=== PATIENT | female | born 1935 | race Caucasian/White ===

== ENCOUNTER 2016-04-04 15:00 | Outpatient (RCR) ==
[2015-12-28 02:20] VITALS: BMI 21.6
--- NOTE | 2016-03-09 09:19 | RS.OPPTDN ---
Subjective Date of Note: 03/07/16 Visit #: 7 Date of Evaluation: 02/23/16 Payer Source: MEDICARE Treatment Diagnosis: Right reverse total shoulder replacement Current Subjective/complaints:: Patient says she has had some stiffness to the R shoulder, but feels her elbow is gaining extension and she is able to reach better. Reports the heat feels like it helps more than the cold. *Precautions: Please follow protocol in pt's chart. Pain Assessment - Pain Description Pain Location: Right upper trap and arm with activity. Right side of neck also painful at times. Current Pain Intensity: 0/10, but increases with exercise - Heat/Cryotherapy Treatment: Hot Pack (15 mins to the R shoulder in supine) Interventions - Exercise/Activities/Manual Therapy Exercises/Activities: 2 sets 10-12 reps of AAROM right shoulder flex, ext, abd/ add, IR/ER, also right elbow extension stretching. Distraction of glenohumeral joint and oscilation of the RUE decreased pain with ex. 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 Contract/Relax multiple reps for elbow flex/ext. 1# ball for fire sprinkler inspector and wrist ext/flexion and elbow sup/pron x 10. Sitting: shoulder shrugs/scap adduction. Ended with pulleys for flexion limited range and table slides. Total minutes of Exercise: 30 Manual Therapy: NA HOME EXERCISE PROGRAM: Patient to follow previous exerciss per MD protocol. She was instructed to allow her elbow to hang by her side and to use the RUE as she was able throughout the day. She verbalized understanding. - Charges Total Direct Minutes: 30 Total Treatment Time: 45 Procedures billed for this date of service:: hp, ex2 Assessment: Patient is gaining mobility slowly to the elbow and shoulder. Pain is not present except with PROM end ranges. She feels improvement with stiffness with heat. Patient Education: Education of diagnosis, Body/Joint mechanics, Home Exercise Program, Home Safety, Activity Modification, Education of Plan of Care Patient demonstrates compliance with HEP?: Yes Short Term Goals Goal #1: Right shoulder flex 100 degrees AAROM Goal to be met by: 03/11/16 Progress towards Goal:: Progressing Goal #2: Right shoulder strength 3+/5 in all planes. Goal to be met by: 03/11/16 Progress towards Goal:: Progressing Goal #3: Right elbow extension -5 degrees. Goal to be met by: 03/11/16 Progress towards Goal:: Progressing Goal #4: Patient independent in beginning HEP. Goal to be met by: 03/11/16 Progress towards Goal:: Progressing [facility] Goals Goal #1: Right shoulder AROM WFL in all planes. Goal to be met by: 04/01/16 Goal #2: Right elbow extension 0 degrees. Goal to be met by: 04/01/16 Goal #3: Right shoulder strength 4 - 4+/5. Goal to be met by: 04/01/16 Goal #4: Independent in advanced HEP. Goal to be met by: 04/01/16 Plan PLAN OF CARE EXPIRES ON:: 04/01/16 ORDER # VISITS AND/OR THROUGH DATE: 04/01/2016 PLAN: Progress Exercises
--- NOTE | 2016-03-09 10:10 | RS.OPPTDN ---
Subjective Date of Note: 03/09/16 Visit #: 8 Date of Evaluation: 02/23/16 Payer Source: MEDICARE Treatment Diagnosis: Right reverse total shoulder replacement Current Subjective/complaints:: Patient states she believes she is improving. Reports she is trying to keep her arm down while she walks so that it may extend better. She says she thinks her elbow swelling and extension is improving. *Precautions: Please follow protocol in pt's chart. Pain Assessment - Pain Description Pain Location: Right upper trap and arm with activity. Right side of neck also painful at times. Current Pain Intensity: 0/10, but increases with exercise - Heat/Cryotherapy Treatment: Hot Pack (20 mins to the R shoulder in sitting) Interventions - Exercise/Activities/Manual Therapy Exercises/Activities: 2 sets 10-12 reps of AAROM right shoulder flex, ext, abd/ add, IR/ER, also right elbow extension stretching. Distraction of glenohumeral joint and oscilation of the RUE decreased pain with ex. 3# and 5# digiflexor for director employee safety and health. Contract/Relax multiple reps for elbow flex/ext. 1# ball for director employee safety and health and wrist ext/flexion and elbow sup/pron x 10. 1# for static elbow extension stretch. MT of STM and DTM to the forearm, biceps to ease guarding to improve extension. Sitting: shoulder shrugs/scap adduction. Continued with further stretching for shoulder and elbow. Ended with pulleys for flexion limited range and table slides. Total minutes of Exercise: 35 Manual Therapy: NA HOME EXERCISE PROGRAM: Patient to follow previous exerciss per MD protocol. She was instructed to allow her elbow to hang by her side and to use the RUE as she was able throughout the day. She verbalized understanding. - Charges Total Direct Minutes: 35 Total Treatment Time: 55 Procedures billed for this date of service:: hp, ex2 Assessment: Patient progressing well with mobility and strength. She displayed full extension with stretching and MT today. Patient Education: Education of diagnosis, Body/Joint mechanics, Home Exercise Program, Home Safety, Activity Modification, Education of Plan of Care Patient demonstrates compliance with HEP?: Yes Short Term Goals Goal #1: Right shoulder flex 100 degrees AAROM Goal to be met by: 03/11/16 Progress towards Goal:: Progressing Goal #2: Right shoulder strength 3+/5 in all planes. Goal to be met by: 03/11/16 Progress towards Goal:: Progressing Goal #3: Right elbow extension -5 degrees. Goal to be met by: 03/11/16 Progress towards Goal:: Progressing Goal #4: Patient independent in beginning HEP. Goal to be met by: 03/11/16 Progress towards Goal:: Progressing [facility] Goals Goal #1: Right shoulder AROM WFL in all planes. Goal to be met by: 04/01/16 Goal #2: Right elbow extension 0 degrees. Goal to be met by: 04/01/16 Goal #3: Right shoulder strength 4 - 4+/5. Goal to be met by: 04/01/16 Goal #4: Independent in advanced HEP. Goal to be met by: 04/01/16 Plan PLAN OF CARE EXPIRES ON:: 04/01/16 ORDER # VISITS AND/OR THROUGH DATE: 04/01/2016 PLAN: Progress Exercises
--- NOTE | 2016-03-10 10:14 | RS.OPPTDN ---
Subjective Date of Note: 03/10/16 Visit #: 8 Date of Evaluation: 02/23/16 Payer Source: MEDICARE Treatment Diagnosis: Right reverse total shoulder replacement Current Subjective/complaints:: Patient says she is happy about her arm getting straighter, but would like to lift her shoulder higher. She says her arm does not really hurt until it is being moved by us (at end ranges or extending the elbow) or with Active flexion. *Precautions: Please follow protocol in pt's chart. Pain Assessment - Pain Description Pain Location: R shoulder with active motion or with end range PROM/stretch to elbow Current Pain Intensity: 0/10, but increases with exercise - Heat/Cryotherapy Treatment: Hot Pack (to the R shoulder and upper arm in sitting x 20) Interventions - Exercise/Activities/Manual Therapy Exercises/Activities: PROM/AAROM of the shoulder for flex/ext, abd/add, short range IR/ER. Also, stretching for the elbow to improve elbow extension. 3# and 5# digiflexor for varitypist. Contract/Relax multiple reps for elbow flex/ext. 1 # ball for varitypist and wrist ext/flexion and elbow sup/pron x 10. 1# for static elbow extension stretch. MT of STM and DTM to the forearm, biceps to ease guarding to improve extension. Sitting: shoulder shrugs/scap adduction. Continued with further stretching for shoulder and elbow. Ended with pulleys for flexion limited range and table slides. Total minutes of Exercise: 30 Manual Therapy: NA HOME EXERCISE PROGRAM: Patient to follow previous exerciss per MD protocol. She was instructed to allow her elbow to hang by her side and to use the RUE as she was able throughout the day. She verbalized understanding. - Charges Total Direct Minutes: 30 Total Treatment Time: 50 Procedures billed for this date of service:: hp, ex2 Assessment: Patient demonstrating improved passive shoulder flexion and elbow extension. Ext is WNL with MT and static stretching. She is able to actively elevate the shoulder 45 degrees in supine, but only about 30 degrees in sitting. AA flexion to 95 with less guarding in supine. Patient Education: Education of diagnosis, Body/Joint mechanics, Home Exercise Program, Home Safety, Activity Modification, Education of Plan of Care Patient demonstrates compliance with HEP?: Yes Short Term Goals Goal #1: Right shoulder flex 100 degrees AAROM Goal to be met by: 03/11/16 Progress towards Goal:: Progressing Goal #2: Right shoulder strength 3+/5 in all planes. Goal to be met by: 03/11/16 Progress towards Goal:: Progressing Goal #3: Right elbow extension -5 degrees. Goal to be met by: 03/11/16 Progress towards Goal:: Progressing Goal #4: Patient independent in beginning HEP. 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 Goal to be met by: 04/01/16 Progress towards goal: Progressing Goal #2: Right elbow extension 0 degrees. Goal to be met by: 04/01/16 Progress towards goal: Progressing Goal #3: Right shoulder strength 4 - 4+/5. Goal to be met by: 04/01/16 Goal #4: Independent in advanced HEP. Goal to be met by: 04/01/16 Plan PLAN OF CARE EXPIRES ON:: 04/01/16 ORDER # VISITS AND/OR THROUGH DATE: 04/01/2016 PLAN: Progress Exercises
--- NOTE | 2016-03-15 10:00 | RS.OPPTDN ---
Subjective Date of Note: 03/15/16 Visit #: 9 Date of Evaluation: 02/23/16 Payer Source: MEDICARE Treatment Diagnosis: Right reverse total shoulder replacement Current Subjective/complaints:: Patient c/o arm being sore all weekend. Describes it as dull ache. She says that she has been performing HEP and stretching her elbow often. She says she has been using heat a lot to decrease pain and improve mobility. *Precautions: Please follow protocol in pt's chart. Pain Assessment - Pain Description Pain Location: R shoulder with active motion or with end range PROM/stretch to elbow Current Pain Intensity: 0/10, but increases with exercise - Heat/Cryotherapy Treatment: Hot Pack (15 mins to the R shoulder (longways) along the biceps and volar surface of forearm) Interventions - Exercise/Activities/Manual Therapy Exercises/Activities: PROM/AAROM of the shoulder for flex/ext, abd/add, short range IR/ER. Also, stretching for the elbow to improve elbow extension. 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 Contract/Relax multiple reps for elbow flex/ext. Active shoulder flexion x 8 reps. 1# ball for offset proof press operator and wrist ext/flexion and elbow sup/pron x 10. 1# for static elbow extension stretch. Continued with MT of STM and DTM to the forearm, biceps to ease guarding to improve extension. Sitting: shoulder shrugs/scap adduction, active shoulder flexion. Continued with further stretching for shoulder and elbow. Ended with pulleys for flexion limited range x 3 mins. Total minutes of Exercise: 35 Manual Therapy: NA HOME EXERCISE PROGRAM: Patient to follow previous exerciss per MD protocol. She was instructed to allow her elbow to hang by her side and to use the RUE as she was able throughout the day. She verbalized understanding. - Charges Total Direct Minutes: 35 Total Treatment Time: 50 Procedures billed for this date of service:: hp, ex2 Assessment: Patient demos 95 degrees shoulder passive flexion, active to 45-50 degrees with beginning to flex the elbow to compensate. She is doing great with demonstrating less need for stretching to acquire full extension. She did have elevated pain over the weekend and self treated with heat and HEP, which did relieve it. She is not taking any pain meds currently. Improved range with pulleys as well. Patient Education: Education of diagnosis, Body/Joint mechanics, Home Exercise Program, Home Safety, Activity Modification, Education of Plan of Care Patient demonstrates compliance with HEP?: Yes Short Term Goals Goal #1: Right shoulder flex 100 degrees AAROM Goal to be met by: 03/11/16 Progress towards Goal:: Progressing Comments:: 90-95 on avg Goal #2: Right shoulder strength 3+/5 in all planes. Goal to be met by: 03/11/16 Progress towards Goal:: Met Goal #3: Right elbow extension -5 degrees. Goal to be met by: 03/11/16 Progress towards Goal:: Progressing Goal #4: Patient independent in beginning HEP. Goal to be met by: 03/11/16 Progress towards Goal:: Met [facility] Goals Goal #1: Right shoulder AROM WFL in all planes. Goal to be met by: 04/01/16 Progress towards goal: Progressing Goal #2: Right elbow extension 0 degrees. Goal to be met by: 04/01/16 Progress towards goal: Progressing Goal #3: Right shoulder strength 4 - 4+/5. Goal to be met by: 04/01/16 Goal #4: Independent in advanced HEP. Goal to be met by: 04/01/16 Plan PLAN OF CARE EXPIRES ON:: 04/01/16 ORDER # VISITS AND/OR THROUGH DATE: 04/01/2016 PLAN: Progress Exercises
--- NOTE | 2016-03-16 14:40 | RS.OPPTDN ---
Subjective Date of Note: 03/16/16 Visit #: 10 Date of Evaluation: 02/23/16 Payer Source: MEDICARE Treatment Diagnosis: Right reverse total shoulder replacement Current Subjective/complaints:: Patient says she has intermittent soreness, but knows she is improving. Reports that she is "working it" often. *Precautions: Please follow protocol in pt's chart. Pain Assessment - Pain Description Pain Location: R shoulder with active motion or with end range PROM/stretch to elbow Current Pain Intensity: 0/10, but increases with exercise - Heat/Cryotherapy Treatment: Hot Pack (20 mins over the volar surface of the R UE and shoulder ( lengthwise)) Interventions - Exercise/Activities/Manual Therapy Exercises/Activities: PROM/AAROM of the shoulder for flex/ext, abd/add, short range IR/ER. Also, stretching for the elbow to improve elbow extension. 3# and 5# digiflexor for sales expert. Contract/Relax multiple reps for elbow flex/ext. Active shoulder flexion x 8 reps. 1# ball for sales expert and wrist ext/flexion and elbow sup/pron x 10. 1# for static elbow extension stretch. Continued with MT of STM and DTM to the forearm, biceps to ease guarding to improve extension. Sitting: Passive flexion and knee/wrist extension, shoulder shrugs/scap adduction, active shoulder flexion. Wall slides with both hands limited range. Total minutes of Exercise: 35 Manual Therapy: NA HOME EXERCISE PROGRAM: Patient to follow previous exerciss per MD protocol. She was instructed to allow her elbow to hang by her side and to use the RUE as she was able throughout the day. She verbalized understanding. - Charges Total Direct Minutes: 35 Total Treatment Time: 55 Procedures billed for this date of service:: ex2, hp Assessment: Patient has progressed with mobility to the R elbow and shoulder well. She does have about 50% limitation in active functional elevation and rotation. She is demo less swelling to the upper arm and increased kayden to more aggressive activity. Patient Education: Education of diagnosis, Body/Joint mechanics, Home Exercise Program, Home Safety, Activity Modification, Education of Plan of Care Patient demonstrates compliance with HEP?: Yes Short Term Goals Goal #1: Right shoulder flex 100 degrees AAROM Goal to be met by: 03/11/16 Progress towards Goal:: Progressing Comments:: 95 degrees max on avg Goal #2: Right shoulder strength 3+/5 in all planes. Goal to be met by: 03/11/16 Progress towards Goal:: Met Goal #3: Right elbow extension -5 degrees. Goal to be met by: 03/11/16 Progress towards Goal:: Partially Met Comments:: 0 with stretching, avg -5-7 degrees Goal #4: Patient independent in beginning HEP. Goal to be met by: 03/11/16 Progress towards Goal:: Met [facility] Goals Goal #1: Right shoulder AROM WFL in all planes. Goal to be met by: 04/01/16 Progress towards goal: Progressing Goal #2: Right elbow extension 0 degrees. Goal to be met by: 04/01/16 Progress towards goal: Progressing Goal #3: Right shoulder strength 4 - 4+/5. Goal to be met by: 04/01/16 Goal #4: Independent in advanced HEP. Goal to be met by: 04/01/16 Plan PLAN OF CARE EXPIRES ON:: 04/01/16 ORDER # VISITS AND/OR THROUGH DATE: 04/01/2016 PLAN: Progress Exercises
--- NOTE | 2016-03-18 10:11 | RS.CXNS ---
Date of scheduled appointment: 03/18/16 Type: Cancel (weather)
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
--- NOTE | 2016-03-23 09:51 | RS.OPPTDN ---
Subjective Date of Note: 03/23/16 Visit #: 12 Date of Evaluation: 02/23/16 Payer Source: MEDICARE Treatment Diagnosis: Right reverse total shoulder replacement Current Subjective/complaints:: Patient says she is still trying to perform her HEP as often as she can. Says she uses heat a lot for pain. States she is able to see improvement with therapy and how much more her arm is able to move, but difficult for her to do on her own. *Precautions: Please follow protocol in pt's chart. Pain Assessment - Pain Description Pain Location: R shoulder and upper arm, under the arm and at the shoulderblade. Current Pain Intensity: increased stiffness and sore today - Heat/Cryotherapy Treatment: Hot Pack (15 mins to the R shoulder and forearm in a stretched position in sitting) Interventions - Exercise/Activities/Manual Therapy Exercises/Activities: PROM/AAROM of the shoulder for flex/ext, abd/add, short range IR/ER. Also, stretching for the elbow to improve elbow extension. 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 Manual isometrics for flex/ext, IR/ER 2x5. Contract/Relax multiple reps for elbow flex/ext. Active shoulder flexion x 8 reps. 1# ball for ore miner blasting and wrist ext/flexion and elbow sup/pron x 10. 1# for static elbow extension stretch over pillow. Continued with MT of STM and DTM to the forearm, biceps to ease guarding to improve extension. Sitting: shoulder shrugs/scap adduction, AA shoulder flexion and then active. Shoulder pulleys for 3mins. Total minutes of Exercise: 33 Manual Therapy: NA HOME EXERCISE PROGRAM: Patient to follow previous exerciss per MD protocol. She was instructed to allow her elbow to hang by her side and to use the RUE as she was able throughout the day. She verbalized understanding. - Charges Total Direct Minutes: 33 Total Treatment Time: 48 Procedures billed for this date of service:: hp, ex2 Assessment: Patient able to kayden increased passive and AA shoulder flexion in sitting. She appears to be consistent with HEP. Remains with elbow extension limitation actively, but passively able to achieve WNL. Patient Education: Education of diagnosis, Body/Joint mechanics, Home Exercise Program, Home Safety, Activity Modification, Education of Plan of Care Patient demonstrates compliance with HEP?: Yes Short Term Goals Goal #1: Right shoulder flex 100 degrees AAROM Goal to be met by: 03/11/16 Progress towards Goal:: Progressing Goal #2: Right shoulder strength 3+/5 in all planes. Goal to be met by: 03/11/16 Progress towards Goal:: Met Goal #3: Right elbow extension -5 degrees. Goal to be met by: 03/11/16 Progress towards Goal:: Partially Met Comments:: passively Goal #4: Patient independent in beginning HEP. Goal to be met by: 03/11/16 Progress towards Goal:: Met Clinical Trainer Goals Goal #1: Right shoulder AROM WFL in all planes. Goal to be met by: 04/01/16 Progress towards goal: Progressing Goal #2: Right elbow extension 0 degrees. Goal to be met by: 04/01/16 Progress towards goal: Progressing Goal #3: Right shoulder strength 4 - 4+/5. Goal to be met by: 04/01/16 Goal #4: Independent in advanced HEP. Goal to be met by: 04/01/16 Plan PLAN OF CARE EXPIRES ON:: 04/01/16 ORDER # VISITS AND/OR THROUGH DATE: 04/01/2016 PLAN: Progress Exercises
--- NOTE | 2016-03-23 13:54 | RS.PTSUM ---
Progress Note/Summary Date of Note: 03/23/16 Date of Evaluation: 02/23/16 Number of Visits: 10 Reporting Period for this Progress Note: 02/23/16 through 03/16/16 Current Complaints/Gains: Patient reports less pain with mobility. She denies pain unless at endrange with PROM. She is not taking pain medication. Reports she is performing HEP often and also reports she is sleeping well. Objective Measurements/Presentation: PROM shoulder flexion 90-95 degrees in supine and sitting. Active shoulder flexion is 25-30 before pain. 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 Demonstrates good demonstration of HEP. G Codes: Carry current CK. Carry goal CJ Source of G Code Score: UE functional scale 43/80=46% impairment (score at evaluation was 19/80=76% impairment) - Short Term Goals Goal #1: Right shoulder flex 100 degrees AAROM Goal to be met by: 04/06/16 Progress towards Goal:: Progressing Goal #2: Right shoulder strength 4/5 in all planes. Goal to be met by: 04/06/16 Goal #3: Right elbow extension -5 degrees. Goal to be met by: 04/06/16 Progress towards Goal:: Partially Met Goal #4: Patient independent in beginning HEP. Goal to be met by: 03/11/16 Progress towards Goal:: Met - Candle Maker Goals Goal #1: Right shoulder AROM WFL in all planes. Goal to be met by: 04/22/16 Progress towards goal: Progressing Goal #2: Right elbow extension 0 degrees. Goal to be met by: 04/22/16 Progress towards goal: Progressing Goal #3: Right shoulder strength 4 - 4+/5. Goal to be met by: 04/22/16 Goal #4: Independent in advanced HEP. Goal to be met by: 04/22/16 - Assessment Assessment of Improvement/Progress: Patient demonstrates progress with PROM and with subjective reports of less pain and improved sleep. She exhibits an improved functional score on the FOM from 76% to 46% impairment. She continues to demonstrate limited functional reaching due to limited AROM of the right shoulder. She is right hand dominant and requires further therapy to gain functional AROM to perform selfcare and ADL's. - Plan Plan: Continue Plan of Care Comments: We have requested an order to continue therapy 4 more weeks. PLAN OF CARE EXPIRES ON:: 04/22/16 ORDER # VISITS AND/OR THROUGH DATE: 04/22/16
--- NOTE | 2016-03-24 10:28 | RS.OPPTDN ---
Subjective Date of Note: 03/24/16 Visit #: 13 Date of Evaluation: 02/23/16 Payer Source: MEDICARE Treatment Diagnosis: Right reverse total shoulder replacement Current Subjective/complaints:: Patient says she notices she can raise her arm more last night. States she is working on HEP. *Precautions: Please follow protocol in pt's chart. Pain Assessment - Pain Description Pain Location: R shoulder and upper arm, under the arm and at the shoulderblade. Current Pain Intensity: increased stiffness and sore today - Heat/Cryotherapy Treatment: Hot Pack (lengthwise over the R shoulder/forearm x 20 mins in sitting ) Interventions - Exercise/Activities/Manual Therapy Exercises/Activities: PROM/AAROM of the shoulder for flex/ext, abd/add, short range IR/ER. Also, stretching for the elbow to improve elbow extension. 3# and 5# digiflexor for laundry machine operator. Manual isometrics for flex/ext, IR/ER 2x5. Contract/Relax multiple reps for elbow flex/ext. Active shoulder flexion 3x5 reps with further passive after end range actively. 1# dumbell for laundry machine operator and wrist ext/flexion and elbow sup/pron x 10. 1# for static elbow extension stretch over pillow. Continued with MT of STM and DTM to the forearm, biceps to ease guarding to improve extension. Sitting: shoulder shrugs/scap adduction, AA shoulder flexion and then active. Red tband for therapy stick retraction 2/ 5. Total minutes of Exercise: 30 Manual Therapy: NA HOME EXERCISE PROGRAM: Patient to follow previous exerciss per MD protocol. She was instructed to allow her elbow to hang by her side and to use the RUE as she was able throughout the day. She verbalized understanding. - Charges Total Direct Minutes: 30 Total Treatment Time: 50 Procedures billed for this date of service:: hp, ex2 Assessment: Patient kayden all therex much better today, demos increased passive ABD and active shoulder flexion in supine with less pain and no shaking as she consistently had before today. Patient Education: Education of diagnosis, Body/Joint mechanics, Home Exercise Program, Home Safety, Activity Modification, Education of Plan of Care Patient demonstrates compliance with HEP?: Yes Short Term Goals Goal #1: Right shoulder flex 100 degrees AAROM Goal to be met by: 04/06/16 Progress towards Goal:: Progressing Goal #2: Right shoulder strength 4/5 in all planes. Goal to be met by: 04/06/16 Goal #3: Right elbow extension -5 degrees. Goal to be met by: 04/06/16 Progress towards Goal:: Partially Met Goal #4: Patient independent in beginning HEP. Goal to be met by: 03/11/16 Progress towards Goal:: Met Group Home Goals Goal #1: Right shoulder AROM WFL in all planes. Goal to be met by: 04/22/16 Progress towards goal: Progressing Goal #2: Right elbow extension 0 degrees. Goal to be met by: 04/22/16 Progress towards goal: Progressing Goal #3: Right shoulder strength 4 - 4+/5. Goal to be met by: 04/22/16 Goal #4: Independent in advanced HEP. Goal to be met by: 04/22/16 Plan PLAN OF CARE EXPIRES ON:: 04/22/16 ORDER # VISITS AND/OR THROUGH DATE: 04/22/16 PLAN: Progress Exercises
--- NOTE | 2016-03-29 10:29 | RS.OPPTDN ---
Subjective Date of Note: 03/29/16 Visit #: 14 Date of Evaluation: 02/23/16 Payer Source: MEDICARE Treatment Diagnosis: Right reverse total shoulder replacement Current Subjective/complaints:: Patient states she has been working on ex at home, but does not know what else to do to make her elbow straight. Many variations were given today to help with this stretch. She is having pain only with end ranges passively or if she actively raises in supine/sitting. She says she still has trouble trying to get a non-buttoned shirt on (over her head) . *Precautions: Please follow protocol in pt's chart. Pain Assessment - Pain Description Pain Location: R shoulder and upper arm, under the arm and at the shoulderblade. Current Pain Intensity: increased stiffness and sore today - Heat/Cryotherapy Treatment: Hot Pack (20 mins to the L shoulder in sitting.) Interventions - Exercise/Activities/Manual Therapy Exercises/Activities: PROM/AAROM of the shoulder for flex/ext, abd/add, short range IR/ER. Also, stretching for the elbow to improve elbow extension. 5 # digiflexor for woven label designer. Manual isometrics for flex/ext, IR/ER 2x5. Contract/ Relax multiple reps for elbow flex/ext. Active shoulder flexion 3x5 reps with further passive after end range actively. Progressed to 2# dumbell for woven label designer and wrist ext/flexion and elbow sup/pron x 10. 2# for static elbow extension stretch over pillow. Continued with MT of STM and DTM to the forearm, biceps to ease guarding to improve extension. Sitting: shoulder shrugs/scap adduction, AA shoulder flexion and then active. Red tband for therapy stick retraction 2/ 5. Total minutes of Exercise: 35 Manual Therapy: NA HOME EXERCISE PROGRAM: Patient to follow previous exerciss per MD protocol. She was instructed to allow her elbow to hang by her side and to use the RUE as she was able throughout the day. She verbalized understanding. - Charges Total Direct Minutes: 35 Total Treatment Time: 55 Procedures billed for this date of service:: ex2, hp Assessment: Patient shows less pain with increased PROM and increased AROM seen with scaption and flexion in supine. Sitting, patient is able to kayden increased Passive flexion. Good control with eccentric flex and with all elbow and wrist as well (using weight with the latter two). Patient Education: Education of diagnosis, Body/Joint mechanics, Home Exercise Program, Home Safety, Activity Modification, Education of Plan of Care Patient demonstrates compliance with HEP?: Yes Short Term Goals Goal #1: Right shoulder flex 100 degrees AAROM Goal to be met by: 04/06/16 Progress towards Goal:: Progressing Goal #2: Right shoulder strength 4/5 in all planes. Goal to be met by: 04/06/16 Goal #3: Right elbow extension -5 degrees. Goal to be met by: 04/06/16 Progress towards Goal:: Partially Met Goal #4: Patient independent in beginning HEP. Goal to be met by: 03/11/16 Progress towards Goal:: Met Board Certified Music Therapist Goals Goal #1: Right shoulder AROM WFL in all planes. Goal to be met by: 04/22/16 Progress towards goal: Progressing Goal #2: Right elbow extension 0 degrees. Goal to be met by: 04/22/16 Progress towards goal: Progressing Goal #3: Right shoulder strength 4 - 4+/5. Goal to be met by: 04/22/16 Goal #4: Independent in advanced HEP. Goal to be met by: 04/22/16 Plan PLAN OF CARE EXPIRES ON:: 04/22/16 ORDER # VISITS AND/OR THROUGH DATE: 04/22/16 PLAN: Progress Exercises
--- NOTE | 2016-03-30 11:32 | RS.OPPTDN ---
Subjective Date of Note: 03/30/16 Visit #: 15 Date of Evaluation: 02/23/16 Payer Source: MEDICARE Treatment Diagnosis: Right reverse total shoulder replacement Current Subjective/complaints:: Patient says she has been working on exercises yesterday all day, mainly focusing on straightening the elbow. She also says she is worried about continued pain at the R shoulder. Encouraged her that this is a surgery that will take time to heal and may take up to 12 months and she is making progress. *Precautions: Please follow protocol in pt's chart. Pain Assessment - Pain Description Pain Location: R shoulder and upper arm, under the arm and at the shoulderblade. Current Pain Intensity: increased stiffness and sore today - Heat/Cryotherapy Treatment: Hot Pack (20 mins to the R forearm and shoulder lengthwise in sitting , with elbow ext) Interventions - Exercise/Activities/Manual Therapy Exercises/Activities: Continued with PROM/AAROM of the shoulder for flex/ext, abd/add, short range IR/ER. Also, stretching for the elbow to improve elbow extension. 5# digiflexor for dog or horse racing official. Manual isometrics for flex/ext, IR/ER 2x5. Contract/Relax multiple reps for elbow flex/ext. Active shoulder flexion 3x5 reps with further passive after end range actively. Progressed to 2# dumbell for dog or horse racing official and wrist ext/flexion and elbow sup/pron x 10. 1# and 2# for static elbow extension stretch over pillow. Active shoulder "punches" in supine and Active shoulder flexion in supine. 1# therapy stick for bilateral shoulder flexion and press ups 3/5. Sitting: shoulder shrugs/scap adduction, AA shoulder flexion and then active. Total minutes of Exercise: 36 Manual Therapy: NA HOME EXERCISE PROGRAM: Patient to follow previous exerciss per MD protocol. She was instructed to allow her elbow to hang by her side and to use the RUE as she was able throughout the day. She verbalized understanding. - Charges Total Direct Minutes: 36 Total Treatment Time: 51 Procedures billed for this date of service:: hp, ex2 Assessment: Patient demo increased AAROM of the R shoulder during wand exercises , showing good control with eccentric contraction as well as increased Active flexion in sitting with less shaking. Patient more encouraged and felt good about progress during session today and especially after she had seen how well mobility is improving. Patient Education: Education of diagnosis, Body/Joint mechanics, Home Exercise Program, Home Safety, Activity Modification, Education of Plan of Care Patient demonstrates compliance with HEP?: Yes Short Term Goals Goal #1: Right shoulder flex 100 degrees AAROM Goal to be met by: 04/06/16 (75%) Progress towards Goal:: Progressing Goal #2: Right shoulder strength 4/5 in all planes. Goal to be met by: 04/06/16 Goal #3: Right elbow extension -5 degrees. Goal to be met by: 04/06/16 Progress towards Goal:: Partially Met Goal #4: Patient independent in beginning HEP. Goal to be met by: 03/11/16 Progress towards Goal:: Met [facility] Goals Goal #1: Right shoulder AROM WFL in all planes. Goal to be met by: 04/22/16 Progress towards goal: Progressing Goal #2: Right elbow extension 0 degrees. Goal to be met by: 04/22/16 Progress towards goal: Progressing Goal #3: Right shoulder strength 4 - 4+/5. Goal to be met by: 04/22/16 Goal #4: Independent in advanced HEP. Goal to be met by: 04/22/16 Plan PLAN OF CARE EXPIRES ON:: 04/22/16 ORDER # VISITS AND/OR THROUGH DATE: 04/22/16 PLAN: Progress Exercises
--- NOTE | 2016-04-01 12:15 | RS.OPPTDN ---
Subjective Date of Note: 04/01/16 Visit #: 16 Date of Evaluation: 02/23/16 Payer Source: MEDICARE Treatment Diagnosis: Right reverse total shoulder replacement Current Subjective/complaints:: Patient says, "I'm really trying to keep my arm straight." "I work on it all the time." She reports she can tell she is able to lift her arm higher and better. *Precautions: Please follow protocol in pt's chart. Pain Assessment - Pain Description Pain Location: R shoulder and upper arm, under the arm and at the shoulderblade. Current Pain Intensity: pain meds are not taken prior to PT or any other time throughout her day - Heat/Cryotherapy Treatment: Hot Pack (20 mins lengthwise along the R forearm and shoulder in extension stretch (elbow)) Interventions - Exercise/Activities/Manual Therapy Exercises/Activities: Continued with PROM/AAROM of the shoulder for flex/ext, abd/add, short range IR/ER. Also, stretching for the elbow to improve elbow extension. Manual isometrics for flex/ext, IR/ER 2x5. Contract/Relax multiple reps for elbow flex/ext. Active shoulder flexion 3x5 reps with further passive after end range actively. 1# dumbell for rolling up machine operator and wrist ext/ flexion and elbow sup/pron x 10. 1# and 2# for static elbow extension stretch over pillow as well as for supination. Joint mobs to improve elbow supination and extension. Grades I and II. Active shoulder "punches" in supine and Active shoulder flexion in supine. 1# therapy stick for bilateral shoulder flexion and press ups 3/5. Sitting: shoulder shrugs/scap adduction, AA shoulder flexion and then active. Plant Nursery Worker strength and mobility measurements taken. Total minutes of Exercise: 35 Manual Therapy: NA HOME EXERCISE PROGRAM: Patient to follow previous exerciss per MD protocol. She was instructed to allow her elbow to hang by her side and to use the RUE as she was able throughout the day. She verbalized understanding. - Objective Findings Observations,measurements,etc.: Plant Nursery Worker strength 20# in 3rd position for the R, 21 # for the L. Active Flexion in sitting 62 degrees, abd 55 degrees, but with compensation. . Passive Flexion 93 degrees, Abd in scaption plane for comfort 70 degrees. - Charges Total Direct Minutes: 35 Total Treatment Time: 55 Procedures billed for this date of service:: hp, ex2 Assessment: Improved kayden for increasing exercises in the department and patient is more consistent with therex at home. She is more encouraged about her progress at this point because she can see her improvement better and only experiencing pain at end range passively or with active flexion. She has slightly more limitation of flexion in sitting than supine, but in the past week , she is able to relax more and demos improved mobility. Patient Education: Education of diagnosis, Body/Joint mechanics, Home Exercise Program, Home Safety, Activity Modification, Education of Plan of Care Patient demonstrates compliance with HEP?: Yes Short Term Goals Goal #1: Right shoulder flex 100 degrees AAROM Goal to be met by: 04/06/16 (75%) Progress towards Goal:: Progressing Goal #2: Right shoulder strength 4/5 in all planes. Goal to be met by: 04/06/16 Goal #3: Right elbow extension -5 degrees. Goal to be met by: 04/06/16 Progress towards Goal:: Partially Met Goal #4: Patient independent in beginning HEP. Goal to be met by: 03/11/16 Progress towards Goal:: Met Cementer Machine Applicator Goals Goal #1: Right shoulder AROM WFL in all planes. Goal to be met by: 04/22/16 Progress towards goal: Progressing Goal #2: Right elbow extension 0 degrees. Goal to be met by: 04/22/16 Progress towards goal: Progressing Goal #3: Right shoulder strength 4 - 4+/5. Goal to be met by: 04/22/16 Goal #4: Independent in advanced HEP. Goal to be met by: 04/22/16 Plan PLAN OF CARE EXPIRES ON:: 04/22/16 ORDER # VISITS AND/OR THROUGH DATE: 04/22/16 PLAN: Progress Exercises Comments:: Patient returns to MD April 04. Anticipate continuation orders.
--- NOTE | 2016-04-04 16:15 | RS.OPPTDN ---
Subjective Date of Note: 04/04/16 Visit #: 17 Date of Evaluation: 02/23/16 Payer Source: MEDICARE Treatment Diagnosis: Right reverse total shoulder replacement Current Subjective/complaints:: Patient very happy. She has had a good report from her ortho this morning and presents with continuation orders 2-3 times per week x 4-6 weeks. She says xray looked great and she may now work on more exercises at home. She says she would like heat today because she is fatigued from 2 prior appts and a little stiff. *Precautions: Please follow protocol in pt's chart. Pain Assessment - Pain Description Pain Location: R shoulder and upper arm, under the arm and at the shoulderblade. Current Pain Intensity: pain meds are not taken prior to PT or any other time throughout her day - Heat/Cryotherapy Treatment: Hot Pack (20 mins to the R shoulder in sitting with elbow extended) Interventions - Exercise/Activities/Manual Therapy Exercises/Activities: Continued with PROM/AAROM of the shoulder for flex/ext, abd/add, short range IR/ER. Also, continued stretching for the elbow to improve elbow extension. Manual isometrics for flex/ext, IR/ER 2x5. Contract /Relax multiple reps for elbow flex/ext. Active shoulder flexion 3x5 reps with further passive after end range actively. 1# dumbell for soft work wrapper layer and examiner and wrist ext/ flexion and elbow sup/pron x 10. 1# dumbell for stretching to elbow extension and as for supination. Joint mobs to improve elbow supination and extension. Active shoulder "punches" in supine and Active shoulder flexion in supine. 1 # therapy stick for bilateral shoulder flexion and press ups 3/5. Sitting: shoulder shrugs/scap adduction, AA shoulder flexion and then active. Total minutes of Exercise: 35 Manual Therapy: NA HOME EXERCISE PROGRAM: Patient to follow previous exerciss per MD protocol. She was instructed to allow her elbow to hang by her side and to use the RUE as she was able throughout the day. She verbalized understanding. - Charges Total Direct Minutes: 35 Total Treatment Time: 55 Procedures billed for this date of service:: jorje hanley Assessment: Patient received a continuation order 2-3 x 4-6 more weeks. Patient received positive feedback from her ortho today. She was more fatigued today than usual due to several appointments. Patient Education: Education of diagnosis, Body/Joint mechanics, Home Exercise Program, Home Safety, Activity Modification, Education of Plan of Care Patient demonstrates compliance with HEP?: Yes Short Term Goals Goal #1: Right shoulder flex 100 degrees AAROM Goal to be met by: 04/06/16 (75%) Progress towards Goal:: Progressing Goal #2: Right shoulder strength 4/5 in all planes. Goal to be met by: 04/06/16 Goal #3: Right elbow extension -5 degrees. Goal to be met by: 04/06/16 Progress towards Goal:: Partially Met Goal #4: Patient independent in beginning HEP. Goal to be met by: 03/11/16 Progress towards Goal:: Met Flight Engineer Manager Goals Goal #1: Right shoulder AROM WFL in all planes. Goal to be met by: 04/22/16 Progress towards goal: Progressing Goal #2: Right elbow extension 0 degrees. Goal to be met by: 04/22/16 Progress towards goal: Progressing Goal #3: Right shoulder strength 4 - 4+/5. Goal to be met by: 04/22/16 Goal #4: Independent in advanced HEP. Goal to be met by: 04/22/16 Plan PLAN OF CARE EXPIRES ON:: 04/22/16 ORDER # VISITS AND/OR THROUGH DATE: 04/22/16 PLAN: Progress Exercises
== END 2016-04-05 ==
PROVIDERS: ATTEND Orthopaedic Surgery
DX: S42.291A Other displaced fracture of upper end of right humerus, initial encounter for closed fracture (principal); M25.511 Pain in right shoulder

== ENCOUNTER 2016-04-29 14:00 | Outpatient (RCR) ==
[2015-12-28 02:20] VITALS: BMI 21.6
--- NOTE | 2016-04-06 15:24 | RS.OPPTDN ---
Subjective Date of Note: 04/06/16 Visit #: 18 Date of Evaluation: 02/23/16 Payer Source: MEDICARE Treatment Diagnosis: Right reverse total shoulder replacement Current Subjective/complaints:: Patient states she hurt all last night and this morning. She says she does not know why. States after she took a hot shower, pain was greatly relieved. Patient says she is working on lifting her shoulder at home with help from the [facility]. *Precautions: Please follow protocol in pt's chart. Pain Assessment - Pain Description Pain Location: R shoulder and upper arm, under the arm and at the shoulderblade. Current Pain Intensity: Patient did take ibuprofen last night to get relief - Heat/Cryotherapy Treatment: Hot Pack (15 mins to the R shoulder and anterior forearm) Interventions - Exercise/Activities/Manual Therapy Exercises/Activities: Continued with PROM/AAROM of the shoulder for flex/ext, abd/add, short range IR/ER. Also, continued stretching for the elbow to improve elbow extension. Manual isometrics for flex/ext, IR/ER 2x5. Active shoulder flexion 3x5 reps with further passive after end range actively. 1# dumbell for dining room hostess and wrist ext/flexion and elbow sup/pron x 10. 1# dumbell for stretching to elbow extension and as for supination. Active shoulder "punches" in supine and Active shoulder flexion in supine. 1# therapy stick for bilateral shoulder flexion and press ups 3/5. Sitting: shoulder shrugs/scap adduction, AA shoulder flexion and then active. Total minutes of Exercise: 34 Manual Therapy: NA HOME EXERCISE PROGRAM: Patient to follow previous exerciss per MD protocol. She was instructed to allow her elbow to hang by her side and to use the RUE as she was able throughout the day. She verbalized understanding. - Charges Total Direct Minutes: 34 Total Treatment Time: 49 Procedures billed for this date of service:: hp, ex2 Assessment: Patient has had elevated pain to the R scapula and whole shoulder/ upper arm region last night and this morning for unknown reasons. She did gain relief through ibuprofen and taking hot shower. She also felt better after PT session today gaining active and passive flexion as well as showing improved muscle guarding with ROM. Patient Education: Education of diagnosis, Body/Joint mechanics, Home Exercise Program, Home Safety, Activity Modification, Education of Plan of Care Patient demonstrates compliance with HEP?: Yes Short Term Goals Goal #1: Right shoulder flex 100 degrees AAROM Goal to be met by: 04/06/16 (75%) Progress towards Goal:: Progressing Goal #2: Right shoulder strength 4/5 in all planes. Goal to be met by: 04/06/16 Progress towards Goal:: Progressing Goal #3: Right elbow extension -5 degrees. Goal to be met by: 04/06/16 Progress towards Goal:: Partially Met Goal #4: Patient independent in beginning HEP. Goal to be met by: 03/11/16 Progress towards Goal:: Met Study Manager Goals Goal #1: Right shoulder AROM WFL in all planes. Goal to be met by: 04/22/16 Progress towards goal: Progressing Goal #2: Right elbow extension 0 degrees. Goal to be met by: 04/22/16 Progress towards goal: Progressing Goal #3: Right shoulder strength 4 - 4+/5. Goal to be met by: 04/22/16 Goal #4: Independent in advanced HEP. Goal to be met by: 04/22/16 Plan PLAN OF CARE EXPIRES ON:: 04/22/16 ORDER # VISITS AND/OR THROUGH DATE: 04/22/16 PLAN: Progress Exercises
--- NOTE | 2016-04-08 10:54 | RS.OPPTDN ---
Subjective Date of Note: 04/08/16 Visit #: 19 Date of Evaluation: 02/23/16 Payer Source: MEDICARE Treatment Diagnosis: Right reverse total shoulder replacement Current Subjective/complaints:: Patient says she has been performing exercises this morning already. Reports she is pleased that she can raise it higher than she has in the past. She feels once warmer weather arrives, her mobility will be even better. *Precautions: Please follow protocol in pt's chart. Pain Assessment - Pain Description Pain Location: R shoulder and upper arm, under the arm and at the shoulderblade. - Heat/Cryotherapy Treatment: Hot Pack (R scapula, shoulder and forearm x 20 mins) Interventions - Exercise/Activities/Manual Therapy Exercises/Activities: Continued with PROM/AAROM of the shoulder for flex/ext, abd/add, short range IR/ER. Also, continued stretching for the elbow to improve elbow extension. Manual isometrics for flex/ext, IR/ER 2x5. Active shoulder flexion 3x5 reps with further passive after end range actively. 1# dumbell for fitter mechanic and wrist ext/flexion and elbow sup/pron x 10. 1# dumbell for stretching to elbow extension and as for supination. Active shoulder "punches" in supine and Active shoulder flexion in supine. 1# therapy stick for bilateral shoulder flexion and press ups 3/5. Sitting: shoulder shrugs/scap adduction, AA shoulder flexion and then active. Red ttheraband on therapy stick for scap retraction 2 x 10. Finished with shoulder pulleys x 3 mins slowly with self static stretches at end ranges. Total minutes of Exercise: 35 Manual Therapy: NA HOME EXERCISE PROGRAM: Patient to follow previous exerciss per MD protocol. She was instructed to allow her elbow to hang by her side and to use the RUE as she was able throughout the day. She verbalized understanding. - Charges Total Direct Minutes: 35 Total Treatment Time: 55 Procedures billed for this date of service:: hp, ex2 Assessment: Patient continues to demo improved ease with progressing exercises. She is able to actively flex the shoulder at home, thus allowing her to perform functiona activities better. Patient Education: Education of diagnosis, Body/Joint mechanics, Home Exercise Program, Home Safety, Activity Modification, Education of Plan of Care Patient demonstrates compliance with HEP?: Yes Short Term Goals Goal #1: Right shoulder flex 100 degrees AAROM Goal to be met by: 04/06/16 (75%) Progress towards Goal:: Progressing Goal #2: Right shoulder strength 4/5 in all planes. Goal to be met by: 04/06/16 Progress towards Goal:: Progressing Goal #3: Right elbow extension -5 degrees. Goal to be met by: 04/06/16 Progress towards Goal:: Partially Met Goal #4: Patient independent in beginning HEP. Goal to be met by: 03/11/16 Progress towards Goal:: Met Shot Dropper Goals Goal #1: Right shoulder AROM WFL in all planes. Goal to be met by: 05/16/16 Progress towards goal: Progressing Goal #2: Right elbow extension 0 degrees. Goal to be met by: 05/16/16 Progress towards goal: Progressing Goal #3: Right shoulder strength 4 - 4+/5. Goal to be met by: 05/16/16 Goal #4: Independent in advanced HEP. Goal to be met by: 05/16/16 Plan PLAN OF CARE EXPIRES ON:: 05/16/16 ORDER # VISITS AND/OR THROUGH DATE: New continuation orders as of 04/04/16 2-3 x 4-6 wks PLAN: Progress Exercises
--- NOTE | 2016-04-11 10:43 | RS.OPPTDN ---
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 She says she continues to see improvement with Active flexion, but slowly. *Precautions: Please follow protocol in pt's chart. Pain Assessment - Pain Description Pain Location: R shoulder and upper arm, under the arm and at the shoulderblade. - Heat/Cryotherapy Treatment: Hot Pack (to the R shoulder/scapula/and volar surface of lower arm sitting x 20 mins) Interventions - Exercise/Activities/Manual Therapy Exercises/Activities: Continued with PROM/AAROM of the shoulder for flex/ext, abd/add, short range IR/ER. Also, continued stretching for the elbow to improve elbow extension. Manual isometrics for flex/ext, IR/ER 2x5. Active shoulder flexion 3x5 reps with further passive after end range actively. Active reaching in supine 3/5. 1# dumbell for maintainer operator and wrist ext/flexion and elbow sup/pron 2 x 10. 1# dumbell for stretching to elbow extension and as for supination. 1# therapy stick for bilateral shoulder flexion and press ups 2/ 5. 1# therapy stick for abd. Sitting: shoulder shrugs/scap adduction, AA shoulder flexion and then active. Red theraband on therapy stick for scap retraction 2 x 10. Total minutes of Exercise: 34 Manual Therapy: NA HOME EXERCISE PROGRAM: Patient to follow previous exerciss per MD protocol. She was instructed to allow her elbow to hang by her side and to use the RUE as she was able throughout the day. She verbalized understanding. - Charges Total Direct Minutes: 34 Total Treatment Time: 54 Procedures billed for this date of service:: hp, ex2 Assessment: Patient very compliant with HEP and demo increased passive shoulder flexion to 98 degrees today and improved control of Active shoulder flexion while maintaining elbow extension longer. Patient Education: Education of diagnosis, Body/Joint mechanics, Home Exercise Program, Home Safety, Activity Modification, Education of Plan of Care Patient demonstrates compliance with HEP?: Yes Short Term Goals Goal #1: Right shoulder flex 100 degrees AAROM Goal to be met by: 04/06/16 (75%) Progress towards Goal:: Progressing Goal #2: Right shoulder strength 4/5 in all planes. Goal to be met by: 04/06/16 Progress towards Goal:: Progressing Goal #3: Right elbow extension -5 degrees. Goal to be met by: 04/06/16 Progress towards Goal:: Partially Met Goal #4: Patient independent in beginning HEP. Goal to be met by: 03/11/16 Progress towards Goal:: Met Retirement Goals Goal #1: Right shoulder AROM WFL in all planes. Goal to be met by: 05/16/16 Progress towards goal: Progressing Goal #2: Right elbow extension 0 degrees. Goal to be met by: 05/16/16 Progress towards goal: Progressing Goal #3: Right shoulder strength 4 - 4+/5. Goal to be met by: 05/16/16 Goal #4: Independent in advanced HEP. Goal to be met by: 05/16/16 Plan PLAN OF CARE EXPIRES ON:: 05/16/16 ORDER # VISITS AND/OR THROUGH DATE: New continuation orders as of 04/04/16 2-3 x 4-6 wks PLAN: Progress Exercises
--- NOTE | 2016-04-13 11:52 | RS.OPPTDN ---
Subjective Date of Note: 04/13/16 Visit #: 21 Date of Evaluation: 02/23/16 Payer Source: MEDICARE Treatment Diagnosis: Right reverse total shoulder replacement Current Subjective/complaints:: Patient continues to say she feels she is gaining motion slowly. States she is working on AA abd/flexion with yardstick at home. *Precautions: Please follow protocol in pt's chart. Pain Assessment - Pain Description Pain Location: R shoulder and upper arm, under the arm and at the shoulderblade. Current Pain Intensity: stiffness/ache intermittently - Heat/Cryotherapy Treatment: Hot Pack (R shoulder and volar forearm in sitting x 20 mins) Interventions - Exercise/Activities/Manual Therapy Exercises/Activities: Progressive stretching with PROM/AAROM of the shoulder for flex/ext, abd/add, short range IR/ER. Also, continued stretching for the elbow to improve elbow extension. Manual isometrics for flex/ext, IR/ER 2x5. Active shoulder flexion 3x5 reps with further passive after end range actively. Active reaching in supine 3/5. Progressed to 2# dumbell for train system operator and wrist ext/flexion and elbow sup/pron 2 x 10. 2# dumbell for stretching to elbow extension and as for supination. Sitting: Passive cervical SB and rotation stretching to the L, 1# therapy stick for bilateral shoulder flexion, 1# therapy stick for abd. Shoulder shrugs/scap adduction, AA shoulder flexion and then active. Standing: holding 2# dumbell for elbow extension. Total minutes of Exercise: 36 Manual Therapy: NA HOME EXERCISE PROGRAM: Patient to follow previous exerciss per MD protocol. She was instructed to allow her elbow to hang by her side and to use the RUE as she was able throughout the day. She verbalized understanding. - Charges Total Direct Minutes: 36 Total Treatment Time: 56 Procedures billed for this date of service:: hp, ex2 Assessment: Improved elbow extension at rest to -4 degrees. Passively or with holding weight statically, presents at 0 degrees. Tolerating increased passive flexion and active abd today. Patient Education: Education of diagnosis, Body/Joint mechanics, Home Exercise Program, Home Safety, Activity Modification, Education of Plan of Care Patient demonstrates compliance with HEP?: Yes Short Term Goals Goal #1: Right shoulder flex 100 degrees AAROM Goal to be met by: 04/06/16 (75%) Progress towards Goal:: Progressing Goal #2: Right shoulder strength 4/5 in all planes. Goal to be met by: 04/06/16 Progress towards Goal:: Progressing Goal #3: Right elbow extension -5 degrees. Goal to be met by: 04/06/16 Progress towards Goal:: Met Goal #4: Patient independent in beginning HEP. Goal to be met by: 03/11/16 Progress towards Goal:: Met Magazine Editor Goals Goal #1: Right shoulder AROM WFL in all planes. Goal to be met by: 05/16/16 Progress towards goal: Progressing Goal #2: Right elbow extension 0 degrees. Goal to be met by: 05/16/16 Progress towards goal: Progressing Goal #3: Right shoulder strength 4 - 4+/5. Goal to be met by: 05/16/16 Goal #4: Independent in advanced HEP. Goal to be met by: 05/16/16 Plan PLAN OF CARE EXPIRES ON:: 05/16/16 ORDER # VISITS AND/OR THROUGH DATE: New continuation orders as of 04/04/16 2-3 x 4-6 wks PLAN: Progress Exercises
--- NOTE | 2016-04-15 12:08 | RS.OPPTDN ---
Subjective Date of Note: 04/15/16 Visit #: 23 Date of Evaluation: 02/23/16 Payer Source: MEDICARE Treatment Diagnosis: Right reverse total shoulder replacement Current Subjective/complaints:: Patient offers no new c/o's. She continues with HEP often to increase mobility. She says she has driven yesterday and has some difficulty because she must leave her R hand lower on the steering wheel ( at the bottom). *Precautions: Please follow protocol in pt's chart. Pain Assessment - Pain Description Pain Location: R shoulder and upper arm, under the arm and at the shoulderblade. Current Pain Intensity: stiffness/ache intermittently - Heat/Cryotherapy Treatment: Hot Pack (20 mins to the R scapula and R shoulder and forearm with elbow in extension) Interventions - Exercise/Activities/Manual Therapy Exercises/Activities: Progressive stretching with PROM/AAROM of the shoulder for flex/ext, abd/add, short range IR/ER. Also, continued stretching for the elbow to improve elbow extension. Manual isometrics for flex/ext, IR/ER 2x5. Active shoulder flexion 3x5 reps with further passive after end range actively. Active reaching in supine 3/5. We lessened the dumbell from 2 to 1# dumbell for wig dresser and wrist ext/flexion and elbow sup/pron 2 x 10 related to patient request. 2# dumbell for stretching to elbow extension and as for supination. Sitting: Passive cervical SB and rotation stretching to the L, 1 # therapy stick for bilateral shoulder flexion, 1# therapy stick for abd. Shoulder shrugs/scap adduction, AA shoulder flexion and then active. Standing: holding 3# dumbell for elbow extension. Total minutes of Exercise: 35 Manual Therapy: NA HOME EXERCISE PROGRAM: Patient to follow previous exerciss per MD protocol. She was instructed to allow her elbow to hang by her side and to use the RUE as she was able throughout the day. She verbalized understanding. - Charges Total Direct Minutes: 35 Total Treatment Time: 50 Procedures billed for this date of service:: talon, jorje Assessment: Patient has continued tenderness to the R scapula during assisted flexion in sitting to improve shoulder function. Patient progressing with elbow extension and with passive shoulder flexion. Patient Education: Education of diagnosis, Body/Joint mechanics, Home Exercise Program, Home Safety, Activity Modification, Education of Plan of Care Patient demonstrates compliance with HEP?: Yes Short Term Goals Goal #1: Right shoulder flex 100 degrees AAROM Goal to be met by: 04/06/16 (75%) Progress towards Goal:: Progressing Goal #2: Right shoulder strength 4/5 in all planes. Goal to be met by: 04/06/16 Progress towards Goal:: Progressing Goal #3: Right elbow extension -5 degrees. Goal to be met by: 04/06/16 Progress towards Goal:: Met Goal #4: Patient independent in beginning HEP. Goal to be met by: 03/11/16 Progress towards Goal:: Met Senior Living Goals Goal #1: Right shoulder AROM WFL in all planes. Goal to be met by: 05/16/16 Progress towards goal: Progressing Goal #2: Right elbow extension 0 degrees. Goal to be met by: 05/16/16 Progress towards goal: Progressing Goal #3: Right shoulder strength 4 - 4+/5. Goal to be met by: 05/16/16 Goal #4: Independent in advanced HEP. Goal to be met by: 05/16/16 Plan PLAN OF CARE EXPIRES ON:: 05/16/16 ORDER # VISITS AND/OR THROUGH DATE: New continuation orders as of 04/04/16 2-3 x 4-6 wks PLAN: Progress Exercises
--- NOTE | 2016-04-20 08:43 | RS.OPPTDN ---
Subjective Date of Note: 04/19/16 Visit #: 24 Date of Evaluation: 02/23/16 Payer Source: MEDICARE Treatment Diagnosis: Right reverse total shoulder replacement Current Subjective/complaints:: Patient says she has been stiff today and does not know if it is weather related. She says she keeps exercising her arm at home. *Precautions: Please follow protocol in pt's chart. Pain Assessment - Pain Description Pain Location: R shoulder and upper arm, under the arm and at the shoulderblade. Current Pain Intensity: stiffness/ache intermittently - Treatment Patient Position: Supine - Heat/Cryotherapy Treatment: Hot Pack (R shoulder/scapula in sitting x 15) Interventions - Exercise/Activities/Manual Therapy Exercises/Activities: Progressive stretching with PROM/AAROM of the shoulder for flex/ext, abd/add, short range IR/ER. Also, continued stretching for the elbow to improve elbow extension. Manual isometrics for flex/ext, IR/ER 2x5. Active shoulder flexion 3x5 reps with further passive after end range actively. Active reaching in supine 3/5. We lessened the dumbell from 2 to 1# dumbell for dental appliance repairer and wrist ext/flexion and elbow sup/pron 2 x 10 related to patient request. 2# dumbell for stretching to elbow extension and as for supination. Sitting: Passive cervical SB and rotation stretching to the L, 1 # therapy stick for bilateral shoulder flexion, 1# therapy stick for abd. Shoulder shrugs/scap adduction, AA shoulder flexion and then active. Standing: holding 3# dumbell for elbow extension. Total minutes of Exercise: 35 Manual Therapy: NA HOME EXERCISE PROGRAM: Patient to follow previous exerciss per MD protocol. She was instructed to allow her elbow to hang by her side and to use the RUE as she was able throughout the day. She verbalized understanding. - Charges Total Direct Minutes: 35 Total Treatment Time: 50 Procedures billed for this date of service:: hp, ex2 Assessment: Patient demonstrates less compensation from the R scapula with active shoulder flexion. Increased Active flexion and reaching in supine. Patient Education: Education of diagnosis, Body/Joint mechanics, Home Exercise Program, Home Safety, Activity Modification, Education of Plan of Care Patient demonstrates compliance with HEP?: Yes Short Term Goals Goal #1: Right shoulder flex 100 degrees AAROM Goal to be met by: 04/06/16 (75%) Progress towards Goal:: Progressing Goal #2: Right shoulder strength 4/5 in all planes. Goal to be met by: 04/06/16 Progress towards Goal:: Progressing Goal #3: Right elbow extension -5 degrees. Goal to be met by: 04/06/16 Progress towards Goal:: Met Goal #4: Patient independent in beginning HEP. Goal to be met by: 03/11/16 Progress towards Goal:: Met Oiler And Greaser Goals Goal #1: Right shoulder AROM WFL in all planes. Goal to be met by: 05/16/16 Progress towards goal: Progressing Goal #2: Right elbow extension 0 degrees. Goal to be met by: 05/16/16 Progress towards goal: Progressing Goal #3: Right shoulder strength 4 - 4+/5. Goal to be met by: 05/16/16 Progress towards goal: Progressing Goal #4: Independent in advanced HEP. Goal to be met by: 05/16/16 Plan PLAN OF CARE EXPIRES ON:: 05/16/16 ORDER # VISITS AND/OR THROUGH DATE: New continuation orders as of 04/04/16 2-3 x 4-6 wks PLAN: Progress Exercises
--- NOTE | 2016-04-20 11:21 | RS.OPPTDN ---
Subjective Date of Note: 04/20/16 Visit #: 25 Date of Evaluation: 02/23/16 Payer Source: MEDICARE Treatment Diagnosis: Right reverse total shoulder replacement Current Subjective/complaints:: Patient says she feels more mobile today. Reports improved sleep, lasting all night last night. *Precautions: Please follow protocol in pt's chart. Pain Assessment - Pain Description Pain Location: R shoulder and upper arm, under the arm and at the shoulderblade. Current Pain Intensity: stiffness/ache intermittently - Heat/Cryotherapy Treatment: Hot Pack (to R scapula and along the shoulder/forearm sitting x 20) Interventions - Exercise/Activities/Manual Therapy Exercises/Activities: Progressive stretching with PROM/AAROM of the shoulder for flex/ext, abd/add, short range IR/ER. Also, continued stretching for the elbow to improve elbow extension. 1# wand for bilateral shoulder flexion with slight overpressure by SAND CAR WORKER at end range and press ups 3x5. Manual isometrics for flex/ext, IR/ER 2x5. Active shoulder flexion 3x5 reps with further passive after end range actively. Active reaching in supine 3/5. 1# dumbell for learning center instructor and wrist ext/flexion and elbow sup/pron 2 x 10. 2# dumbell for stretching to elbow extension and as for supination. Sittin# therapy stick for bilateral shoulder flexion, 1# therapy stick for abd. Shoulder shrugs/scap adduction, AA shoulder flexion and then active with SAND CAR WORKER overpressure at end range. Standing: holding 3# dumbell for elbow extension. Yellow tband for scap retraction. Assistance with proper shoulder girdle motion with active flexion. Total minutes of Exercise: 36 Manual Therapy: NA HOME EXERCISE PROGRAM: Patient to follow previous exerciss per MD protocol. She was instructed to allow her elbow to hang by her side and to use the RUE as she was able throughout the day. She verbalized understanding. - Charges Total Direct Minutes: 36 Total Treatment Time: 51 Procedures billed for this date of service:: hp, ex2 Assessment: Patient demo less compensation from scapula with active flexion and does show increased AA flexion in supine to 100 degrees today in supine. Patient Education: Education of diagnosis, Body/Joint mechanics, Home Exercise Program, Home Safety, Activity Modification, Education of Plan of Care Patient demonstrates compliance with HEP?: Yes Short Term Goals Goal #1: Right shoulder flex 100 degrees AAROM Goal to be met by: 04/06/16 Progress towards Goal:: Met Goal #2: Right shoulder strength 4/5 in all planes. Goal to be met by: 04/06/16 Progress towards Goal:: Progressing Goal #3: Right elbow extension -5 degrees. Goal to be met by: 04/06/16 Progress towards Goal:: Met Goal #4: Patient independent in beginning HEP. Goal to be met by: 03/11/16 Progress towards Goal:: Met Stream Control Officer Goals Goal #1: Right shoulder AROM WFL in all planes. Goal to be met by: 05/16/16 Progress towards goal: Progressing Goal #2: Right elbow extension 0 degrees. Goal to be met by: 05/16/16 Progress towards goal: Progressing Goal #3: Right shoulder strength 4 - 4+/5. Goal to be met by: 05/16/16 Progress towards goal: Progressing Goal #4: Independent in advanced HEP. Goal to be met by: 05/16/16 Plan PLAN OF CARE EXPIRES ON:: 05/16/16 ORDER # VISITS AND/OR THROUGH DATE: New continuation orders as of 04/04/16 2-3 x 4-6 wks PLAN: Progress Exercises
--- NOTE | 2016-04-22 16:09 | RS.OPPTDN ---
Subjective Date of Note: 04/22/16 Visit #: 27 Date of Evaluation: 02/23/16 Payer Source: MEDICARE Treatment Diagnosis: Right reverse total shoulder replacement Current Subjective/complaints:: Patient says that she is able to drive better, pull the refrigerator door open, and push out the car door better. States she does not go back to her MD until June so she would like to continue PT a little longer. *Precautions: Please follow protocol in pt's chart. Pain Assessment - Pain Description Pain Location: R shoulder and upper arm, under the arm and at the shoulderblade. Current Pain Intensity: stiffness/ache intermittently - Heat/Cryotherapy Treatment: Hot Pack (15 mins to the R scapula and shoulder/forearm in extension sitting) Interventions - Exercise/Activities/Manual Therapy Exercises/Activities: Progressive stretching with PROM/AAROM of the shoulder for flex/ext, abd/add, short range IR/ER. Also, continued stretching for the elbow to improve elbow extension. 1# wand for bilateral shoulder flexion with slight overpressure by NOVELTY PRINTING MACHINE OPERATOR at end range and press ups 3x5. Manual isometrics for flex/ext, IR/ER 2x5. Active shoulder flexion 3x5 reps with further passive after end range actively. Active reaching in supine 3/5. 1# dumbell for medical management trainer and wrist ext/flexion and elbow sup/pron 2 x 10. Sittin# therapy stick for bilateral shoulder flexion, 1# therapy stick for abd. Shoulder shrugs/scap adduction, AA shoulder flexion and then active with NOVELTY PRINTING MACHINE OPERATOR overpressure at end range. Standing: holding 3# dumbell for elbow extension. Progressed to red tband for scap retraction. Assistance with proper shoulder girdle motion with active flexion. Standin# dumbell for static elbow extension stretch x 2 mins. Total minutes of Exercise: 35 Manual Therapy: NA HOME EXERCISE PROGRAM: Patient to follow previous exerciss per MD protocol. She was instructed to allow her elbow to hang by her side and to use the RUE as she was able throughout the day. She verbalized understanding. - Charges Total Direct Minutes: 35 Total Treatment Time: 50 Procedures billed for this date of service:: hp, ex2 Assessment: Improved flexibility passively and actively with more control with wand exercises. Improved resistance provided by patient during isometrics all directions. Patient Education: Education of diagnosis, Body/Joint mechanics, Home Exercise Program, Home Safety, Activity Modification, Education of Plan of Care Patient demonstrates compliance with HEP?: Yes Short Term Goals Goal #1: Right shoulder flex 100 degrees AAROM Goal to be met by: 04/06/16 Progress towards Goal:: Met Goal #2: Right shoulder strength 4/5 in all planes. Goal to be met by: 04/06/16 Progress towards Goal:: Progressing Goal #3: Right elbow extension -5 degrees. Goal to be met by: 04/06/16 Progress towards Goal:: Met Goal #4: Patient independent in beginning HEP. Goal to be met by: 03/11/16 Progress towards Goal:: Met Half-Way Goals Goal #1: Right shoulder AROM WFL in all planes. Goal to be met by: 05/16/16 Progress towards goal: Progressing Goal #2: Right elbow extension 0 degrees. Goal to be met by: 05/16/16 Progress towards goal: Progressing Goal #3: Right shoulder strength 4 - 4+/5. Goal to be met by: 05/16/16 Progress towards goal: Progressing Goal #4: Independent in advanced HEP. Goal to be met by: 05/16/16 Plan PLAN OF CARE EXPIRES ON:: 05/16/16 ORDER # VISITS AND/OR THROUGH DATE: New continuation orders as of 04/04/16 2-3 x 4-6 wks PLAN: Progress Exercises
--- NOTE | 2016-04-26 09:40 | RS.OPPTDN ---
Subjective Date of Note: 04/26/16 Visit #: 27 Date of Evaluation: 02/23/16 Payer Source: MEDICARE Treatment Diagnosis: Right reverse total shoulder replacement Current Subjective/complaints:: Patient says that she was achey Monday sitting at [employer]. She says she drove over the weekend with some soreness causing her to have to lower the R arm down several times. *Precautions: Please follow protocol in pt's chart. Pain Assessment - Pain Description Pain Location: R shoulder and upper arm, under the arm and at the shoulderblade. Current Pain Intensity: stiffness/ache intermittently - Heat/Cryotherapy Treatment: Hot Pack (15 mins to the R scapula and shoulder/forearm sitting) Interventions - Exercise/Activities/Manual Therapy Exercises/Activities: Progressive stretching with PROM/AAROM of the shoulder for flex/ext, abd/add, short range IR/ER. Also, continued stretching for the elbow to improve elbow extension. 1 1/2# wand for bilateral shoulder flexion and press ups with weight on the R side 3/5. Manual isometrics for flex/ext, IR/ ER 2x5. Active shoulder flexion 3x5 reps with further passive after end range actively. Active reaching in supine 3/5. 1# dumbell for commercial manager and wrist ext/flexion and elbow sup/pron 2 x 10. Sittin# therapy stick for bilateral shoulder flexion, 1# therapy stick for abd. Shoulder shrugs/scap adduction, AA shoulder flexion and then active with GASOLINE FINISHER overpressure at end range. Standing: holding 3# dumbell for elbow extension. Progressed to red tband for scap retraction. Assistance with proper shoulder girdle motion with active flexion. Total minutes of Exercise: 30 Manual Therapy: NA HOME EXERCISE PROGRAM: Patient to follow previous exerciss per MD protocol. She was instructed to allow her elbow to hang by her side and to use the RUE as she was able throughout the day. She verbalized understanding. - Charges Total Direct Minutes: 30 Total Treatment Time: 45 Procedures billed for this date of service:: hp, ex2 Assessment: Patient demo continued improvement with Passive shoulder flexion and abd in scaption plane. She experiences intermittent ache, but is able to perform more functional activities in the past 1-2 weeks. Patient Education: Education of diagnosis, Body/Joint mechanics, Home Exercise Program, Home Safety, Activity Modification, Education of Plan of Care Patient demonstrates compliance with HEP?: Yes Short Term Goals Goal #1: Right shoulder flex 100 degrees AAROM Goal to be met by: 04/06/16 Progress towards Goal:: Met Goal #2: Right shoulder strength 4/5 in all planes. Goal to be met by: 04/06/16 Progress towards Goal:: Progressing Goal #3: Right elbow extension -5 degrees. Goal to be met by: 04/06/16 Progress towards Goal:: Met Goal #4: Patient independent in beginning HEP. Goal to be met by: 03/11/16 Progress towards Goal:: Met Production Corrugator Goals Goal #1: Right shoulder AROM WFL in all planes. Goal to be met by: 05/16/16 Progress towards goal: Progressing Goal #2: Right elbow extension 0 degrees. Goal to be met by: 05/16/16 Progress towards goal: Progressing Goal #3: Right shoulder strength 4 - 4+/5. Goal to be met by: 05/16/16 Progress towards goal: Progressing Goal #4: Independent in advanced HEP. Goal to be met by: 05/16/16 Plan PLAN OF CARE EXPIRES ON:: 05/16/16 ORDER # VISITS AND/OR THROUGH DATE: New continuation orders as of 04/04/16 2-3 x 4-6 wks PLAN: Progress Exercises
--- NOTE | 2016-04-29 16:43 | RS.OPPTDN ---
Subjective Date of Note: 04/29/16 Visit #: 28 Date of Evaluation: 02/23/16 Payer Source: MEDICARE Treatment Diagnosis: Right reverse total shoulder replacement Current Subjective/complaints:: Patient reports right shoulder has been sore the last few days. She feels it has to do with the weather change. States she cannot get the right hand up to style her hair. *Precautions: Please follow protocol in pt's chart. Pain Assessment - Pain Description Pain Location: R shoulder and upper arm, under the arm and at the shoulderblade. Current Pain Intensity: stiffness/ache intermittently - Heat/Cryotherapy Treatment: Hot Pack (X 15 mins to right scapula, shoulder, elbow) Interventions - Exercise/Activities/Manual Therapy Exercises/Activities: Progressive stretching with PROM/AAROM of the shoulder for flex/ext, abd/add, short range IR/ER. Also, continued stretching for the elbow to improve elbow extension. 1 1/2# wand for bilateral shoulder flexion and press ups with weight on the R side 3/5. Manual isometrics for flex/ext, IR/ ER 2x5. Active shoulder flexion 3x5 reps with further passive after end range actively. Active reaching in supine 3/5. 1# dumbell for meat carrier and wrist ext/flexion and elbow sup/pron 2 x 10. Sittin# therapy stick for bilateral shoulder flexion, 1# therapy stick for abd. Shoulder shrugs/scap adduction, AA shoulder flexion and then active with SENIOR MEDICAL WRITER overpressure at end range. Progressed to red tband for scap retraction. Assistance with proper shoulder girdle motion with active flexion. Patient instructed in self stretching in door threshold for ER. Total minutes of Exercise: X 37 mins Manual Therapy: NA HOME EXERCISE PROGRAM: She was instructed to allow her elbow to hang by her side and to use the RUE as she was able throughout the day. She verbalized understanding. self stretching into ER - Objective Findings Observations,measurements,etc.: Pt demonstrates right shoulder ER to 40 degrees today. - Charges Total Direct Minutes: 37 mins Total Treatment Time: 52 mins Procedures billed for this date of service:: hp, Ex2 Assessment: Patient with marked limitation of shoulder ER. Reports difficulty washing and styling her hair using the right UE because of limited movement. She demonstrates the need for continued stretching and activities to gain further joint mobility to increase her level of function. Patient Education: Education of diagnosis, Body/Joint mechanics, Home Exercise Program Patient demonstrates compliance with HEP?: Yes Short Term Goals Goal #1: Right shoulder flex 100 degrees AAROM Goal to be met by: 04/06/16 Progress towards Goal:: Met Goal #2: Right shoulder strength 4/5 in all planes. Goal to be met by: 04/06/16 Progress towards Goal:: Progressing Goal #3: Right elbow extension -5 degrees. Goal to be met by: 04/06/16 Progress towards Goal:: Met Goal #4: Patient independent in beginning HEP. Goal to be met by: 03/11/16 Progress towards Goal:: Met Garden Consultant Goals Goal #1: Right shoulder AROM WFL in all planes. Goal to be met by: 05/16/16 Progress towards goal: Progressing Goal #2: Right elbow extension 0 degrees. Goal to be met by: 05/16/16 Progress towards goal: Progressing Goal #3: Right shoulder strength 4 - 4+/5. Goal to be met by: 05/16/16 Progress towards goal: Progressing Goal #4: Independent in advanced HEP. Goal to be met by: 05/16/16 Plan PLAN OF CARE EXPIRES ON:: 05/16/16 ORDER # VISITS AND/OR THROUGH DATE: 05/16/16 PLAN: Progress Exercises
--- NOTE | 2016-05-20 09:00 | RS.OPPTDN ---
Subjective Date of Note: 05/04/16 Visit #: 29 Date of Evaluation: 02/23/16 Payer Source: MEDICARE Treatment Diagnosis: Right reverse total shoulder replacement Current Subjective/complaints:: Patient says she continues to see slow changes with motion, but definitely reports improved mobility. *Precautions: Please follow protocol in pt's chart. Pain Assessment - Pain Description Pain Location: R shoulder and upper arm, under the arm and at the shoulderblade. Current Pain Intensity: stiffness/ache intermittently - Heat/Cryotherapy Treatment: Hot Pack (R shoulder and scapula x 20 mins in sitting) Interventions - Exercise/Activities/Manual Therapy Exercises/Activities: Progressive stretching with PROM/AAROM of the shoulder for flex/ext, abd/add, short range IR/ER. Also, continued stretching for the elbow to improve elbow extension. 1 1/2# wand for bilateral shoulder flexion and press ups with weight on the R side 3/5. Manual isometrics for flex/ext, IR/ ER 2x5. Active shoulder flexion 3x5 reps with further passive after end range actively. Active reaching in supine 3/5. 1# dumbell for high school library media specialist and wrist ext/flexion and elbow sup/pron 2 x 10. Sittin# therapy stick for bilateral shoulder flexion, 1# therapy stick for abd. Shoulder shrugs/scap adduction, AA shoulder flexion and then active with HAND SPRAYER overpressure at end range. Progressed to red tband for scap retraction. Assistance with proper shoulder girdle motion with active flexion. Patient instructed in self stretching in door threshold for ER. Total minutes of Exercise: 35 Manual Therapy: NA HOME EXERCISE PROGRAM: She was instructed to allow her elbow to hang by her side and to use the RUE as she was able throughout the day. She verbalized understanding. self stretching into ER - Charges Total Direct Minutes: 35 Total Treatment Time: 55 Procedures billed for this date of service:: hp, ex2 Patient Education: Education of diagnosis, Body/Joint mechanics, Home Exercise Program, Home Safety, Activity Modification, Education of Plan of Care Patient demonstrates compliance with HEP?: Yes Short Term Goals Goal #1: Right shoulder flex 100 degrees AAROM Goal to be met by: 04/06/16 Progress towards Goal:: Met Goal #2: Right shoulder strength 4/5 in all planes. Goal to be met by: 04/06/16 Progress towards Goal:: Progressing Goal #3: Right elbow extension -5 degrees. Goal to be met by: 04/06/16 Progress towards Goal:: Met Goal #4: Patient independent in beginning HEP. Goal to be met by: 03/11/16 Progress towards Goal:: Met Group Home Goals Goal #1: Right shoulder AROM WFL in all planes. Goal to be met by: 05/16/16 Progress towards goal: Progressing Goal #2: Right elbow extension 0 degrees. Goal to be met by: 05/16/16 Progress towards goal: Progressing Goal #3: Right shoulder strength 4 - 4+/5. Goal to be met by: 05/16/16 Progress towards goal: Progressing Goal #4: Independent in advanced HEP. Goal to be met by: 05/16/16 Plan PLAN OF CARE EXPIRES ON:: 05/16/16 ORDER # VISITS AND/OR THROUGH DATE: 05/16/16 PLAN: Progress Exercises
== END 2016-05-03 ==
PROVIDERS: ATTEND Orthopaedic Surgery
DX: S42.291A Other displaced fracture of upper end of right humerus, initial encounter for closed fracture (principal); M25.511 Pain in right shoulder

== ENCOUNTER 2016-05-06 10:00 | Outpatient (RCR) ==
[2015-12-28 02:20] VITALS: BMI 21.6
--- NOTE | 2016-05-06 13:52 | RS.OPPTDN ---
Subjective Date of Note: 05/06/16 Visit #: 30 Date of Evaluation: 02/23/16 Payer Source: MEDICARE Treatment Diagnosis: Right reverse total shoulder replacement Current Subjective/complaints:: Patient says she continues to work her arm several times daily, being conscientious not to hold her arm at her side. She says it is still hard to fix her hair, but has seen many small improvements with ADLs. She is driving, but usually has to allow her R hand to be in her lap or at the bottom of the steering wheel. *Precautions: Please follow protocol in pt's chart. Pain Assessment - Pain Description Pain Location: R shoulder and upper arm, under the arm and at the shoulderblade. Current Pain Intensity: stiffness/ache intermittently - Heat/Cryotherapy Treatment: Hot Pack (15 mins to the R shoulder and scapula/forearm) Interventions - Exercise/Activities/Manual Therapy Exercises/Activities: Progressive stretching with PROM/AAROM of the shoulder for flex/ext, abd/add, IR/ER. 1 1/2# wand for bilateral shoulder flexion and press ups with weight on the R side 3/5. Manual isometrics for flex/ext, IR/ ER 2x5. Active shoulder flexion 3x5 reps with further passive after end range actively. Active reaching in supine 3/5. Progressed to 2# dumbell for mushroom sorter grader and wrist ext/flexion and elbow sup/pron 2 x 10. Sittin# therapy stick for bilateral shoulder flexion, 1# therapy stick for abd. Shoulder shrugs/scap adduction, AA shoulder flexion and then active with HAIR BLENDER overpressure at end range. Red tband for scap retraction. Assistance with proper shoulder girdle motion with active flexion. Finished with finger ladder x 3 for flexion. Total minutes of Exercise: 35 Manual Therapy: NA HOME EXERCISE PROGRAM: She was instructed to allow her elbow to hang by her side and to use the RUE as she was able throughout the day. She verbalized understanding. self stretching into ER - Objective Findings Observations,measurements,etc.: UE Functional Score 55/80 or 31% impairment, reaching her goal of CJ - Charges Total Direct Minutes: 35 Total Treatment Time: 50 Procedures billed for this date of service:: hp, ex2 Assessment: Patient demonstrates increased passive shoulder flexion to ~115 degrees today, -1 to 2 for elbow extension (but is 0 with slight overpressure), abd in scaption plane ~ 110. Actively, mobility is slowly improving allowing for increased ability to perform ADLs (~90 degrees on average). Patient is pleased with progress at this point, however, she is going to also continue working on exercises at home. Pain level remains mild and no pain meds have been taken in quite some time. Resistance with isometrics for shoulder and elbow has improved greatly from barely present and shaky to 4/5. Patient Education: Education of diagnosis, Body/Joint mechanics, Home Exercise Program, Home Safety, Activity Modification, Education of Plan of Care Patient demonstrates compliance with HEP?: Yes Short Term Goals Goal #1: Right shoulder flex 100 degrees AAROM Goal to be met by: 04/06/16 Progress towards Goal:: Met Goal #2: Right shoulder strength 4/5 in all planes. Goal to be met by: 04/06/16 Progress towards Goal:: Met Goal #3: Right elbow extension -5 degrees. Goal to be met by: 04/06/16 Progress towards Goal:: Met Goal #4: Patient independent in beginning HEP. Goal to be met by: 03/11/16 Progress towards Goal:: Met Group Home Goals Goal #1: Right shoulder AROM WFL in all planes. Goal to be met by: 05/16/16 Progress towards goal: Partially Met Goal #2: Right elbow extension 0 degrees. Goal to be met by: 05/16/16 Progress towards goal: Partially Met Comments: patient demo -1 to -2, but is 0 with exercise Goal #3: Right shoulder strength 4 - 4+/5. Goal to be met by: 05/16/16 Progress towards goal: Progressing Goal #4: Independent in advanced HEP. Goal to be met by: 05/16/16 Plan PLAN OF CARE EXPIRES ON:: 05/16/16 ORDER # VISITS AND/OR THROUGH DATE: 05/16/16 PLAN: Plan for Discharge
--- NOTE | 2016-05-06 13:56 | RS.OPPTDN ---
Subjective Date of Note: 05/04/16 Visit #: 29 Date of Evaluation: 02/23/16 Payer Source: MEDICARE Treatment Diagnosis: Right reverse total shoulder replacement Current Subjective/complaints:: Patient says she continues to improve with pain level and kayden to more exercise. She says she is able to extend her elbow fully. *Precautions: Please follow protocol in pt's chart. Pain Assessment - Pain Description Pain Location: R shoulder and upper arm, under the arm and at the shoulderblade. Current Pain Intensity: stiffness/ache intermittently - Heat/Cryotherapy Treatment: Hot Pack (R scapula and shoulder/forearm sitting x 20 mins) Interventions - Exercise/Activities/Manual Therapy Exercises/Activities: Progressive stretching with PROM/AAROM of the shoulder for flex/ext, abd/add, IR/ER. Also, continued stretching for the elbow to improve elbow extension. 1 1/2# wand for bilateral shoulder flexion and press ups with weight on the R side 3/5. Manual isometrics for flex/ext, IR/ER 2x5. Active shoulder flexion 3x5 reps with further passive after end range actively. Active reaching in supine 3/5. 2# dumbell for mortuary technician and wrist ext/ flexion and elbow sup/pron 2 x 10. Sittin# therapy stick for bilateral shoulder flexion, 1# therapy stick for abd. Shoulder shrugs/scap adduction, AA shoulder flexion and then active with ASSESSMENT NURSE PRACTITIONER overpressure at end range. Progressed to red tband for scap retraction. Assistance with proper shoulder girdle motion with active flexion. Total minutes of Exercise: 35 Manual Therapy: NA HOME EXERCISE PROGRAM: She was instructed to allow her elbow to hang by her side and to use the RUE as she was able throughout the day. She verbalized understanding. self stretching into ER - Charges Total Direct Minutes: 35 Total Treatment Time: 55 Procedures billed for this date of service:: hp, ex2 Patient Education: Education of diagnosis, Body/Joint mechanics, Home Exercise Program, Home Safety, Activity Modification, Education of Plan of Care Patient demonstrates compliance with HEP?: Yes Short Term Goals Goal #1: Right shoulder flex 100 degrees AAROM Goal to be met by: 04/06/16 Progress towards Goal:: Met Goal #2: Right shoulder strength 4/5 in all planes. Goal to be met by: 04/06/16 Progress towards Goal:: Met Goal #3: Right elbow extension -5 degrees. Goal to be met by: 04/06/16 Progress towards Goal:: Met Goal #4: Patient independent in beginning HEP. Goal to be met by: 03/11/16 Progress towards Goal:: Met Dean Of Instruction Goals Goal #1: Right shoulder AROM WFL in all planes. Goal to be met by: 05/16/16 Progress towards goal: Progressing Goal #2: Right elbow extension 0 degrees. Goal to be met by: 05/16/16 Progress towards goal: Progressing Goal #3: Right shoulder strength 4 - 4+/5. Goal to be met by: 05/16/16 Progress towards goal: Progressing Goal #4: Independent in advanced HEP. Goal to be met by: 05/16/16 Plan PLAN OF CARE EXPIRES ON:: 05/16/16 ORDER # VISITS AND/OR THROUGH DATE: 05/16/16 PLAN: Progress Exercises (plan for one more session per order)
--- NOTE | 2016-05-10 13:00 | RS.OPPTDC ---
Date of Discharge: 05/06/16 Date of Evaluation: 02/23/16 Number of Visits: 30 Treatment Diagnosis: Right reverse total shoulder replacement Current Complaints/Gains: Patient reports less pain with mobility. She denies pain unless at endrange with PROM. She is not taking pain medication. Reports she is performing HEP often and also reports she is sleeping well. Pain Assessment - Pain Description Pain Location: R shoulder and upper arm, under the arm and at the shoulderblade. Current Pain Intensity: stiffness/ache intermittently Functional Outcome Measure UE Functional Index: 55 (31% disability) - G Codes & Severity Modifier G Codes & Modifier: Carrying, Moving and Handling Objects. Goal - CJ. D/C - CJ Source of G Code score: UE Functional Scale Interventions - Exercise/Activities/Manual Therapy Exercises/Activities: NA Manual Therapy: NA - Charges Total Direct Minutes: NA Total Treatment Time: NA Procedures billed for this date of service:: NA Assessment Assessment: All STG met and LTG progressing. Independent at CO with HEP to continue with her progress. Short Term Goals Goal #1: Right shoulder flex 100 degrees AAROM Goal to be met by: 04/06/16 Progress towards Goal:: Met Goal #2: Right shoulder strength 4/5 in all planes. Goal to be met by: 04/06/16 Progress towards Goal:: Met Goal #3: Right elbow extension -5 degrees. Goal to be met by: 04/06/16 Progress towards Goal:: Met Goal #4: Patient independent in beginning HEP. Goal to be met by: 03/11/16 Progress towards Goal:: Met Beta Tester Goals Goal #1: Right shoulder AROM WFL in all planes. Goal to be met by: 05/16/16 Progress towards goal: Progressing Goal #2: Right elbow extension 0 degrees. Goal to be met by: 05/16/16 Progress towards goal: Progressing Goal #3: Right shoulder strength 4 - 4+/5. Goal to be met by: 05/16/16 Progress towards goal: Progressing Goal #4: Independent in advanced HEP. Goal to be met by: 05/16/16 Plan Reason for Discharge:: No Further Skilled Therapy Indicated
== END 2016-06-03 ==
PROVIDERS: ATTEND Orthopaedic Surgery
DX: S42.291A Other displaced fracture of upper end of right humerus, initial encounter for closed fracture (principal); M25.511 Pain in right shoulder

== ENCOUNTER 2016-07-01 09:00 | Outpatient (RCR) ==
[2015-12-28 02:20] VITALS: BMI 21.6
--- NOTE | 2016-06-21 10:20 | RS.OPPTEV2 ---
Date of Note: 06/20/16 Visit #: 1 Date of Evaluation: 06/20/16 Payer Source: MEDICARE Treatment Diagnosis: Right shoulder weakness, right shoulder pain, dominant UE History of Condition/Mechanism of Injury:: Patient fell Dec 28, 2015 and sustained humeral fx which resulted in the need for a reverse TSR on the right. She underwent surgery on 01/14/16. She attended Outpatient PT for her shoulder February 2016 to May 2016. She had a delay following up with her surgeon and he wants her to continue therapy for strengthening. Prior Level of Function.....Patient was independent with: ADL's, Self Care, Work /Vocation, Caregiving, Ambulation/Mobility, Community Integration/Access Functional Limitations: Sleep, Self Care, ADL's, Reaching, Pushing, Pulling, Lifting, Carrying, Sitting, Community Access/Integration Current Subjective/complaints:: Patient reports weakness in her dominant UE. States the right UE has continued to be limited since surgery. Her surgeon wants her to continue with therapy for strengthening. She reports being unable to perform selfcare with the right UE that involves use of the arm above chest height. Also reports difficulty using the right UE for activities such as changing the bed, vacuuming, fixing her hair. Treatment Side (optional): Right Medical History Medical History: Arthritis, Cancer Surgical History: Hip Replacement, Cholecystectomy, Tonsillectomy Surgical History Comments:: Appendectomy & cataract surgery. Smoking Status: Never smoker Hx Home Medications: Pain medication (name not given) Patient's Goals: Her goal is to regain functional right shoulder AROM to perform selfcare and ADL's. Pain Assessment - Pain Description Pain Location: Right shoulder Current Pain Intensity: 5/10 Worst Pain Intensity: 8/10 Functional Outcome Measure UE Functional Index: 54 (54/80=32.5% impairment) - G Codes & Severity Modifier G Codes & Modifier: Carry current CK. Carry goal CI Source of G Code score: Patient scores herself 54/80, however she presents to be much more limited than 32.5% impairment. G Codes billed are based on her presentation in the department, which is at least 40-50% impaired (CK level). Observation - Observation Posture: Forward Head, Rounded Shoulders Handedness: Right Shoulder ROM: Left WFL's Shoulder Muscle Strength: Left WFL's - Right Shoulder ROM Right Shoulder Flexion: 65 (degrees AROM) Right Shoulder Abduction: 55 (degrees AROM) Right Shoulder Internal Rotation: 40 (degrees AROM) Right Shoulder External Rotation: 15 (degrees AROM) Right Shoulder ROM Limitations: Soft Tissue Tightness, Muscle Weakness, Pain Comments: PROM with patient in supine: Flexion 95 degrees, abduction 90-95 degrees, ER 45-50 degrees, IR 55-60 degrees. - Left Shoulder Strength Left Shoulder Flexion: 4- Good- Left Shoulder Extension: 4 Good Left Shoulder Abduction: 3+ Fair+ Left Shoulder Adduction: 4 Good Left Shoulder External Rotation: 3 Fair Left Shoulder Internal Rotation: 3+ Fair+ Comments: Pain reported with resisted abduction, IR, and ER. Palpation Comments:: Patient reports tenderness along the posterior aspect of the GH joint over the insertion of the Teres Minor. Sensation - Sensation Right Upper Extremity: Intact/Normal Left Upper Extremity: Intact/Normal Interventions - Exercise/Activities/Manual Therapy Exercises/Activities: Patient received stretching to the right shoulder into all directions. Performed contract-relax technique to aid stretching into flexion and ER. Performed isometrics in all directions. Patient reports discomfort with isometrics into ER and IR. Performs supine wand ex's for shoulder flexion. Instructed to perform wand in standing or sitting and also instructed in RTC series. Manual Therapy: NA HOME EXERCISE PROGRAM: Wand exercises into flexion and abduction in standing or sitting, RTC series in pendulum position. - Charges Total Direct Minutes: 55 mins Total Treatment Time: 55 mins Procedures billed for this date of service:: LIBORIO Santa Assessment Assessment: Patient presents to therapy 5 months after a Reverse TSA on her dominant arm. Her surgery was due to sustaining a humeral fracture. She was slowly gaining progress with ROM with therapy. She had a gap without therapy before returning to her doctor. Upon return to her surgeon, he ordered more therapy to increase strength in the right UE. She demonstrates limited Passive and Active ROM and exhibits potential to benefit from progressed skilled activities to help her regain functional use of the right UE to perform all selfcare and ADL's. Patient Education: Education of diagnosis, Body/Joint mechanics, Home Exercise Program, Education of Plan of Care Rehab Potential: Good Short Term Goals Goal #1: Right shoulder flexion 90 degrees AROM. Goal to be met by: 07/12/16 Goal #2: PROM right shoulder WFL's. Goal to be met by: 07/12/16 Goal #3: General strength of right shoulder 4/5 in available range. Goal to be met by: 07/12/16 Goal #4: Pt to demonstrate good postural awareness. Goal to be met by: 07/12/16 Senior Care Goals Goal #1: Pt knows HEP and to continue exercises to maintain functional level at D/C. Goal to be met by: 08/20/16 Goal #2: Score on UE functional scale improved to <19% impairment. Goal to be met by: 08/20/16 Goal #3: RUE AROM improved for patient to be able to style her hair. Goal to be met by: 08/20/16 Goal #4: Pt able to perform ADL's of cooking and housework with minimal difficulty. Goal to be met by: 08/20/16 Plan - Treatment to be Provided Procedures: Therapeutic Exercises, Therapeutic Activity, Manual Therapy, Massage , Splinting/Taping, Patient Education Modalities: Cryotherapy, Hot Packs - Treatment Plan Frequency: 3 X week Duration: 6 weeks ORDER # VISITS AND/OR THROUGH DATE: 08/20/16 - Treatment Code (1) Weakness of shoulder Comments: M62.81 (2) Shoulder stiffness Qualifiers: Laterality: right Qualified Description: Stiffness of shoulder joint, right Qualifier Code(s): (M25.611) Stiffness of right shoulder, not elsewhere classified (3) Aftercare following joint replacement surgery Qualifiers: Joint replacement surgery site: shoulder Laterality: right Qualified Description: Aftercare following right shoulder joint replacement surgery Qualifier Code(s): (Z47.1) Aftercare following joint replacement surgery, (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
--- NOTE | 2016-06-22 10:21 | RS.OPPTDN ---
Subjective Date of Note: 06/22/16 Visit #: 2 Date of Evaluation: 06/20/16 Payer Source: MEDICARE Treatment Diagnosis: Right shoulder weakness, right shoulder pain, dominant UE Current Subjective/complaints:: Patient says she did have soreness to the R shoulder following eval. She says she has gotten away from using heat at home with her exercises, but requests it today due to soreness with exercise. *Precautions: Please follow protocol in pt's chart. Pain Assessment - Pain Description Pain Location: Right shoulder Current Pain Intensity: 5/10 - Heat/Cryotherapy Treatment: Hot Pack (20 mins to the R shoulder in supine) Interventions - Exercise/Activities/Manual Therapy Exercises/Activities: Patient received stretching to the right shoulder into all directions. Performed contract-relax technique to aid stretching into flexion and ER. Performed isometrics in all directions of the R shoulder. 1# wand for bilateral shoulder flexion and then press ups x 10. Ended with shoulder pulleys x 3 mins. Total minutes of Exercise: 30 Manual Therapy: NA HOME EXERCISE PROGRAM: Wand exercises into flexion and abduction in standing or sitting, RTC series in pendulum position. - Charges Total Direct Minutes: 30 Total Treatment Time: 50 Procedures billed for this date of service:: hp, ex2 Assessment: Patient with soreness following therex on eval date. She grimaces with passive IR and with isometrics for IR/ER as well. All other kayden well with mild fatigue. Patient Education: Education of diagnosis, Body/Joint mechanics, Home Exercise Program, Home Safety, Activity Modification, Education of Plan of Care Patient demonstrates compliance with HEP?: Yes Short Term Goals Goal #1: Right shoulder flexion 90 degrees AROM. Goal to be met by: 07/12/16 Goal #2: PROM right shoulder WFL's. Goal to be met by: 07/12/16 Goal #3: General strength of right shoulder 4/5 in available range. Goal to be met by: 07/12/16 Goal #4: Pt to demonstrate good postural awareness. Goal to be met by: 07/12/16 Juvenile Officer Goals Goal #1: Pt knows HEP and to continue exercises to maintain functional level at D/C. Goal to be met by: 08/20/16 Goal #2: Score on UE functional scale improved to <19% impairment. Goal to be met by: 08/20/16 Goal #3: RUE AROM improved for patient to be able to style her hair. Goal to be met by: 08/20/16 Goal #4: Pt able to perform ADL's of cooking and housework with minimal difficulty. Goal to be met by: 08/20/16 Plan PLAN OF CARE EXPIRES ON:: 08/20/16 ORDER # VISITS AND/OR THROUGH DATE: 08/20/16 PLAN: Progress Exercises
--- NOTE | 2016-06-24 10:01 | RS.OPPTDN ---
Subjective Date of Note: 06/24/16 Date of Evaluation: 06/20/16 Payer Source: MEDICARE Treatment Diagnosis: Right shoulder weakness, right shoulder pain, dominant UE Current Subjective/complaints:: Patient requests to try therex without heat first. She says she has another appt after PT today. She says she has noticed shoulder aching due to rain, but used ice after her last session at home, which helped. *Precautions: Please follow protocol in pt's chart. Pain Assessment - Pain Description Pain Location: Right shoulder Pain Description: Aching Current Pain Intensity: 5/10 Interventions - Exercise/Activities/Manual Therapy Exercises/Activities: Began with shoulder pulleys x 5 mins. Patient received stretching to the right shoulder into all directions. Performed contract-relax technique to aid stretching into flexion and ER. Performed isometrics in all directions of the R shoulder. 1# wand for bilateral shoulder flexion and then press ups x 10. More emphasis placed on ROM today. Total minutes of Exercise: 40 Manual Therapy: NA HOME EXERCISE PROGRAM: Wand exercises into flexion and abduction in standing or sitting, RTC series in pendulum position. - Charges Total Direct Minutes: 40 Total Treatment Time: 40 Procedures billed for this date of service:: ex3 Assessment: Patient kayden all progressive stretching well today. She demo improved range with flexion and abd today with more softer end feel than previous bout of therapy. She also was able to apply more resistance with IR and shoulder flexion today than previous session. Patient Education: Education of diagnosis, Body/Joint mechanics, Home Exercise Program, Home Safety, Activity Modification, Education of Plan of Care Patient demonstrates compliance with HEP?: Yes Short Term Goals Goal #1: Right shoulder flexion 90 degrees AROM. Goal to be met by: 07/12/16 Progress towards Goal:: Progressing Goal #2: PROM right shoulder WFL's. Goal to be met by: 07/12/16 Progress towards Goal:: Progressing Goal #3: General strength of right shoulder 4/5 in available range. Goal to be met by: 07/12/16 Goal #4: Pt to demonstrate good postural awareness. Goal to be met by: 07/12/16 Track Superintendent Goals Goal #1: Pt knows HEP and to continue exercises to maintain functional level at D/C. Goal to be met by: 08/20/16 Goal #2: Score on UE functional scale improved to <19% impairment. Goal to be met by: 08/20/16 Goal #3: RUE AROM improved for patient to be able to style her hair. Goal to be met by: 08/20/16 Goal #4: Pt able to perform ADL's of cooking and housework with minimal difficulty. Goal to be met by: 08/20/16 Plan PLAN OF CARE EXPIRES ON:: 08/20/16 ORDER # VISITS AND/OR THROUGH DATE: 08/20/16 PLAN: Progress Exercises
--- NOTE | 2016-06-28 10:26 | RS.OPPTDN ---
Subjective Date of Note: 06/28/16 Visit #: 4 Date of Evaluation: 06/20/16 Payer Source: MEDICARE Treatment Diagnosis: Right shoulder weakness, right shoulder pain, dominant UE Current Subjective/complaints:: Patient reports no pain at rest currently ,has pain with active motion / repositioning the R UE.Patient requests the hot pack today. Pain Assessment - Pain Description Pain Location: Right shoulder Pain Description: Dull, Aching Current Pain Intensity: 5/10 - Heat/Cryotherapy Treatment: Hot Pack (20 mins. prior to exercises.) Interventions - Exercise/Activities/Manual Therapy Exercises/Activities: 30 mins. total ,beginning with shoulder pulleys,then supine PROM in all planes for shoulder scaption,elevation,IR/ER,abduction, followed by isometric abduction and elevation.3/10 each exercise today.Ended session with 10 each of shoulder shrugs,forward and backwards shoulder circles for scapular mobility. Total minutes of Exercise: 30 Manual Therapy: NA HOME EXERCISE PROGRAM: Wand exercises into flexion and abduction in standing or sitting, RTC series in pendulum position. - Charges Total Direct Minutes: 30 Total Treatment Time: 50 Procedures billed for this date of service:: hp,ex 2 Assessment: Patient has improved scapular mobility,has the most difficulty withactive motion above shoulder level.She demos. that she is able to elevate the R UE up and behind her head with assist of the L UE,but not able to do this with R UE only due to decreased deltoid strength.She is attentive to recommendations for the HEP,advised not to force IR or excessive extension due to the reverse shoulder procedure. Patient demonstrates compliance with HEP?: Yes Short Term Goals Goal #1: Right shoulder flexion 90 degrees AROM. Goal to be met by: 07/12/16 Progress towards Goal:: Progressing Goal #2: PROM right shoulder WFL's. Goal to be met by: 07/12/16 Progress towards Goal:: Progressing Goal #3: General strength of right shoulder 4/5 in available range. Goal to be met by: 07/12/16 Goal #4: Pt to demonstrate good postural awareness. Goal to be met by: 07/12/16 Progress towards Goal:: Progressing Group Home Goals Goal #1: Pt knows HEP and to continue exercises to maintain functional level at D/C. Goal to be met by: 08/20/16 Goal #2: Score on UE functional scale improved to <19% impairment. Goal to be met by: 08/20/16 Goal #3: RUE AROM improved for patient to be able to style her hair. Goal to be met by: 08/20/16 Goal #4: Pt able to perform ADL's of cooking and housework with minimal difficulty. Goal to be met by: 08/20/16 Plan PLAN OF CARE EXPIRES ON:: 08/20/16 ORDER # VISITS AND/OR THROUGH DATE: 08/20/16 PLAN: Continue Plan of Care
--- NOTE | 2016-06-30 11:17 | RS.OPPTDN ---
Subjective Date of Note: 06/30/16 Visit #: 5 Date of Evaluation: 06/20/16 Payer Source: MEDICARE Treatment Diagnosis: Right shoulder weakness, right shoulder pain, dominant UE Current Subjective/complaints:: Patient feels the last session helped,also used ice at home for pain relief.She does notice driving to today's appt. causes moderate pain. Pain Assessment - Pain Description Pain Location: Right shoulder Pain Description: Dull, Aching Current Pain Intensity: 0 at rest,elevates with active motion - Heat/Cryotherapy Treatment: Hot Pack (20 mins. prior to exercises) Interventions - Exercise/Activities/Manual Therapy Exercises/Activities: 30 mins. total ,beginning with shoulder pulleys,then supine PROM in all planes for shoulder scaption,elevation,IR/ER,abduction, followed by isometric abduction and elevation.3/10 each exercise today.Ended session with 10 each of shoulder shrugs,forward and backwards shoulder circles for scapular mobility. Total minutes of Exercise: 30 Manual Therapy: NA Total minutes of Manual Therapy: 0 HOME EXERCISE PROGRAM: Wand exercises into flexion and abduction in standing or sitting, RTC series in pendulum position. - Charges Total Direct Minutes: 30 Total Treatment Time: 50 Procedures billed for this date of service:: hp,ex 2 Assessment: Patient has slight improvement with eccentric control of shoulder elevation.He rpassive ER also improved today.She has good scapular motion present.We discussed energy conservation techniques when she is attempting AROM above shoulder height. Patient Education: Education of diagnosis, Body/Joint mechanics, Home Exercise Program, Home Safety, Activity Modification, Education of Plan of Care Patient demonstrates compliance with HEP?: Yes Short Term Goals Goal #1: Right shoulder flexion 90 degrees AROM. Goal to be met by: 07/12/16 Progress towards Goal:: Progressing Goal #2: PROM right shoulder WFL's. Goal to be met by: 07/12/16 Progress towards Goal:: Progressing Goal #3: General strength of right shoulder 4/5 in available range. Goal to be met by: 07/12/16 Goal #4: Pt to demonstrate good postural awareness. Goal to be met by: 07/12/16 Progress towards Goal:: Progressing Eligibility Worker Goals Goal #1: Pt knows HEP and to continue exercises to maintain functional level at D/C. Goal to be met by: 08/20/16 Progress towards goal: Progressing Goal #2: Score on UE functional scale improved to <19% impairment. Goal to be met by: 08/20/16 Goal #3: RUE AROM improved for patient to be able to style her hair. Goal to be met by: 08/20/16 Goal #4: Pt able to perform ADL's of cooking and housework with minimal difficulty. Goal to be met by: 08/20/16 Plan PLAN OF CARE EXPIRES ON:: 08/20/16 ORDER # VISITS AND/OR THROUGH DATE: 08/20/16 PLAN: Continue Plan of Care
--- NOTE | 2016-07-01 10:44 | RS.OPPTDN ---
Subjective Date of Note: 07/01/16 Visit #: 6 Date of Evaluation: 06/20/16 Payer Source: MEDICARE Treatment Diagnosis: Right shoulder weakness, right shoulder pain, dominant UE Current Subjective/complaints:: Reports using ice after yesterday's treatment, gives her significant relief.She is compliant to HEP. *Precautions: Please follow protocol in pt's chart. Pain Assessment - Pain Description Pain Location: Right shoulder Pain Description: Dull, Aching Current Pain Intensity: 0 at rest,elevates with active motion Other Comments regarding Pain:: 3-4/[address] - Heat/Cryotherapy Treatment: Hot Pack (20 mins. to R shoulder ,prior to exercises) Interventions - Exercise/Activities/Manual Therapy Exercises/Activities: 40 mins. total ,beginning with shoulder pulleys,then supine PROM in all planes for shoulder scaption,elevation,IR/ER,abduction, followed by isometric abduction and elevation.3/10 each exercise today. 10 each of shoulder shrugs,forward and backwards shoulder circles for scapular mobility.Ended with patient in L sidelying ,doing AAROM allplanes to assess scapular mobility. Total minutes of Exercise: 40 Manual Therapy: NA Total minutes of Manual Therapy: 0 HOME EXERCISE PROGRAM: Wand exercises into flexion and abduction in standing or sitting, RTC series in pendulum position. - Charges Total Direct Minutes: 40 Total Treatment Time: 60 Procedures billed for this date of service:: hp,ex 3 Assessment: Patient has improved passive motion ,but requires multiple reps. to increase her flexibility.She has good scapular mobility present ,is tender to palpate the inferior /lateral border of R scapula today.She is motivated to improve. Patient Education: Education of diagnosis, Body/Joint mechanics, Home Exercise Program, Home Safety, Activity Modification, Education of Plan of Care Patient demonstrates compliance with HEP?: Yes Short Term Goals Goal #1: Right shoulder flexion 90 degrees AROM. Goal to be met by: 07/12/16 Progress towards Goal:: Progressing Goal #2: PROM right shoulder WFL's. Goal to be met by: 07/12/16 Progress towards Goal:: Progressing Goal #3: General strength of right shoulder 4/5 in available range. Goal to be met by: 07/12/16 Progress towards Goal:: Progressing Goal #4: Pt to demonstrate good postural awareness. Goal to be met by: 07/12/16 Progress towards Goal:: Progressing Grain Operator Goals Goal #1: Pt knows HEP and to continue exercises to maintain functional level at D/C. Goal to be met by: 08/20/16 Progress towards goal: Progressing Goal #2: Score on UE functional scale improved to <19% impairment. Goal to be met by: 08/20/16 Goal #3: RUE AROM improved for patient to be able to style her hair. Goal to be met by: 08/20/16 Progress towards goal: No Change Goal #4: Pt able to perform ADL's of cooking and housework with minimal difficulty. Goal to be met by: 08/20/16 Plan PLAN OF CARE EXPIRES ON:: 08/20/16 ORDER # VISITS AND/OR THROUGH DATE: 08/20/16 PLAN: Progress Exercises
== END 2016-07-03 ==
PROVIDERS: ATTEND Orthopaedic Surgery
DX: S42.291D Other displaced fracture of upper end of right humerus, subsequent encounter for fracture with routine healing (principal)

== ENCOUNTER 2016-08-02 09:00 | Outpatient (RCR) ==
[2015-12-28 02:20] VITALS: BMI 21.6
--- NOTE | 2016-07-04 10:05 | RS.OPPTDN ---
Subjective Date of Note: 07/04/16 Visit #: 7 Date of Evaluation: 06/20/16 Payer Source: MEDICARE Treatment Diagnosis: Right shoulder weakness, right shoulder pain, dominant UE Current Subjective/complaints:: Patient reports the damp,cooler this morning is causing her to ache more.She feels she is tolerating driving better,less intense pain in the R shoulder. Pain Assessment - Pain Description Pain Location: Right shoulder Current Pain Intensity: 4/10 - Heat/Cryotherapy Treatment: Hot Pack (20 mins. prior to exercises.) Interventions - Exercise/Activities/Manual Therapy Exercises/Activities: 25 mins. total ,beginning with shoulder pulleys,then 1# wand for 3/15 chest press ,and 1/15 for overhead flexion.Ended with supine PROM in all planes for shoulder scaption,elevation,IR/ER,abduction,followed by isometric abduction and elevation.3/10 each exercise today. 10 each of shoulder shrugs,forward and backwards shoulder circles for scapular mobility. Total minutes of Exercise: 25 Manual Therapy: NA Total minutes of Manual Therapy: 0 HOME EXERCISE PROGRAM: Wand exercises into flexion and abduction in standing or sitting, RTC series in pendulum position. - Charges Total Direct Minutes: 25 Total Treatment Time: 45 Procedures billed for this date of service:: hp,ex 2 Assessment: Patient more guarded today ,due to increased aching.She has increased pain today with AROM ,but no loss of motion as compared to last session.She continues to be highly motivated to improve. Patient Education: Education of diagnosis, Body/Joint mechanics, Home Exercise Program, Home Safety, Activity Modification, Education of Plan of Care Patient demonstrates compliance with HEP?: Yes Short Term Goals Goal #1: Right shoulder flexion 90 degrees AROM. Goal to be met by: 07/12/16 Progress towards Goal:: Progressing Goal #2: PROM right shoulder WFL's. Goal to be met by: 07/12/16 Progress towards Goal:: Progressing Goal #3: General strength of right shoulder 4/5 in available range. Goal to be met by: 07/12/16 Progress towards Goal:: No Change Goal #4: Pt to demonstrate good postural awareness. Goal to be met by: 07/12/16 Progress towards Goal:: Progressing Floor Runner Goals Goal #1: Pt knows HEP and to continue exercises to maintain functional level at D/C. Goal to be met by: 08/20/16 Progress towards goal: Partially Met Goal #2: Score on UE functional scale improved to <19% impairment. Goal to be met by: 08/20/16 Goal #3: RUE AROM improved for patient to be able to style her hair. Goal to be met by: 08/20/16 (50%) Progress towards goal: Progressing Goal #4: Pt able to perform ADL's of cooking and housework with minimal difficulty. Goal to be met by: 08/20/16 Progress towards goal: Progressing Plan PLAN OF CARE EXPIRES ON:: 08/20/16 ORDER # VISITS AND/OR THROUGH DATE: 08/20/16 PLAN: Progress Exercises
--- NOTE | 2016-07-06 10:12 | RS.OPPTDN ---
Subjective Date of Note: 07/06/16 Visit #: 8 Date of Evaluation: 06/20/16 Payer Source: MEDICARE Treatment Diagnosis: Right shoulder weakness, right shoulder pain, dominant UE Current Subjective/complaints:: Patient reports the shoulder has felt better the last couple of days,did not have to use ice yesterday. Pain Assessment - Pain Description Pain Location: Right shoulder Pain Description: Dull, Aching Current Pain Intensity: 0 at rest - Heat/Cryotherapy Treatment: Hot Pack (20 mins. prior to exercises) Interventions - Exercise/Activities/Manual Therapy Exercises/Activities: 45 mins. total ,beginning with shoulder pulleys x 5 mins. , supine PROM in all planes for shoulder scaption,elevation,IR/ER,abduction, followed by isometric abduction and elevation.3/15 each exercise today. 10 each of shoulder shrugs,forward and backwards shoulder circles for scapular mobility.Multiple reps of faster passive motions,followed by manual distraction. Total minutes of Exercise: 45 Manual Therapy: NA Total minutes of Manual Therapy: 0 HOME EXERCISE PROGRAM: Wand exercises into flexion and abduction in standing or sitting, RTC series in pendulum position. - Charges Total Direct Minutes: 40 Total Treatment Time: 65 Procedures billed for this date of service:: hp,ex 3 Assessment: Patient able to reach up and to the base of her neck after session today,along with more elevation by finger walking up to the back of her head, with moderate discomfort reported.She also has improved ER after multiple reps. of stretches.She is compliant to HEP ,instructed to continue using ice at home after aggressive stretches. Patient Education: Body/Joint mechanics, Home Exercise Program, Home Safety, Activity Modification, Education of Plan of Care Patient demonstrates compliance with HEP?: Yes Short Term Goals Goal #1: Right shoulder flexion 90 degrees AROM. Goal to be met by: 07/12/16 (65 degrees active today) Progress towards Goal:: Progressing Goal #2: PROM right shoulder WFL's. Goal to be met by: 07/12/16 Progress towards Goal:: Progressing Goal #3: General strength of right shoulder 4/5 in available range. Goal to be met by: 07/12/16 Progress towards Goal:: Progressing Goal #4: Pt to demonstrate good postural awareness. Goal to be met by: 07/12/16 Progress towards Goal:: Progressing Uniform Maker Goals Goal #1: Pt knows HEP and to continue exercises to maintain functional level at D/C. Goal to be met by: 08/20/16 Progress towards goal: Partially Met Goal #2: Score on UE functional scale improved to <19% impairment. Goal to be met by: 08/20/16 Goal #3: RUE AROM improved for patient to be able to style her hair. Goal to be met by: 08/20/16 Progress towards goal: Progressing Goal #4: Pt able to perform ADL's of cooking and housework with minimal difficulty. Goal to be met by: 08/20/16 Progress towards goal: Progressing Plan PLAN OF CARE EXPIRES ON:: 08/20/16 ORDER # VISITS AND/OR THROUGH DATE: 08/20/16 PLAN: Progress Exercises
--- NOTE | 2016-07-08 15:03 | RS.OPPTDN ---
Subjective Date of Note: 07/08/16 Visit #: 9 Date of Evaluation: 06/20/16 Payer Source: MEDICARE Treatment Diagnosis: Right shoulder weakness, right shoulder pain, dominant UE Current Subjective/complaints:: Reports using ice after last session helped with her pain level.She reports it was less painful driving here today. Pain Assessment - Pain Description Pain Location: Right shoulder Pain Description: Dull, Aching Current Pain Intensity: 0 at rest - Heat/Cryotherapy Treatment: Hot Pack (20 mins. prior to exercises) Interventions - Exercise/Activities/Manual Therapy Exercises/Activities: 35 mins. total , supine PROM in all planes for shoulder scaption,elevation,IR/ER,abduction,followed by isometric abduction and elevation.3/15 each exercise today. 10 each of shoulder shrugs,forward and backwards shoulder circles for scapular mobility.Multiple reps of faster passive motions,followed by manual distraction. Total minutes of Exercise: 35 Manual Therapy: NA Total minutes of Manual Therapy: 0 HOME EXERCISE PROGRAM: Wand exercises into flexion and abduction in standing or sitting, RTC series in pendulum position. - Charges Total Direct Minutes: 35 Total Treatment Time: 55 Procedures billed for this date of service:: hp,ex 2 Assessment: Patient continues to have improved passive scaption today,less intense pain at end range of motion.She is guarded with IR/ER,as she reports intermittent sharp pain.She is compliant to HEP. Patient Education: Education of diagnosis, Body/Joint mechanics, Home Exercise Program, Home Safety, Activity Modification, Education of Plan of Care Patient demonstrates compliance with HEP?: Yes Short Term Goals Goal #1: Right shoulder flexion 90 degrees AROM. Goal to be met by: 07/12/16 Progress towards Goal:: Progressing Goal #2: PROM right shoulder WFL's. Goal to be met by: 07/12/16 Progress towards Goal:: Progressing Goal #3: General strength of right shoulder 4/5 in available range. Goal to be met by: 07/12/16 Progress towards Goal:: Progressing Goal #4: Pt to demonstrate good postural awareness. Goal to be met by: 07/12/16 Progress towards Goal:: Progressing Delimer Goals Goal #1: Pt knows HEP and to continue exercises to maintain functional level at D/C. Goal to be met by: 08/20/16 Progress towards goal: Partially Met Goal #2: Score on UE functional scale improved to <19% impairment. Goal to be met by: 08/20/16 Goal #3: RUE AROM improved for patient to be able to style her hair. Goal to be met by: 08/20/16 Progress towards goal: Progressing Goal #4: Pt able to perform ADL's of cooking and housework with minimal difficulty. Goal to be met by: 08/20/16 Progress towards goal: Progressing Plan PLAN OF CARE EXPIRES ON:: 08/20/16 ORDER # VISITS AND/OR THROUGH DATE: 08/20/16 PLAN: Continue Plan of Care
--- NOTE | 2016-07-12 10:21 | RS.OPPTDN ---
Subjective Date of Note: 07/12/16 Visit #: 10 Date of Evaluation: 06/20/16 Payer Source: MEDICARE Treatment Diagnosis: Right shoulder weakness, right shoulder pain, dominant UE Current Subjective/complaints:: Patient feels the therapy is helping,feels more flexible ,but the strength increase is slow.She is motivated to improve. Pain Assessment - Pain Description Pain Location: Right shoulder Pain Description: Dull, Aching Current Pain Intensity: 0 at rest ,varies with AROM - Heat/Cryotherapy Treatment: Hot Pack (20 mins. prior to exercises) Interventions - Exercise/Activities/Manual Therapy Exercises/Activities: 30 mins. total , supine PROM in all planes for shoulder scaption,elevation,IR/ER,abduction,followed by isometric abduction and elevation.3/15 each exercise today. 10 each of shoulder shrugs,forward and backwards shoulder circles for scapular mobility. Total minutes of Exercise: 30 Manual Therapy: NA Total minutes of Manual Therapy: 0 HOME EXERCISE PROGRAM: Wand exercises into flexion and abduction in standing or sitting, RTC series in pendulum position. - Charges Total Direct Minutes: 30 Total Treatment Time: 50 Procedures billed for this date of service:: hp,ex 2 Assessment: Patient has increased passive motion as compared to eval.She can benefit from continued passive stretches,and strengthening to improve her ability to do her daily tasks.She has difficulty maintaining overhead positions due to weakness.She is very compliant to all recommendations of the therapy staff. Patient Education: Education of diagnosis, Body/Joint mechanics, Home Exercise Program, Home Safety, Activity Modification, Education of Plan of Care Patient demonstrates compliance with HEP?: Yes Short Term Goals Goal #1: Right shoulder flexion 90 degrees AROM. Goal to be met by: 07/12/16 (90 today ,but inconsistent ) Progress towards Goal:: Partially Met Goal #2: PROM right shoulder WFL's. Goal to be met by: 07/12/16 Progress towards Goal:: Progressing Goal #3: General strength of right shoulder 4/5 in available range. Goal to be met by: 07/12/16 Progress towards Goal:: Progressing Goal #4: Pt to demonstrate good postural awareness. Goal to be met by: 07/12/16 Progress towards Goal:: Partially Met Cider Press Operator Goals Goal #1: Pt knows HEP and to continue exercises to maintain functional level at D/C. Goal to be met by: 08/20/16 Progress towards goal: Partially Met Goal #2: Score on UE functional scale improved to <19% impairment. Goal to be met by: 08/20/16 (~ 28-30% impaired) Progress towards goal: Progressing Goal #3: RUE AROM improved for patient to be able to style her hair. Goal to be met by: 08/20/16 Progress towards goal: Progressing Goal #4: Pt able to perform ADL's of cooking and housework with minimal difficulty. Goal to be met by: 08/20/16 Progress towards goal: Progressing Plan PLAN OF CARE EXPIRES ON:: 08/20/16 ORDER # VISITS AND/OR THROUGH DATE: 08/20/16 PLAN: Continue Plan of Care
--- NOTE | 2016-07-13 10:26 | RS.OPPTDN ---
Subjective Date of Note: 07/13/16 Visit #: 11 Date of Evaluation: 06/20/16 Payer Source: MEDICARE Treatment Diagnosis: Right shoulder weakness, right shoulder pain, dominant UE Current Subjective/complaints:: Patient reports she fell at home yesterday,has bruising on the R side of her face and eye.She feels she did not injure the R shoulder,but is more sore in the R scapular area today. Pain Assessment - Pain Description Pain Location: Right shoulder Pain Description: Dull, Aching Current Pain Intensity: 0 at rest ,varies with AROM - Heat/Cryotherapy Treatment: Hot Pack (20 mins. in sitting to R shoulder.) Interventions - Exercise/Activities/Manual Therapy Exercises/Activities: HEP review only while receiving manual therapy today. Total minutes of Exercise: 0 Manual Therapy: 30 mins. soft tissue mobilization to R shoulder area,with focus on medial border of R scapula trigger points,and deltoid. Total minutes of Manual Therapy: 30 HOME EXERCISE PROGRAM: Wand exercises into flexion and abduction in standing or sitting, RTC series in pendulum position. - Charges Total Direct Minutes: 30 Total Treatment Time: 5 Procedures billed for this date of service:: hp,manual 2 Assessment: Patient reports significant relief and improved flexibility in the R scapular region.We discussed for her to continue HEP as tolerated in PAIN FREE ROM and we will resume stretching on her next appt. this Monday. Patient Education: Body/Joint mechanics, Home Exercise Program, Home Safety, Activity Modification, Education of Plan of Care Patient demonstrates compliance with HEP?: Yes Short Term Goals Goal #1: Right shoulder flexion 90 degrees AROM. Goal to be met by: 07/12/16 Progress towards Goal:: Partially Met Goal #2: PROM right shoulder WFL's. Goal to be met by: 07/12/16 Progress towards Goal:: Progressing Goal #3: General strength of right shoulder 4/5 in available range. Goal to be met by: 07/12/16 Progress towards Goal:: Progressing Goal #4: Pt to demonstrate good postural awareness. Goal to be met by: 07/12/16 Progress towards Goal:: Partially Met Answerer Goals Goal #1: Pt knows HEP and to continue exercises to maintain functional level at D/C. Goal to be met by: 08/20/16 Progress towards goal: Partially Met Goal #2: Score on UE functional scale improved to <19% impairment. Goal to be met by: 08/20/16 (~ 28-30% impaired) Goal #3: RUE AROM improved for patient to be able to style her hair. Goal to be met by: 08/20/16 (N/A today) Goal #4: Pt able to perform ADL's of cooking and housework with minimal difficulty. Goal to be met by: 08/20/16 Progress towards goal: Progressing Plan PLAN OF CARE EXPIRES ON:: 08/20/16 ORDER # VISITS AND/OR THROUGH DATE: 08/20/16 PLAN: Continue Plan of Care
--- NOTE | 2016-07-13 16:16 | RS.PTSUM ---
Progress Note/Summary Date of Note: 07/13/16 Date of Evaluation: 06/20/16 Number of Visits: 10 Reporting Period for this Progress Note: 06/20/16 through 07/12/16 Current Complaints/Gains: Patient reports her flexibility is slowly getting better. She feels the strength is increase seems to be very slow. She is highly motivated to improve. Objective Measurements/Presentation: Right shoulder active flexion ~90 degrees, AAROM 115 degrees with wand. Active abduction ~74 degrees. Passive abduction to 88 degrees. Active ER 30 degrees, PROM to 35 degrees. Active IR 50 degrees. G Codes: Carry current CJ. Carry goal CI Source of G Code Score: UE functional scale : She scores herself 62/80, but based on presentation in the department she appears to be @ least 28-30% impaired. - Short Term Goals Goal #1: Right shoulder flexion 90 degrees AROM. Goal to be met by: 07/12/16 Progress towards Goal:: Partially Met Goal #2: PROM right shoulder WFL's. Goal to be met by: 07/27/16 Progress towards Goal:: Progressing Goal #3: General strength of right shoulder 4/5 in available range. Goal to be met by: 07/27/16 Progress towards Goal:: Progressing Goal #4: Pt to demonstrate good postural awareness. Goal to be met by: 07/12/16 Progress towards Goal:: Partially Met - Delivery Representative Goals Goal #1: Pt knows HEP and to continue exercises to maintain functional level at D/C. Goal to be met by: 08/20/16 Progress towards goal: Partially Met Goal #2: Score on UE functional scale improved to <19% impairment. Goal to be met by: 08/20/16 (~ 28-30% impaired) Progress towards goal: Progressing Goal #3: RUE AROM improved for patient to be able to style her hair. Goal to be met by: 08/20/16 (N/A today) Progress towards goal: Progressing Goal #4: Pt able to perform ADL's of cooking and housework with minimal difficulty. Goal to be met by: 08/20/16 Progress towards goal: Progressing - Assessment Summary: Patient has made progress towards goals., Patient demonstrates potential to gain increased function with therapy - Plan Plan: Continue Plan of Care PLAN OF CARE EXPIRES ON:: 08/20/16 ORDER # VISITS AND/OR THROUGH DATE: 08/20/16
--- NOTE | 2016-07-15 11:26 | RS.OPPTDN ---
Subjective Date of Note: 07/15/16 Visit #: 12 Date of Evaluation: 06/20/16 Payer Source: MEDICARE Treatment Diagnosis: Right shoulder weakness, right shoulder pain, dominant UE Current Subjective/complaints:: Reports increased muscle soreness from recent fall,has bruising on the R upper portion of the middle deltoid and R side of her face.She does not appear to have any change or loss of motion in the R shoulder. Pain Assessment - Pain Description Pain Location: Right shoulder Pain Description: Dull, Aching Current Pain Intensity: 0 at rest ,5/10 with AROM - Heat/Cryotherapy Treatment: Hot Pack (20 mins. in sitting position to R shoulder,prior to exercises) Interventions - Exercise/Activities/Manual Therapy Exercises/Activities: 25 mins. of PROM to AAROM in supine in all directions, scapular pro/retraction.Ended session with 1# wand exercises for chest press and overhead flexion,3/10 each. Total minutes of Exercise: 25 Manual Therapy: NA Total minutes of Manual Therapy: 0 HOME EXERCISE PROGRAM: Wand exercises into flexion and abduction in standing or sitting, RTC series in pendulum position. - Charges Total Direct Minutes: 25 Total Treatment Time: 45 Procedures billed for this date of service:: hp,ex 2 Assessment: Patient reports increased muscle soreness,but only has minimal increased difficulty with external rotation today.No other loss of motion noted today since her fall.She is compliant to HEP.She can benefit from strengthening as she cannot maintain functional positions for ADL's ,stretching to increase her motion. Patient Education: Body/Joint mechanics, Home Exercise Program, Home Safety, Activity Modification, Education of Plan of Care Patient demonstrates compliance with HEP?: Yes Short Term Goals Goal #1: Right shoulder flexion 90 degrees AROM. Goal to be met by: 07/12/16 Progress towards Goal:: Partially Met Goal #2: PROM right shoulder WFL's. Goal to be met by: 07/27/16 Progress towards Goal:: Progressing Goal #3: General strength of right shoulder 4/5 in available range. Goal to be met by: 07/27/16 (3/5) Progress towards Goal:: No Change Goal #4: Pt to demonstrate good postural awareness. Goal to be met by: 07/12/16 Progress towards Goal:: Partially Met Fdc Goals Goal #1: Pt knows HEP and to continue exercises to maintain functional level at D/C. Goal to be met by: 08/20/16 Progress towards goal: Partially Met Goal #2: Score on UE functional scale improved to <19% impairment. Goal to be met by: 08/20/16 (~ 28-30% impaired) Progress towards goal: Progressing Goal #3: RUE AROM improved for patient to be able to style her hair. Goal to be met by: 08/20/16 (N/A today) Progress towards goal: Progressing Goal #4: Pt able to perform ADL's of cooking and housework with minimal difficulty. Goal to be met by: 08/20/16 Progress towards goal: Progressing Plan PLAN OF CARE EXPIRES ON:: 08/20/16 ORDER # VISITS AND/OR THROUGH DATE: 08/20/16 PLAN: Continue Plan of Care
--- NOTE | 2016-07-20 09:58 | RS.OPPTDN ---
Subjective Date of Note: 07/20/16 Visit #: 13 Date of Evaluation: 06/20/16 Payer Source: MEDICARE Treatment Diagnosis: Right shoulder weakness, right shoulder pain, dominant UE Current Subjective/complaints:: Patient reports feeling tighter today,,but continues to do HEP ," the best I can." Pain Assessment - Pain Description Pain Location: Right shoulder Pain Description: Tightness, Dull, Aching Current Pain Intensity: 4/10 - Heat/Cryotherapy Treatment: Hot Pack (20 mins. to R shoulder ,prior to exercises) Interventions - Exercise/Activities/Manual Therapy Exercises/Activities: 25 mins. of PROM to AAROM in supine in all directions including scaption,abduction,ER/IR,horizontal abduction,abduction,scapular pro/ retraction. Total minutes of Exercise: 25 Manual Therapy: NA Total minutes of Manual Therapy: 0 HOME EXERCISE PROGRAM: Wand exercises into flexion and abduction in standing or sitting, RTC series in pendulum position. - Charges Total Direct Minutes: 25 Total Treatment Time: 45 Procedures billed for this date of service:: hp,ex 2 Assessment: Patient has increased tightness today,especially with external rotation ,but all directions improved after multiple reps. of passive motion.She is tender to palpate the long head tendon of the biceps today.He rpassive motion is 70% functional,but her strength deficit interferes with her ability to maintain finctional positiond for ADL's. Patient Education: Education of diagnosis, Body/Joint mechanics, Home Exercise Program, Home Safety, Activity Modification, Education of Plan of Care Patient demonstrates compliance with HEP?: Yes Short Term Goals Goal #1: Right shoulder flexion 90 degrees AROM. Goal to be met by: 07/12/16 Progress towards Goal:: Partially Met Goal #2: PROM right shoulder WFL's. Goal to be met by: 07/27/16 Progress towards Goal:: Partially Met Goal #3: General strength of right shoulder 4/5 in available range. Goal to be met by: 07/27/16 (3/5) Progress towards Goal:: No Change Goal #4: Pt to demonstrate good postural awareness. Goal to be met by: 07/12/16 Progress towards Goal:: Partially Met Turn Out Goals Goal #1: Pt knows HEP and to continue exercises to maintain functional level at D/C. Goal to be met by: 08/20/16 Progress towards goal: Partially Met Goal #2: Score on UE functional scale improved to <19% impairment. Goal to be met by: 08/20/16 (~ 28-30% impaired) Progress towards goal: Progressing Goal #3: RUE AROM improved for patient to be able to style her hair. Goal to be met by: 08/20/16 Goal #4: Pt able to perform ADL's of cooking and housework with minimal difficulty. Goal to be met by: 08/20/16 Progress towards goal: No Change Plan PLAN OF CARE EXPIRES ON:: 08/20/16 ORDER # VISITS AND/OR THROUGH DATE: 08/20/16 PLAN: Continue Plan of Care
--- NOTE | 2016-07-22 10:27 | RS.OPPTDN ---
Subjective Date of Note: 07/22/16 Visit #: 14 Date of Evaluation: 06/20/16 Payer Source: MEDICARE Treatment Diagnosis: Right shoulder weakness, right shoulder pain, dominant UE Current Subjective/complaints:: Reports her concern is the weakness in the R UE, but realizes she is going to have a deficit,and also she is only 6 months post- op. Pain Assessment - Pain Description Pain Location: Right shoulder Pain Description: Tightness, Dull, Aching Current Pain Intensity: 5/10 - Heat/Cryotherapy Treatment: Hot Pack (20 mins. prior to exercises) Interventions - Exercise/Activities/Manual Therapy Exercises/Activities: 25 mins. of PROM to AAROM in supine in all directions including scaption,abduction,ER/IR,horizontal abduction,abduction,scapular pro/ retraction.AROM of chest press motion in supine with 2# dumbbell,2/15 reps.Attempted overhead motion with 1# in supine,able to do this motion in 50 % of ROM. Total minutes of Exercise: 25 Manual Therapy: NA Total minutes of Manual Therapy: 0 HOME EXERCISE PROGRAM: Wand exercises into flexion and abduction in standing or sitting, RTC series in pendulum position. - Charges Total Direct Minutes: 25 Total Treatment Time: 45 Procedures billed for this date of service:: hp,ex 2 Assessment: Patient more guarded today as her pain elevates with AROM.She has better tolerance to passive stretches ,especially combined with gentle distraction of the GH joint.She is motivated to improve ,does HEP as tolerated. Patient Education: Body/Joint mechanics, Home Exercise Program, Education of Plan of Care Patient demonstrates compliance with HEP?: Yes Short Term Goals Goal #1: Right shoulder flexion 90 degrees AROM. Goal to be met by: 07/12/16 Progress towards Goal:: Partially Met Goal #2: PROM right shoulder WFL's. Goal to be met by: 07/27/16 Progress towards Goal:: Partially Met Goal #3: General strength of right shoulder 4/5 in available range. Goal to be met by: 07/27/16 (3/5) Progress towards Goal:: No Change Goal #4: Pt to demonstrate good postural awareness. Goal to be met by: 07/12/16 Progress towards Goal:: Partially Met Unit Receptionist Goals Goal #1: Pt knows HEP and to continue exercises to maintain functional level at D/C. Goal to be met by: 08/20/16 Progress towards goal: Partially Met Goal #2: Score on UE functional scale improved to <19% impairment. Goal to be met by: 08/20/16 (~ 28-30% impaired) Progress towards goal: No Change Goal #3: RUE AROM improved for patient to be able to style her hair. Goal to be met by: 08/20/16 Progress towards goal: Progressing Goal #4: Pt able to perform ADL's of cooking and housework with minimal difficulty. Goal to be met by: 08/20/16 Progress towards goal: No Change Plan PLAN OF CARE EXPIRES ON:: 08/20/16 ORDER # VISITS AND/OR THROUGH DATE: 08/20/16 PLAN: Continue Plan of Care
--- NOTE | 2016-07-25 09:55 | RS.OPPTDN ---
Subjective Date of Note: 07/25/16 Visit #: 15 Date of Evaluation: 06/20/16 Payer Source: MEDICARE Treatment Diagnosis: Right shoulder weakness, right shoulder pain, dominant UE Current Subjective/complaints:: Patient reports driving yesterday,without ,"too much difficulty" ,keeps the R UE on the lower portion of the steering wheel. Pain Assessment - Pain Description Pain Location: Right shoulder Pain Description: Tightness, Dull, Aching Current Pain Intensity: 3/10 - Heat/Cryotherapy Treatment: Hot Pack (20 mins. prior to exercises) Interventions - Exercise/Activities/Manual Therapy Exercises/Activities: 25 mins. of PROM to AAROM in supine in all directions including scaption,abduction,ER/IR,horizontal abduction,abduction,scapular pro/ retraction.AROM of chest press motion in supine with 1# dumbbell,3/15 reps.Biceps curls with 1#,3/15 reps.Isometric shoulder abduction x 10. Total minutes of Exercise: 25 Manual Therapy: NA Total minutes of Manual Therapy: 0 HOME EXERCISE PROGRAM: Wand exercises into flexion and abduction in standing or sitting, RTC series in pendulum position. - Charges Total Direct Minutes: 25 Total Treatment Time: 45 Procedures billed for this date of service:: hp,ex 2 Assessment: Patient has less tightness present today for scaption and abduction.She fatigues easily with AROM ,continues to have difficulty with maintaining the positions necessary for overhead activities,such as grooming her hair.She can benefit from strengthening as she continues to have significant weakness present. Patient Education: Education of diagnosis, Body/Joint mechanics, Home Exercise Program, Home Safety, Activity Modification, Education of Plan of Care Patient demonstrates compliance with HEP?: Yes Short Term Goals Goal #1: Right shoulder flexion 90 degrees AROM. Goal to be met by: 07/12/16 Progress towards Goal:: Partially Met Goal #2: PROM right shoulder WFL's. Goal to be met by: 07/27/16 Progress towards Goal:: Partially Met Goal #3: General strength of right shoulder 4/5 in available range. Goal to be met by: 07/27/16 (3/5) Progress towards Goal:: No Change Goal #4: Pt to demonstrate good postural awareness. Goal to be met by: 07/12/16 Progress towards Goal:: Partially Met Skilled Nursing Goals Goal #1: Pt knows HEP and to continue exercises to maintain functional level at D/C. Goal to be met by: 08/20/16 Progress towards goal: Partially Met Goal #2: Score on UE functional scale improved to <19% impairment. Goal to be met by: 08/20/16 (~ 28-30% impaired) Progress towards goal: No Change Goal #3: RUE AROM improved for patient to be able to style her hair. Goal to be met by: 08/20/16 Progress towards goal: Progressing Goal #4: Pt able to perform ADL's of cooking and housework with minimal difficulty. Goal to be met by: 08/20/16 Progress towards goal: No Change Plan PLAN OF CARE EXPIRES ON:: 08/20/16 ORDER # VISITS AND/OR THROUGH DATE: 08/20/16 PLAN: Continue Plan of Care
--- NOTE | 2016-07-27 11:13 | RS.OPPTDN ---
Subjective Date of Note: 07/27/16 Visit #: 16 Date of Evaluation: 06/20/16 Payer Source: MEDICARE Treatment Diagnosis: Right shoulder weakness, right shoulder pain, dominant UE Current Subjective/complaints:: Reports she is trying to keep the R shoulder loosened up,but it feels very weak. Pain Assessment - Pain Description Pain Location: Right shoulder Pain Description: Tightness, Dull, Aching Current Pain Intensity: not rated today - Heat/Cryotherapy Treatment: Hot Pack (20 mis. to R shoulder prior to exercises) Interventions - Exercise/Activities/Manual Therapy Exercises/Activities: 25 mins. of PROM to AAROM in supine in all directions including scaption,abduction,ER/IR,horizontal abduction,abduction,scapular pro/ retraction.AROM of chest press motion in supine with 1# wand ,3/15 reps.Biceps curls with 1#,3/15 reps.Isometric shoulder abduction x 10. Total minutes of Exercise: 25 Manual Therapy: NA Total minutes of Manual Therapy: 0 HOME EXERCISE PROGRAM: Wand exercises into flexion and abduction in standing or sitting, RTC series in pendulum position. - Charges Total Direct Minutes: 25 Total Treatment Time: 45 Procedures billed for this date of service:: hp,ex 2 Assessment: Patient responds well to passive stretching,has increased passive motion ,except for rather firm end feel present with ER and she reports pain with this motion.She continues to have significant strength deficit,actively elevates the R shoulder to 50 % of functional height ,but cannot sustain the position to do ADL,s. Patient Education: Education of diagnosis, Body/Joint mechanics, Home Exercise Program, Home Safety, Activity Modification, Education of Plan of Care Patient demonstrates compliance with HEP?: Yes Short Term Goals Goal #1: Right shoulder flexion 90 degrees AROM. Goal to be met by: 07/12/16 (70 degrees briefly) Progress towards Goal:: Partially Met Goal #2: PROM right shoulder WFL's. Goal to be met by: 07/27/16 Progress towards Goal:: Partially Met Goal #3: General strength of right shoulder 4/5 in available range. Goal to be met by: 07/27/16 Progress towards Goal:: No Change Goal #4: Pt to demonstrate good postural awareness. Goal to be met by: 07/12/16 Progress towards Goal:: Met Control Clerk Repairs Goals Goal #1: Pt knows HEP and to continue exercises to maintain functional level at D/C. Goal to be met by: 08/20/16 Progress towards goal: Partially Met Goal #2: Score on UE functional scale improved to <19% impairment. Goal to be met by: 08/20/16 (~ 28-30% impaired) Progress towards goal: No Change Goal #3: RUE AROM improved for patient to be able to style her hair. Goal to be met by: 08/20/16 Progress towards goal: Progressing Goal #4: Pt able to perform ADL's of cooking and housework with minimal difficulty. Goal to be met by: 08/20/16 Progress towards goal: No Change Plan PLAN OF CARE EXPIRES ON:: 08/20/16 ORDER # VISITS AND/OR THROUGH DATE: 08/20/16 PLAN: Continue Plan of Care
--- NOTE | 2016-08-02 10:02 | RS.OPPTDN ---
Subjective Date of Note: 08/02/16 Visit #: 17 Date of Evaluation: 06/20/16 Payer Source: MEDICARE Treatment Diagnosis: Right shoulder weakness, right shoulder pain, dominant UE Current Subjective/complaints:: Patient reports she is having some pain -free periods during the day now,but the R UE fatigues easily. Pain Assessment - Pain Description Pain Location: Right shoulder Pain Description: Tightness, Dull, Aching Current Pain Intensity: not rated today - Heat/Cryotherapy Treatment: Hot Pack (20 mins. to R shoulder prior to exercises) Interventions - Exercise/Activities/Manual Therapy Exercises/Activities: 25 mins. of PROM to AAROM in supine in all directions including scaption,abduction,ER/IR,horizontal abduction,abduction,scapular pro/ retraction.Gentle long-axis distraction to R UE while in supine. Total minutes of Exercise: 25 Manual Therapy: NA Total minutes of Manual Therapy: 0 HOME EXERCISE PROGRAM: Wand exercises into flexion and abduction in standing or sitting, RTC series in pendulum position. - Charges Total Direct Minutes: 25 Total Treatment Time: 45 Procedures billed for this date of service:: hp,ex 2 Assessment: Patient has improved ability to reach up behind her head by walking her fingers up her head,but can now maintain this position.She has good scapular mobility.She continues to have rather firm end feel for external rotation. Patient Education: Education of diagnosis, Body/Joint mechanics, Home Exercise Program, Home Safety, Activity Modification, Education of Plan of Care Patient demonstrates compliance with HEP?: Yes Short Term Goals Goal #1: Right shoulder flexion 90 degrees AROM. Goal to be met by: 07/12/16 (70 degrees briefly) Progress towards Goal:: Partially Met Goal #2: PROM right shoulder WFL's. Goal to be met by: 07/27/16 Progress towards Goal:: Partially Met Goal #3: General strength of right shoulder 4/5 in available range. Goal to be met by: 07/27/16 Progress towards Goal:: No Change Goal #4: Pt to demonstrate good postural awareness. Goal to be met by: 07/12/16 Progress towards Goal:: Met Prison Goals Goal #1: Pt knows HEP and to continue exercises to maintain functional level at D/C. Goal to be met by: 08/20/16 Progress towards goal: Met Goal #2: Score on UE functional scale improved to <19% impairment. Goal to be met by: 08/20/16 (~ 28-30% impaired) Progress towards goal: No Change Goal #3: RUE AROM improved for patient to be able to style her hair. Goal to be met by: 08/20/16 Progress towards goal: Progressing Goal #4: Pt able to perform ADL's of cooking and housework with minimal difficulty. Goal to be met by: 08/20/16 Progress towards goal: Progressing Plan PLAN OF CARE EXPIRES ON:: 08/20/16 ORDER # VISITS AND/OR THROUGH DATE: 08/20/16 PLAN: Continue Plan of Care
== END 2016-08-03 ==
PROVIDERS: ATTEND Orthopaedic Surgery
DX: M25.511 Pain in right shoulder (principal); S42.291D Other displaced fracture of upper end of right humerus, subsequent encounter for fracture with routine healing

== ENCOUNTER 2016-08-04 09:27 | Outpatient (RCR) ==
[2015-12-28 02:20] VITALS: BMI 21.6
--- NOTE | 2016-08-04 10:53 | RS.OPPTDN ---
Subjective Date of Note: 08/04/16 Visit #: 18 Date of Evaluation: 06/20/16 Payer Source: MEDICARE Treatment Diagnosis: Right shoulder weakness, right shoulder pain, dominant UE Current Subjective/complaints:: Patient agrees with D/C plan today,continues to do her HEP ,focusing on stretching.She feels the strength is about the same. *Precautions: Please follow protocol in pt's chart. Pain Assessment - Pain Description Pain Location: Right shoulder Pain Description: Dull, Aching Current Pain Intensity: not rated today - Heat/Cryotherapy Treatment: Hot Pack (20 mins. prior to exercises.) Interventions - Exercise/Activities/Manual Therapy Exercises/Activities: 25 mins. of PROM to AAROM in supine in all directions including scaption,abduction,ER/IR,horizontal abduction,abduction,scapular pro/ retraction.HEP review and ROM measurements taken today. Total minutes of Exercise: 25 Manual Therapy: NA Total minutes of Manual Therapy: 0 HOME EXERCISE PROGRAM: Wand exercises into flexion and abduction in standing or sitting, RTC series in pendulum position. - Charges Total Direct Minutes: 25 Total Treatment Time: 45 Procedures billed for this date of service:: hp,ex 2 Assessment: Patient has met rehab potential at this time,has good understanding of HEP,understands to focus on stretching more ,as opposed to strengthening.She agrees with D/C plan today. Patient demonstrates compliance with HEP?: Yes Short Term Goals Goal #1: Right shoulder flexion 90 degrees AROM. Goal to be met by: 07/12/16 (70 degrees briefly) Progress towards Goal:: Partially Met Goal #2: PROM right shoulder WFL's. Goal to be met by: 07/27/16 Progress towards Goal:: Partially Met Goal #3: General strength of right shoulder 4/5 in available range. Goal to be met by: 07/27/16 Progress towards Goal:: No Change Goal #4: Pt to demonstrate good postural awareness. Goal to be met by: 07/12/16 Progress towards Goal:: Met Equity Director Goals Goal #1: Pt knows HEP and to continue exercises to maintain functional level at D/C. Goal to be met by: 08/20/16 Progress towards goal: Met Goal #2: Score on UE functional scale improved to <19% impairment. Goal to be met by: 08/20/16 Progress towards goal: No Change Goal #3: RUE AROM improved for patient to be able to style her hair. Goal to be met by: 08/20/16 Progress towards goal: Progressing Goal #4: Pt able to perform ADL's of cooking and housework with minimal difficulty. Goal to be met by: 08/20/16 Progress towards goal: Partially Met Plan PLAN OF CARE EXPIRES ON:: 08/20/16 ORDER # VISITS AND/OR THROUGH DATE: 08/20/16 PLAN: Plan for Discharge
--- NOTE | 2016-08-16 15:25 | RS.OPPTDC ---
Date of Discharge: 08/04/16 Date of Evaluation: 06/20/16 Number of Visits: 18 Treatment Diagnosis: Right shoulder weakness, right shoulder pain, dominant UE Current Complaints/Gains: Patient reports slow progress, but agress to D/C plan. She is compliant with her HEP. She understands to focus on ROM/ flexibility. Functional Outcome Measure UE Functional Index: 62 (62/80=22.5% impairment) - G Codes & Severity Modifier G Codes & Modifier: Carry goal CI. Carry D/C CJ Source of G Code score: UE functional scale, patient continue so demonstrate ~30 -35% impairment in department. Interventions - Exercise/Activities/Manual Therapy Exercises/Activities: NA Manual Therapy: NA HOME EXERCISE PROGRAM: Wand exercises into flexion and abduction in standing or sitting, RTC series in pendulum position. - Objective Findings Observations,measurements,etc.: Supine AROM: flexion 77 degrees, abd 70 degrees , ER 33 degrees, IR 57 degrees. PROM flexion 117, abd 110, IR 65, ER 45-50 degrees with pain. IR/ER with right UE abducted ~ 40 degrees. - Charges Total Direct Minutes: NA Total Treatment Time: NA Procedures billed for this date of service:: NA Assessment Assessment: Patient feels she is slowly improving. She continues to demonstrate limited active ROM of the right shoulder. Demonstrates to have met a plateau at this time. No further skilled therapy justified at this time. Patient strongly encouraged to continue with exercises at home. Short Term Goals Goal #1: Right shoulder flexion 90 degrees AROM. Goal to be met by: 07/12/16 (70 degrees briefly) Progress towards Goal:: Partially Met Goal #2: PROM right shoulder WFL's. Goal to be met by: 07/27/16 Progress towards Goal:: Partially Met Goal #3: General strength of right shoulder 4/5 in available range. Goal to be met by: 07/27/16 Progress towards Goal:: Not Met Goal #4: Pt to demonstrate good postural awareness. Goal to be met by: 07/12/16 Progress towards Goal:: Met Assisted Goals Goal #1: Pt knows HEP and to continue exercises to maintain functional level at D/C. Goal to be met by: 08/20/16 Progress towards goal: Met Goal #2: Score on UE functional scale improved to <19% impairment. Goal to be met by: 08/20/16 Progress towards goal: Not Met Goal #3: RUE AROM improved for patient to be able to style her hair. Goal to be met by: 08/20/16 Progress towards goal: Not Met Goal #4: Pt able to perform ADL's of cooking and housework with minimal difficulty. Goal to be met by: 08/20/16 Progress towards goal: Not Met Plan Reason for Discharge:: Lack of Progress
== END 2016-09-02 ==
PROVIDERS: ATTEND Orthopaedic Surgery
DX: S42.291A Other displaced fracture of upper end of right humerus, initial encounter for closed fracture (principal); M25.511 Pain in right shoulder

== ENCOUNTER 2017-11-02 09:00 | Outpatient (RCR) ==
[2015-12-28 02:20] VITALS: BMI 21.6
--- NOTE | 2017-10-30 11:43 | RS.OPPTEV2 ---
Date of Note: 10/27/17 Visit #: 1 Date of Evaluation: 10/27/17 Payer Source: MEDICARE Date of Onset/Injury/Change in Status: 07/18/17 Treatment Diagnosis: Back pain and unstable gait History of Condition/Mechanism of Injury:: Mrs. Parr states her back started hurting as a result of a fall on 07/18/17. States it was 3 am and she had fallen asleep in the recliner. Her came in a woke her up to come to bed. States she stood up and as she turned, she fell backwards. She landed on her tailbone. Reports her walking and balance issues also began after the fall. Prior Level of Function.....Patient was independent with: ADL's, Self Care, Caregiving, Ambulation/Mobility, Community Integration/Access Functional Limitations: ADL's, Reaching, Pushing, Pulling, Lifting, Sitting ( for too long), Standing, Bending, Squatting, Ambulation, Community Access/ Integration Current Subjective/complaints:: Mrs. Parr reports back pain and the feeling of weakness with prolonged standing and walking. States she has trouble standing up straight due to pain and weakness. She denies pain in her legs, and also denies tingling or numbness. States she does get a little dizzy with quick changes of position and sporadically with neck extension. She gives the example of having to reach up in her bathroom cabinet. When she raises her head as she reaches, she will get a little dizzy. States the dizziness passes quickly. She has taken Aleve and tried heat and ice to her low back. She reports difficulty standing for very long or walking long distances due to increased back pain and weakness in the lumbar spine. States she feels better if she can sit for a few minutes. *Precautions: . Medical History Medical History: Hypertension, Arthritis, Cancer Medical History Comments:: Anxiety/Depression Surgical History: Cholecystectomy, Tonsillectomy Surgical History Comments:: bilteral hip replacement,Appendectomy & cataract surgery. Smoking Status: Never smoker Diagnostic Testing/Imaging:: X ray of lumbar spine on 07/25/17: Impression: "Moderate to marked compression fracture at T12, age unknown. Scoliosis with moderate to marked degenerative changes." Hx Home Medications: Lopressor, Escitalopram,armour thyroid Patient's Goals: Her goal is to get relief of back pain and improve her ability with walking. Pain Assessment - Pain Description Pain Location: low back Pain Description: Aching Pain Description: weakness Current Pain Intensity: 5/10 Worst Pain Intensity: 9/10 Functional Outcome Measure Oswestry LBP: 42 Tinetti: 19 (19/28=32% impairment) - G Codes & Severity Modifier G Codes & Modifier: Mobility current CJ. Mobility goal CI Source of G Code score: took the average of Oswestry and Tinetti scores (42 +32) /2=37 Observation - Observation Posture: Forward Head, Increased Thoracic Kyphosis, Decreased Lumbar Lordosis Gait - Gait Pattern Gait Comments: Patient ambulates without an assistive device. She demonstrates a forward posture with ambulation. Demonstrates inconsistent foot clearance on the right LE during swing phase. She deviates from a straight path moderately. She reported significant increase in low back pain after ambulating 2.53 seconds in the hallway. 6 minute walk test was there for stopped at 2.53 seconds. Gait speed is .62 m/s, which puts her in the category of limited community ambulator. - ROM Lumbar Flexion: Hand reach to Mid-Shins Sidebending to Left: Reach to Mid-thigh Sidebending to Right: Reach to Mid-thigh Comments: Lumbar extension ~10-15 degrees from neutral with reports of increased pain. Reports mainly a stretch felt with lumbar flexion. Demonstrates most flexion at the hips, rather than at the lumbar spine. - Strength Trunk Rotation: 4 Good Comments: Bilateral hip strength 4/5. Bilateral knees and ankles 4+/5. - Special Tests SLR Test: Negative Left, Negative Right Seated Dural Stretch Test: Negative Left, Negative Right Palpation Comments:: Patient reports no tenderness along the lumbar paraspinals, along the spinous processes with central PA's, or to either SI joint. Sensation - Sensation Right Lower Extremity: Intact/Normal Left Lower Extremity: Intact/Normal Balance - Sitting Balance Static Sitting Balance: Good Dynamic Sitting Balance: Good - Standing Balance Static Standing Balance: Good (-) Dynamic Standing Balance: Fair (+) - Comments Balance Assessment Comments: When testing standing balance, patient demonstrates loss of balance anteriorly. Coordination - Tests Bilateral Heel to Stewart: Normal/Intact Toe Tapping: Normal/Intact Additional Comments: Additional Comments: SLR in supine: left 45 degrees, right 60-65 degrees. Interventions - Exercise/Activities/Manual Therapy Exercises/Activities: Patient instructed HEP of LAQ's and hip flexion in sitting for strengthening of the LE's. Manual Therapy: NA HOME EXERCISE PROGRAM: LAQ's and hip flexion in sitting - Charges Timed Code Treatment Minutes: 0 miins Total Treatment Time: 48 mins Procedures billed for this date of service:: EVAL medium EVALUATION COMPLEXITY LEVEL EVALUATION COMPLEXITY LEVEL: HISTORY: Medium (Hx of JONAS, shoulder Sx), EXAM OF BODY SYSTEMS: Medium, CLINICAL PRESENTATION: Medium, CLINICAL DECISION MAKING: Medium Assessment Assessment: Mrs. Parr presents to therapy with a diagnosis of back pain and unstable gait. Her problems began after a fall in July of this year. She presents with mild weakness of the trunk and LE's. She presents to be at a moderate risk for falls per Tinetti Assessment. She is unable to tolerate prolonged standing to complete ADL's and also does not tolerate prolonged walking due to back pain. Her gait speed puts her in the category of being a limited community ambulator. She is very active and needs to be functional and safe ambulating in the community. She presents good potential to benefit from stretching and strengthening exercises to the trunk and LE's to reduce her pain , improve her balance, and reduce her risk for falls. Patient Education: Education of diagnosis, Body/Joint mechanics, Home Exercise Program, Home Safety, Activity Modification, Education of Plan of Care Rehab Potential: Good Short Term Goals Goal #1: Patient independent and compliant in HEP. Goal to be met by: 11/13/17 Goal #2: Pt will consistently clear the right foot with ambulation in department. Goal to be met by: 11/13/17 Goal #3: Left SLR equal to the right. Goal to be met by: 11/13/17 Goal #4: Bilateral hip strength 4+/5. Goal to be met by: 11/13/17 Group Home Goals Goal #1: Pt knows HEP and to continue exercises to maintain functional level at D/C. Goal to be met by: 12/09/17 Goal #2: Average score of FOM's improved to 19% or less impairment. Goal to be met by: 12/09/17 Goal #3: Pt's gait speed improved to .80 m/s showing her to be a community ambulator Goal to be met by: 12/09/17 Goal #4: Pt to perform prolonged standing for ADL's and walking with min. back pain. Goal to be met by: 12/09/17 Plan - Treatment to be Provided Procedures: Therapeutic Exercises, Therapeutic Activity, Gait Training, Manual Therapy, Patient Education Modalities: Electrical Stimulation, Ultrasound/Phonophoresis, Cryotherapy, Hot Packs - Treatment Plan Frequency: 2-3 X week Duration: 4 weeks ORDER # VISITS AND/OR THROUGH DATE: 12/09/17 - Treatment Code (1) Back pain Code(s): M54.9 - DORSALGIA, UNSPECIFIED Qualifiers: Back pain location: low back pain Chronicity: acute Back pain laterality : unspecified Sciatica presence: unspecified whether sciatica present Qualified Code(s): M54.5 - Low back pain (2) Gait abnormality Code(s): R26.9 - UNSPECIFIED ABNORMALITIES OF GAIT AND MOBILITY Comments: R26.9 (3) At risk for falls Code(s): R29.6 - REPEATED FALLS Comments: R29.6 At risk for falls.
--- NOTE | 2017-10-31 10:37 | RS.OPPTDN ---
Subjective Date of Note: 10/31/17 Visit #: 2 Date of Evaluation: 10/27/17 Payer Source: MEDICARE Treatment Diagnosis: Back pain and unstable gait Current Subjective/complaints:: Patient reports she is cautious when walking , especially when first getting up due to feeling unstable on her feet.She reports doing her HEP,but modified her position to reclined to relieve the back pain. *Precautions: . Pain Assessment - Pain Description Pain Location: back/hips Current Pain Intensity: 5/10 - Heat/Cryotherapy Treatment: Hot Pack (20 mins. ( sitting ) prior to exercises) Interventions - Exercise/Activities/Manual Therapy Exercises/Activities: 35 mins. total ,beginning on leg press ,@ 45 # ,then calf raises @ 15 #.Ended session with isometric hip add/abd .All exercises 3/15 reps. today.Instructed to do HEP in pain free ROM. Total minutes of Exercise: 35 Manual Therapy: NA HOME EXERCISE PROGRAM: LAQ's and hip flexion in sitting - Charges Timed Code Treatment Minutes: 35 Total Treatment Time: 55 Procedures billed for this date of service:: hp,ex 2 Assessment: Patient requires cues to control eccentric motions as the quads fatigue.She does not report LBP while on leg press,as her back is properly supported.She is compliant to HEP,has good understanding to odify them is p[ain is present.Her gait pattern has widened BIENVENIDO,minmal foot clearance as she fatigues. Patient Education: Education of diagnosis, Body/Joint mechanics, Home Exercise Program, Home Safety, Activity Modification, Education of Plan of Care Patient demonstrates compliance with HEP?: Yes Short Term Goals Goal #1: Patient independent and compliant in HEP. Goal to be met by: 11/13/17 Progress towards Goal:: Progressing Goal #2: Pt will consistently clear the right foot with ambulation in department. Goal to be met by: 11/13/17 Goal #3: Left SLR equal to the right. Goal to be met by: 11/13/17 Goal #4: Bilateral hip strength 4+/5. Goal to be met by: 11/13/17 Mcfp Goals Goal #1: Pt knows HEP and to continue exercises to maintain functional level at D/C. Goal to be met by: 12/09/17 Progress towards goal: Progressing Goal #2: Average score of FOM's improved to 19% or less impairment. Goal to be met by: 12/09/17 Goal #3: Pt's gait speed improved to .80 m/s showing her to be a community ambulator Goal to be met by: 12/09/17 Goal #4: Pt to perform prolonged standing for ADL's and walking with min. back pain. Goal to be met by: 12/09/17 Plan PLAN OF CARE EXPIRES ON:: 12/09/17 ORDER # VISITS AND/OR THROUGH DATE: 12/09/17 PLAN: Continue PT to eliminate LBP,strengthen LE's for safer transfers and gait.
--- NOTE | 2017-11-02 10:19 | RS.OPPTDN ---
Subjective Date of Note: 11/02/17 Visit #: 3 Date of Evaluation: 10/27/17 Payer Source: MEDICARE Treatment Diagnosis: Back pain and unstable gait Current Subjective/complaints:: Patient reports the therapy is helping ,already feels like she is getting up and down easier. *Precautions: . Pain Assessment - Pain Description Pain Location: low back Pain Description: Dull, Aching Pain Description: "soreness" Current Pain Intensity: not rated - Heat/Cryotherapy Treatment: Hot Pack (20 mins. prior to exercises) Interventions - Exercise/Activities/Manual Therapy Exercises/Activities: 40 mins. total ,beginning on leg press ,315 reps @ 45 #, progresed to 60#,also 3/15 reps.Isometric hip abd /adduction .HEP review, instructed to do all exercises in PAIN FREE ROM. Total minutes of Exercise: 40 Manual Therapy: NA Total minutes of Manual Therapy: 0 HOME EXERCISE PROGRAM: Hip flexion in reclined position due to reporting the sitting was eliciting back pain.Continue LAQ's and walk as tolerated. - Charges Timed Code Treatment Minutes: 40 Total Treatment Time: 60 Procedures billed for this date of service:: hp,ex 3 Assessment: Progressing ,able to increase the resistance today on leg press without pain in the back.She requires cues to extend trunk and widen her base of support when initially standing.She is motivated to improve and compliant to HEP. Patient Education: Education of diagnosis, Body/Joint mechanics, Home Exercise Program, Home Safety, Activity Modification, Education of Plan of Care Patient demonstrates compliance with HEP?: Yes Short Term Goals Goal #1: Patient independent and compliant in HEP. Goal to be met by: 11/13/17 Progress towards Goal:: Progressing Goal #2: Pt will consistently clear the right foot with ambulation in department. Goal to be met by: 11/13/17 Progress towards Goal:: Progressing Goal #3: Left SLR equal to the right. Goal to be met by: 11/13/17 Goal #4: Bilateral hip strength 4+/5. Goal to be met by: 11/13/17 Progress towards Goal:: Progressing Gastroenterology Teacher Goals Goal #1: Pt knows HEP and to continue exercises to maintain functional level at D/C. Goal to be met by: 12/09/17 Progress towards goal: Progressing Goal #2: Average score of FOM's improved to 19% or less impairment. Goal to be met by: 12/09/17 Goal #3: Pt's gait speed improved to .80 m/s showing her to be a community ambulator Goal to be met by: 12/09/17 Goal #4: Pt to perform prolonged standing for ADL's and walking with min. back pain. Goal to be met by: 12/09/17 Plan PLAN OF CARE EXPIRES ON:: 12/09/17 ORDER # VISITS AND/OR THROUGH DATE: 12/09/17 PLAN: Continue PT to reduce/eliminate back pain,strengthen core and LE's for safe transfers and gait.
== END 2017-11-03 23:59 ==
PROVIDERS: ATTEND Physician Assistant
DX: M54.5 Low back pain (principal); R26.9 Unspecified abnormalities of gait and mobility; R29.6 Repeated falls

== ENCOUNTER 2017-11-23 09:00 | Outpatient (RCR) ==
[2015-12-28 02:20] VITALS: BMI 21.6
--- NOTE | 2017-11-07 10:28 | RS.OPPTDN ---
Subjective Date of Note: 11/07/17 Visit #: 4 Date of Evaluation: 10/27/17 Payer Source: MEDICARE Treatment Diagnosis: Back pain and unstable gait Current Subjective/complaints:: Patient reports her legs are okay from the exercises last session ,but the bottom of her feet were sore for two to three days.We discussed today's POC,will focus on her balance ,as opposed to resistive exercises. *Precautions: . - Heat/Cryotherapy Treatment: Hot Pack (20 mins. prior to balance exercises) Interventions - Exercise/Activities/Manual Therapy Exercises/Activities: 40 mins. total on [employer] BALANCE SYSTEM,for postural stability,limits of stability,weight shift,ball toss and catch game , with occasional tactile cues and verbal cues to correct balance. Total minutes of Exercise: 40 Manual Therapy: NA Total minutes of Manual Therapy: 0 HOME EXERCISE PROGRAM: Hip flexion in reclined position due to reporting the sitting was eliciting back pain.Continue LAQ's and walk as tolerated. - Charges Timed Code Treatment Minutes: 40 Total Treatment Time: 60 Procedures billed for this date of service:: hp,NMR 3 Assessment: Patient at increased risk for loss of balance consistently today when she weight shifts to the left and posteriorly.She is able to self-correct approx. 80 % of the time .She ambulates with widened base of support ,minimal foot clearance.She has good safety awareness,but this results also in a moderate forward posture.She is very attentive and motivated to improve. Patient Education: Education of diagnosis, Body/Joint mechanics, Home Exercise Program, Home Safety, Activity Modification, Education of Plan of Care Patient demonstrates compliance with HEP?: Yes Short Term Goals Goal #1: Patient independent and compliant in HEP. Goal to be met by: 11/13/17 Progress towards Goal:: Progressing Goal #2: Pt will consistently clear the right foot with ambulation in department. Goal to be met by: 11/13/17 Progress towards Goal:: Progressing Goal #3: Left SLR equal to the right. Goal to be met by: 11/13/17 (N/A) Goal #4: Bilateral hip strength 4+/5. Goal to be met by: 11/13/17 Progress towards Goal:: Progressing Real Estate Closer Goals Goal #1: Pt knows HEP and to continue exercises to maintain functional level at D/C. Goal to be met by: 12/09/17 Progress towards goal: Progressing Goal #2: Average score of FOM's improved to 19% or less impairment. Goal to be met by: 12/09/17 Goal #3: Pt's gait speed improved to .80 m/s showing her to be a community ambulator Goal to be met by: 12/09/17 Goal #4: Pt to perform prolonged standing for ADL's and walking with min. back pain. Goal to be met by: 12/09/17 Progress towards goal: Progressing Plan PLAN OF CARE EXPIRES ON:: 12/09/17 ORDER # VISITS AND/OR THROUGH DATE: 12/09/17 PLAN: Continue PT to increase LE strength,resulting in improved dynamic balance.
--- NOTE | 2017-11-09 10:04 | RS.OPPTDN ---
Subjective Date of Note: 11/09/17 Visit #: 5 Date of Evaluation: 10/27/17 Payer Source: MEDICARE Treatment Diagnosis: Back pain and unstable gait Current Subjective/complaints:: Patient reports the rainy weather has elevated her arhtritic pain ,but it is tolerable. *Precautions: . Pain Assessment - Pain Description Pain Location: lumbar/hips Current Pain Intensity: 3/10 - Heat/Cryotherapy Treatment: Hot Pack (20 mis. to lumbar prior to exercises) Interventions - Exercise/Activities/Manual Therapy Exercises/Activities: 30 mins. total , beginning with 5 /15 reps on leg press @ 45 # ,then standing and marchin in place x 3/15 reps,standing hip abduction 2/ 20 reps.Ended session with hand -hlod assist for side -stepping ,then heel to toe gait with min/moderate assist. Total minutes of Exercise: 30 Manual Therapy: NA Total minutes of Manual Therapy: 0 HOME EXERCISE PROGRAM: Hip flexion in reclined position due to reporting the sitting was eliciting back pain.Continue LAQ's and walk as tolerated. - Charges Timed Code Treatment Minutes: 30 Total Treatment Time: 50 Procedures billed for this date of service:: hp,ex ,NMR Assessment: Patient requires cues to increase her foot clearance with side- stepping,but with forward gait , she is improving the foot clearance.She tneds to widen her BIENVENIDO as she fatigues .She is compliant to HEP,improved safety awareness. Patient Education: Education of diagnosis, Body/Joint mechanics, Home Exercise Program, Home Safety, Activity Modification, Education of Plan of Care Patient demonstrates compliance with HEP?: Yes Short Term Goals Goal #1: Patient independent and compliant in HEP. Goal to be met by: 11/13/17 Progress towards Goal:: Progressing Goal #2: Pt will consistently clear the right foot with ambulation in department. Goal to be met by: 11/13/17 Progress towards Goal:: Progressing Goal #3: Left SLR equal to the right. Goal to be met by: 11/13/17 (N/A) Progress towards Goal:: Progressing Goal #4: Bilateral hip strength 4+/5. Goal to be met by: 11/13/17 Progress towards Goal:: Progressing Snf Goals Goal #1: Pt knows HEP and to continue exercises to maintain functional level at D/C. Goal to be met by: 12/09/17 Progress towards goal: Progressing Goal #2: Average score of FOM's improved to 19% or less impairment. Goal to be met by: 12/09/17 Goal #3: Pt's gait speed improved to .80 m/s showing her to be a community ambulator Goal to be met by: 12/09/17 Goal #4: Pt to perform prolonged standing for ADL's and walking with min. back pain. Goal to be met by: 12/09/17 Progress towards goal: Progressing Plan PLAN OF CARE EXPIRES ON:: 12/09/17 ORDER # VISITS AND/OR THROUGH DATE: 12/09/17 PLAN: Continue PT to reduce back pain ,increase core/LE strength for safer transfers and gait in community.
--- NOTE | 2017-11-14 10:04 | RS.OPPTDN ---
Subjective Date of Note: 11/14/17 Visit #: 6 Date of Evaluation: 10/27/17 Payer Source: MEDICARE Treatment Diagnosis: Back pain and unstable gait Current Subjective/complaints:: Patient pleaed with her progress,feels stronger and steadier on her feet,along with less back pain while up on her feet. *Precautions: . Pain Assessment - Pain Description Pain Location: lumbar Pain Description: Dull Current Pain Intensity: 2-3 - Heat/Cryotherapy Treatment: Hot Pack (2- mins. prior to ex) Interventions - Exercise/Activities/Manual Therapy Exercises/Activities: 30 mins. total , beginning with 6 minte walk test,then 3/ 15 reps on leg press @ 60 # ,isometric hip abd /adduction using small therapy ball.Patient ambulates 1016 feet in 6 mins. today (.85 meters/second ) Total minutes of Exercise: 30 Manual Therapy: NA Total minutes of Manual Therapy: 0 HOME EXERCISE PROGRAM: Hip flexion in reclined position due to reporting the sitting was eliciting back pain.Continue LAQ's and walk as tolerated. - Charges Timed Code Treatment Minutes: 30 Total Treatment Time: 50 Procedures billed for this date of service:: hp,ex,gait Assessment: Patient progressing well,steadier gait ,increased duration for ADL' s with less back pain.She can beenfit fro strengthening the core and hip abducotrs,as she has slight increase in trunk sway as she fatigues.She is highly motivated to improve ,is compliant to HEP. Patient Education: Education of diagnosis, Body/Joint mechanics, Home Exercise Program, Home Safety, Activity Modification, Education of Plan of Care Patient demonstrates compliance with HEP?: Yes Short Term Goals Goal #1: Patient independent and compliant in HEP. Goal to be met by: 11/13/17 Progress towards Goal:: Partially Met Goal #2: Pt will consistently clear the right foot with ambulation in department. Goal to be met by: 11/13/17 Progress towards Goal:: Progressing Goal #3: Left SLR equal to the right. Goal to be met by: 11/13/17 (N/A) Progress towards Goal:: Progressing Goal #4: Bilateral hip strength 4+/5. Goal to be met by: 11/13/17 Progress towards Goal:: Partially Met Skilled Nursing Goals Goal #1: Pt knows HEP and to continue exercises to maintain functional level at D/C. Goal to be met by: 12/09/17 Progress towards goal: Progressing Goal #2: Average score of FOM's improved to 19% or less impairment. Goal to be met by: 12/09/17 Goal #3: Pt's gait speed improved to .80 m/s showing her to be a community ambulator Goal to be met by: 12/09/17 (.86 m/s) Progress towards goal: Met Goal #4: Pt to perform prolonged standing for ADL's and walking with min. back pain. Goal to be met by: 12/09/17 Progress towards goal: Progressing Plan PLAN OF CARE EXPIRES ON:: 12/09/17 ORDER # VISITS AND/OR THROUGH DATE: 12/09/17 PLAN: Continue PT to elimnate back pain,strengthen the core/LE's for safe ADL'S.
--- NOTE | 2017-11-16 10:19 | RS.OPPTDN ---
Subjective Date of Note: 11/16/17 Visit #: 7 Date of Evaluation: 10/27/17 Payer Source: MEDICARE Treatment Diagnosis: Back pain and unstable gait Current Subjective/complaints:: Patient reports yesterday was a good day,but sore and stiff today.She generally feels better as the day progresses. *Precautions: . Pain Assessment - Pain Description Pain Location: back Pain Description: stiff and sore ,but no sharp pain in the back or with walking Current Pain Intensity: not rated today - Heat/Cryotherapy Treatment: Hot Pack (20 mins. prior to balance exercises) Interventions - Exercise/Activities/Manual Therapy Exercises/Activities: 35 mins. total , of NMR activity on the [employer] BALANCE SYSTEM for postural stability with eyes open,eyes closed.Limits of stability, weight shifting,toss/catch game. Total minutes of Exercise: 35 Manual Therapy: NA Total minutes of Manual Therapy: 0 HOME EXERCISE PROGRAM: Hip flexion in reclined position due to reporting the sitting was eliciting back pain.Continue LAQ's and walk as tolerated. - Charges Timed Code Treatment Minutes: 35 Total Treatment Time: 55 Procedures billed for this date of service:: hp,NMR 2 Assessment: Patient continues to have dificulty with weight shift posteriorly/ left,but is able to self-correct the mild loss of balance.She requires tactile and verbal cues for this motion.Her overall balance is better,static and dynamic.Her gait pattern has a widened BIENVENIDO as she fatigues,but her steps are more continuous.She is very attentive and motivated to improve. Patient Education: Education of diagnosis, Body/Joint mechanics, Home Exercise Program, Home Safety, Activity Modification, Education of Plan of Care Patient demonstrates compliance with HEP?: Yes Short Term Goals Goal #1: Patient independent and compliant in HEP. Goal to be met by: 11/13/17 Progress towards Goal:: Partially Met Goal #2: Pt will consistently clear the right foot with ambulation in department. Goal to be met by: 11/13/17 (80%) Progress towards Goal:: Partially Met Goal #3: Left SLR equal to the right. Goal to be met by: 11/13/17 (N/A) Progress towards Goal:: Progressing Goal #4: Bilateral hip strength 4+/5. Goal to be met by: 11/13/17 Progress towards Goal:: Partially Met Academic Vice President Goals Goal #1: Pt knows HEP and to continue exercises to maintain functional level at D/C. Goal to be met by: 12/09/17 Progress towards goal: Partially Met Goal #2: Average score of FOM's improved to 19% or less impairment. Goal to be met by: 12/09/17 Progress towards goal: Progressing Goal #3: Pt's gait speed improved to .80 m/s showing her to be a community ambulator Goal to be met by: 12/09/17 (.86 m/s) Progress towards goal: Met Goal #4: Pt to perform prolonged standing for ADL's and walking with min. back pain. Goal to be met by: 12/09/17 Progress towards goal: Partially Met Plan PLAN OF CARE EXPIRES ON:: 12/09/17 ORDER # VISITS AND/OR THROUGH DATE: 12/09/17 PLAN: Continue PT to eliminate back pain ,increase LE strength,resulting in safe gait.
--- NOTE | 2017-11-21 09:58 | RS.OPPTDN ---
Subjective Date of Note: 11/21/17 Visit #: 8 Date of Evaluation: 10/27/17 Payer Source: MEDICARE Treatment Diagnosis: Back pain and unstable gait Current Subjective/complaints:: Patient reports elevated back pain due to being busy at home yesterday doing laundry ,cleaning ,etc.She takes Aleve for relief. *Precautions: . Pain Assessment - Pain Description Pain Location: low back Pain Description: Dull, Aching, Chronic Current Pain Intensity: /10 - Heat/Cryotherapy Treatment: Hot Pack (20 mins. prior to exercises) Interventions - Exercise/Activities/Manual Therapy Exercises/Activities: 40 mins. total ,beginning on leg press , 03/20 @ 60 # , @ 75 #,then isometric hip abd/add using small therapy ball.Passive heel cord stretches x 10 each LE.Standing balance activities of side-stepping,back-steps with CGA of 1. Total minutes of Exercise: 40 Manual Therapy: NA Total minutes of Manual Therapy: 0 HOME EXERCISE PROGRAM: Hip flexion in reclined position due to reporting the sitting was eliciting back pain.Continue LAQ's and walk as tolerated. - Charges Timed Code Treatment Minutes: 40 Total Treatment Time: 60 Procedures billed for this date of service:: hp,ex 3 Assessment: Patient progressing well,has increased strength in the LE's and trunk extensors.Her gait pattern has widened BIENVENIDO,but she has improved foot clearance on the L and R. Patient Education: Education of diagnosis, Body/Joint mechanics, Home Exercise Program, Home Safety, Activity Modification, Education of Plan of Care Patient demonstrates compliance with HEP?: Yes Short Term Goals Goal #1: Patient independent and compliant in HEP. Goal to be met by: 11/13/17 Progress towards Goal:: Partially Met Goal #2: Pt will consistently clear the right foot with ambulation in department. Goal to be met by: 11/13/17 Progress towards Goal:: Met Goal #3: Left SLR equal to the right. Goal to be met by: 11/13/17 (N/A) Progress towards Goal:: Progressing Goal #4: Bilateral hip strength 4+/5. Goal to be met by: 11/13/17 Progress towards Goal:: Partially Met Loft Worker Apprentice Goals Goal #1: Pt knows HEP and to continue exercises to maintain functional level at D/C. Goal to be met by: 12/09/17 Progress towards goal: Partially Met Goal #2: Average score of FOM's improved to 19% or less impairment. Goal to be met by: 12/09/17 Progress towards goal: Progressing Goal #3: Pt's gait speed improved to .80 m/s showing her to be a community ambulator Goal to be met by: 12/09/17 (.86 m/s) Progress towards goal: Met Goal #4: Pt to perform prolonged standing for ADL's and walking with min. back pain. Goal to be met by: 12/09/17 Progress towards goal: Partially Met Plan PLAN OF CARE EXPIRES ON:: 12/09/17 ORDER # VISITS AND/OR THROUGH DATE: 12/09/17 PLAN: Continue PT to eliminate back pain by doing core/LE strengthening,also increase safety level for gait on uneven surfaces.
--- NOTE | 2017-11-23 10:21 | RS.OPPTDN ---
Subjective Date of Note: 11/23/17 Visit #: 9 Date of Evaluation: 10/27/17 Payer Source: MEDICARE Treatment Diagnosis: Back pain and unstable gait Current Subjective/complaints:: Patient very pleased with her progress.She requests D/C today,feels safe and is doing her HEP. *Precautions: . Pain Assessment - Pain Description Pain Location: lumbar Pain Description: Dull, Chronic Current Pain Intensity: 2/10 - Heat/Cryotherapy Treatment: Hot Pack (20 mins. prior to ther. act.) Interventions - Exercise/Activities/Manual Therapy Exercises/Activities: 40 mins. total ,O[place]estry LBP assessment and Tinetti gait/ balance testing done .HEP review. Total minutes of Exercise: 40 Manual Therapy: NA Total minutes of Manual Therapy: 0 HOME EXERCISE PROGRAM: Hip flexion in reclined position due to reporting the sitting was eliciting back pain.Continue LAQ's and walk as tolerated. - Charges Timed Code Treatment Minutes: 40 Total Treatment Time: 60 Procedures billed for this date of service:: hp,Ther. Act. 3 Assessment: All goals met,good understanding of HEP and improved safety awareness for ADL's. Patient Education: Education of diagnosis, Body/Joint mechanics, Home Exercise Program, Home Safety, Activity Modification, Education of Plan of Care Patient demonstrates compliance with HEP?: Yes Short Term Goals Goal #1: Patient independent and compliant in HEP. Goal to be met by: 11/13/17 Progress towards Goal:: Met Goal #2: Pt will consistently clear the right foot with ambulation in department. Goal to be met by: 11/13/17 Progress towards Goal:: Met Goal #3: Left SLR equal to the right. Goal to be met by: 11/13/17 (N/A) Progress towards Goal:: Met Goal #4: Bilateral hip strength 4+/5. Goal to be met by: 11/13/17 Progress towards Goal:: Met Electric Melt Operator Goals Goal #1: Pt knows HEP and to continue exercises to maintain functional level at D/C. Goal to be met by: 12/09/17 Progress towards goal: Met Goal #2: Average score of FOM's improved to 19% or less impairment. Goal to be met by: 12/09/17 (18%) Progress towards goal: Met Goal #3: Pt's gait speed improved to .80 m/s showing her to be a community ambulator Goal to be met by: 12/09/17 (.86 m/s) Progress towards goal: Met Goal #4: Pt to perform prolonged standing for ADL's and walking with min. back pain. Goal to be met by: 12/09/17 Progress towards goal: Met Plan PLAN OF CARE EXPIRES ON:: 12/09/17 ORDER # VISITS AND/OR THROUGH DATE: 12/09/17 PLAN: D/C.
--- NOTE | 2017-11-28 09:01 | RS.OPPTDC ---
Date of Discharge: 11/23/17 Date of Evaluation: 10/27/17 Number of Visits: 9 Treatment Diagnosis: Back pain and unstable gait Current Complaints/Gains: Mrs. Parr reports being very pleased with her progress. Reports feeling safe on her feet and she is performing her HEP. Rates back pain 2/10 with activity. Functional Outcome Measure Oswestry LBP: 28 (28% impairment) Tinetti: 7 (7% impairment) - G Codes & Severity Modifier G Codes & Modifier: Mob goal CI. Mob D/C CI Source of G Code score: Average of Oswestry and Tinetti assessment. Patient improved in all areas of safety with gait and balance. Improvements in Oswestry score are in areas of pain intensity, personal care, sitting, sleeping, and changing degree of pain. Interventions - Exercise/Activities/Manual Therapy Exercises/Activities: NA Manual Therapy: NA HOME EXERCISE PROGRAM: Hip flexion in reclined position due to reporting the sitting was eliciting back pain.Continue LAQ's and walk as tolerated. - Objective Findings Observations,measurements,etc.: Mrs. Parr demontrates .86 m/sec gait speed. Demonstrates consistency clearing the right foot during swing phase. She is independent with her HEP and motivated to continue it on her own. Hip strength 4+/5. - Charges Timed Code Treatment Minutes: NA Total Treatment Time: NA Procedures billed for this date of service:: NA Assessment Assessment: Good improvement with pain level and safety with mobility. She is able to continue her HEP on her own. She has met all her goals. She agrees with D/C at this time. Short Term Goals Goal #1: Patient independent and compliant in HEP. Goal to be met by: 11/13/17 Progress towards Goal:: Met Goal #2: Pt will consistently clear the right foot with ambulation in department. Goal to be met by: 11/13/17 Progress towards Goal:: Met Goal #3: Left SLR equal to the right. Goal to be met by: 11/13/17 (N/A) Progress towards Goal:: Met Goal #4: Bilateral hip strength 4+/5. Goal to be met by: 11/13/17 Progress towards Goal:: Met Care Home Goals Goal #1: Pt knows HEP and to continue exercises to maintain functional level at D/C. Goal to be met by: 12/09/17 Progress towards goal: Met Goal #2: Average score of FOM's improved to 19% or less impairment. Goal to be met by: 12/09/17 (18%) Progress towards goal: Met Goal #3: Pt's gait speed improved to .80 m/s showing her to be a community ambulator Goal to be met by: 12/09/17 (.86 m/s) Progress towards goal: Met Goal #4: Pt to perform prolonged standing for ADL's and walking with min. back pain. Goal to be met by: 12/09/17 Progress towards goal: Met Plan Reason for Discharge:: No Further Skilled Therapy Indicated
== END 2017-12-03 23:59 ==
PROVIDERS: ATTEND Physician Assistant
DX: M54.5 Low back pain (principal); R26.9 Unspecified abnormalities of gait and mobility; R29.6 Repeated falls

== ENCOUNTER 2018-04-05 09:00 | Outpatient (RCR) ==
[2015-12-28 02:20] VITALS: BMI 21.6
--- NOTE | 2018-03-20 08:32 | RS.OPPTEV2 ---
Date of Note: 03/19/18 Visit #: 1 Number of visits approved by Insurance: NA Date of Evaluation: 03/19/18 Payer Source: MEDICARE Treatment Diagnosis: Gait Difficulty History of Condition/Mechanism of Injury:: Ms. Parr reports noticing difficulty with her walking and balance over the last three months. She fell in July of 2017 and attended Outpatient PT in October and November of 2017, which helped her back and confidence with walking. She has since noticed that she veers back and forth sometimes when she walks and has to hold onto furniture when walking inside her home. Prior Level of Function.....Patient was independent with: ADL's, Self Care, Ambulation/Mobility, Community Integration/Access Functional Limitations: ADL's, Reaching, Carrying, Standing, Bending, Squatting , Ambulation, Community Access/Integration Current Subjective/complaints:: Ms. Parr states she has trouble with her balance. States any dizziness she has, goes away within seconds and is usually with neck extension or quick movements. States she does not have dizziness while walking. She has not fallen since July of 2017. She does not use an assistive device. She denies tingling or numbness in the LE's and has not noticed any weakness in her legs. States her back does still give her problems, but it is not as bad as it was when she came for therapy in October 2017. *Precautions: . Medical History Medical History: Hypertension, Arthritis, Cancer Medical History Comments:: Anxiety/Depression Surgical History: Cholecystectomy, Tonsillectomy Surgical History Comments:: bilteral hip replacement,Appendectomy & cataract surgery. Smoking Status: Never smoker Hx Home Medications: Metroprolol, Escitalopram,armour thyroid Patient's Goals: Her goal is to improve her balance and safety with walking. Pain Assessment - Pain Description Pain Location: low back Current Pain Intensity: 6/10 Worst Pain Intensity: 9/10 Functional Outcome Measure Tinetti: 19 () - G Codes & Severity Modifier G Codes & Modifier: NA Source of G Code score: NA Observation - Observation Posture: Forward Head, Rounded Shoulders, Increased Thoracic Kyphosis, Decreased Lumbar Lordosis Gait - Gait Pattern Gait Comments: Ms. Parr ambulates without an assistive device, with a narrow base of support and IR of both LE's, especially the right. She demonstrates minimal foot clearance on the right and maintains a flexed posture at the lumbar spine while ambulating. Patient deviates from a straight path periodically during ambulation in the department. Gait speed of .78 meters/ second. General Range of Motion: Bilateral LE AROM is WFL's. Muscle Strength: Right hip ER and abduction 4-/5. All else 4+/5 throughout LE' s. Trunk 4/5. Sensation - Sensation Right Lower Extremity: Intact/Normal Left Lower Extremity: Intact/Normal Balance - Sitting Balance Static Sitting Balance: Good Dynamic Sitting Balance: Good - Standing Balance Static Standing Balance: Good Dynamic Standing Balance: Fair Coordination - Tests Bilateral Heel to Stewart: Normal/Intact Toe Tapping: Normal/Intact Additional Comments: Additional Comments: Resting BP in sitting 171/83, after 3 mins 167/71. Standing 147/74. Following evaluation: BP in sitting 175/83, standing 152/80. Interventions - Exercise/Activities/Manual Therapy Exercises/Activities: NA Manual Therapy: NA HOME EXERCISE PROGRAM: none given today - Charges Timed Code Treatment Minutes: 0 mins Total Treatment Time: 55 mins Procedures billed for this date of service:: EVAL Medium EVALUATION COMPLEXITY LEVEL EVALUATION COMPLEXITY LEVEL: HISTORY: Medium (Hx of fall, Back pain, gait difficulty), EXAM OF BODY SYSTEMS: Medium (ROM, MS, sensation, coordination, balance, gait), CLINICAL PRESENTATION: Medium, CLINICAL DECISION MAKING: Medium Assessment Assessment: Ms. Parr presents to therapy with a diagnosis of gait difficulty. Tinetti Assessment Score on 19 today, puts her in the category of Moderate risk for falls. She exhibits a narrow base of support, IR of the LE's, flexed forward posture, and deviates from a straight path. Gait speed of .78 m/s categorizes her as a limited community ambulator. She demonstrates potential to benefit from strengthening to the right LE and balance activities to reduce her risk for falls. Patient Education: Education of diagnosis, Home Safety, Education of Plan of Care Rehab Potential: Good Short Term Goals Goal #1: Patient independent and compliant in HEP. Goal to be met by: 04/02/18 Goal #2: Right hip ER and Abduction 4/5. Goal to be met by: 04/02/18 Goal #3: Pt will amb. consistently with good base of support. Goal to be met by: 04/02/18 Goal #4: . Residential Goals Goal #1: Pt knows HEP and to continue exercises to maintain functional level at D/C. Goal to be met by: 04/23/18 Goal #2: Score on Tinetti Assessment improved to 24/28. Goal to be met by: 04/23/18 Goal #3: Pt's gait speed improved to .80 m/s showing her to be a community ambulator Goal to be met by: 04/23/18 Goal #4: Pt to amb. community distances with good safety & min. deviations. Goal to be met by: 04/23/18 Plan - Treatment to be Provided Procedures: Therapeutic Exercises, Therapeutic Activity, Gait Training, Neuromuscular Rehab, Patient Education Modalities: No Modalities - Treatment Plan Frequency: 2-3 X week Duration: 4 weeks Dates of Certified Industrial Hygienist Goals: 04/23/18 Expiration date of current Insurance Approval:: NA - Treatment Code (1) Impairment of balance Code(s): R26.89 - OTHER ABNORMALITIES OF GAIT AND MOBILITY Comments: R26.89 (2) At high risk for falls Code(s): Z91.81 - HISTORY OF FALLING Comments: Z91.81 At risk for falls
--- NOTE | 2018-03-20 10:13 | RS.OPPTDN ---
Subjective Date of Note: 03/20/18 Visit #: 2 Number of visits approved by Insurance: NA Date of Evaluation: 03/19/18 Payer Source: MEDICARE Treatment Diagnosis: Gait Difficulty Current Subjective/complaints:: Patient reports no back pain this morning,but feels , "wobbly ." *Precautions: . Interventions - Exercise/Activities/Manual Therapy Exercises/Activities: 40 mins. total of isometric hip abd/add using therapy ball for adduction,gait belt for abduction.Supine hip abduction with leg fully extended.SI muscle energy for leg length discrepancy correction.Gentle bilateral hamstring stretches,10 reps on each LE. Total minutes of Exercise: 40 Manual Therapy: NA Total minutes of Manual Therapy: 0 HOME EXERCISE PROGRAM: Seated isometric hip abduction,progress to theraband for seated hip abduction,supine hip abduction.Pillow or ball squeeze in hooklying position. - Charges Timed Code Treatment Minutes: 40 Total Treatment Time: 45 Procedures billed for this date of service:: ex 3 Assessment: Patient has leg length discrepancy today ,with R LE longer,which does decrease after SI muscle energy and hamstring stretches done .She does fatigue easily in the R gluteals and hip abductors,but is attentive to the proper technique for each exercise. Patient Education: Education of diagnosis, Body/Joint mechanics, Home Exercise Program, Home Safety, Activity Modification, Education of Plan of Care Patient demonstrates compliance with HEP?: Yes Short Term Goals Goal #1: Patient independent and compliant in HEP. Goal to be met by: 04/02/18 Progress towards Goal:: Progressing Goal #2: Right hip ER and Abduction 4/5. Goal to be met by: 04/02/18 Goal #3: Pt will amb. consistently with good base of support. Goal to be met by: 04/02/18 Goal #4: . Snf Goals Goal #1: Pt knows HEP and to continue exercises to maintain functional level at D/C. Goal to be met by: 04/23/18 Progress towards goal: Progressing Goal #2: Score on Tinetti Assessment improved to 24/28. Goal to be met by: 04/23/18 Goal #3: Pt's gait speed improved to .80 m/s showing her to be a community ambulator Goal to be met by: 04/23/18 Goal #4: Pt to amb. community distances with good safety & min. deviations. Goal to be met by: 04/23/18 Plan Dates of Traveling Auditor Goals: 04/23/18 Expiration date of current Insurance Approval:: NA PLAN: Cont. skilled PT to increase the strength in her hips,resulting in safer mobility on all surfaces.
--- NOTE | 2018-03-22 10:05 | RS.OPPTDN ---
Subjective Date of Note: 03/22/18 Visit #: 3 Number of visits approved by Insurance: NA Date of Evaluation: 03/19/18 Payer Source: MEDICARE Treatment Diagnosis: Gait Difficulty Current Subjective/complaints:: Reports increased muscle soreness after last session ,but no sharp pain present. *Precautions: . Pain Assessment - Pain Description Pain Location: hips/lateral thighs Pain Description: Dull, Aching Current Pain Intensity: 3 Interventions - Exercise/Activities/Manual Therapy Exercises/Activities: 40 mins. total of isometric hip abd/add using therapy ball for adduction,L sidelying for R LE clamshell motion,then T LE abduction ,2/ 10 each.Bilateral leg press @ 105 ,/15.Standing mini squats using therapy ball behind back,04/15,ended session with side-stepping to R and L ,CGA of 1. Total minutes of Exercise: 40 Manual Therapy: NA Total minutes of Manual Therapy: 0 HOME EXERCISE PROGRAM: Seated isometric hip abduction,progress to theraband for seated hip abduction,supine hip abduction.Pillow or ball squeeze in hooklying position. - Charges Timed Code Treatment Minutes: 40 Total Treatment Time: 40 Procedures billed for this date of service:: ex 3 Assessment: Patient is able to do L sidelying exercises properly ,but for short duration due to pressure on the L trochanter area.She reports fatigue only in the legs ,and no back pain if she changes positions frequently.She has improved awareness of her posture and knows her limitations with standing tasks at home. Patient Education: Education of diagnosis, Body/Joint mechanics, Home Exercise Program, Home Safety, Activity Modification, Education of Plan of Care Patient demonstrates compliance with HEP?: Yes Short Term Goals Goal #1: Patient independent and compliant in HEP. Goal to be met by: 04/02/18 Progress towards Goal:: Progressing Goal #2: Right hip ER and Abduction 4/5. Goal to be met by: 04/02/18 Progress towards Goal:: Progressing Goal #3: Pt will amb. consistently with good base of support. Goal to be met by: 04/02/18 Progress towards Goal:: Progressing Goal #4: . Alf Goals Goal #1: Pt knows HEP and to continue exercises to maintain functional level at D/C. Goal to be met by: 04/23/18 Progress towards goal: Progressing Goal #2: Score on Tinetti Assessment improved to 24/28. Goal to be met by: 04/23/18 Goal #3: Pt's gait speed improved to .80 m/s showing her to be a community ambulator Goal to be met by: 04/23/18 Goal #4: Pt to amb. community distances with good safety & min. deviations. Goal to be met by: 04/23/18 Plan Dates of Crop Or Livestock Tenant Farmer Goals: 04/23/18 Expiration date of current Insurance Approval:: NA PLAN: Cont. skilled PT to increase strength in LE's /hips for safer gait.
--- NOTE | 2018-03-27 09:59 | RS.OPPTDN ---
Subjective Date of Note: 03/27/18 Visit #: 4 Number of visits approved by Insurance: NA Date of Evaluation: 03/19/18 Payer Source: MEDICARE Treatment Diagnosis: Gait Difficulty Current Subjective/complaints:: Reports muscle sorenes after last session ,but better the following day. *Precautions: . Interventions - Exercise/Activities/Manual Therapy Exercises/Activities: 45 mins. total ,beginning with supine LE AROM in all directions with 2# resistance,including alternating hip flex,hip abd /adduction ,heelslides ,bridging,isometric hip abd/adduction.Progressed to bilateral leg press ,05/18 @ 105 #.HEP review in PAIN FREE ROM. Total minutes of Exercise: 45 Manual Therapy: NA Total minutes of Manual Therapy: 0 HOME EXERCISE PROGRAM: Seated isometric hip abduction,progress to theraband for seated hip abduction,supine hip abduction.Pillow or ball squeeze in hooklying position. - Charges Timed Code Treatment Minutes: 45 Total Treatment Time: 45 Procedures billed for this date of service:: ex 3 Assessment: Patient has strength in LE's ,with the L being stronger than R ,but is progressing in both LE's ,better eccentric control.She reports fatigue more quickly in the R hip with resistive exercises.She continues to ambulate with IR of both hips,R > L.She does not require assistive for functional gait distances. Patient Education: Education of diagnosis, Body/Joint mechanics, Home Exercise Program, Home Safety, Activity Modification, Education of Plan of Care Patient demonstrates compliance with HEP?: Yes Short Term Goals Goal #1: Patient independent and compliant in HEP. Goal to be met by: 04/02/18 Progress towards Goal:: Progressing Goal #2: Right hip ER and Abduction 4/5. Goal to be met by: 04/02/18 Progress towards Goal:: Progressing Goal #3: Pt will amb. consistently with good base of support. Goal to be met by: 04/02/18 Progress towards Goal:: Progressing Goal #4: . Custodial Goals Goal #1: Pt knows HEP and to continue exercises to maintain functional level at D/C. Goal to be met by: 04/23/18 Progress towards goal: Progressing Goal #2: Score on Tinetti Assessment improved to 24/28. Goal to be met by: 04/23/18 Goal #3: Pt's gait speed improved to .80 m/s showing her to be a community ambulator Goal to be met by: 04/23/18 Goal #4: Pt to amb. community distances with good safety & min. deviations. Goal to be met by: 04/23/18 Progress towards goal: Progressing Plan Dates of Insulation Blower Goals: 04/23/18 Expiration date of current Insurance Approval:: NA PLAN: Cont. skilled PT to maximize strength in core and both LE's,resulting in safer transfers and gait.
--- NOTE | 2018-03-29 10:46 | RS.CXNS ---
Date of scheduled appointment: 03/29/18 Type: Cancel Reason for Cancel/NS: Called ,is sick today.
--- NOTE | 2018-04-02 10:08 | RS.OPPTDN ---
Subjective Date of Note: 04/02/18 Visit #: 5 Number of visits approved by Insurance: NA Date of Evaluation: 03/19/18 Payer Source: MEDICARE Treatment Diagnosis: Gait Difficulty Current Subjective/complaints:: Patient reports she had a quiet weekend.She reports no pain in back or legs today,but dull aching in multiple joints due to weather changes. *Precautions: . Interventions - Exercise/Activities/Manual Therapy Exercises/Activities: 50 mins. total ,beginning with supine LE AROM in all directions with 3# resistance,including alternating hip flex;hip abd /adduction with blue theraband ,heelslides .Progressed to bilateral leg press ,15 @ 105 # with seat closer today (to increase knee flexion .) Total minutes of Exercise: 50 Manual Therapy: NA Total minutes of Manual Therapy: 0 HOME EXERCISE PROGRAM: Seated isometric hip abduction,progress to theraband for seated hip abduction,supine hip abduction.Pillow or ball squeeze in hooklying position. - Objective Findings Observations,measurements,etc.: Patient request to take her BP today,is 146/83. - Charges Timed Code Treatment Minutes: 50 Total Treatment Time: 50 Procedures billed for this date of service:: ex 3 Assessment: Patient progressing well,has steadier transfers from sit to stand , reports it is less difficult to go up steps at home.She fatigues more easily in the R LE and R hip ,especially with hip abduction and ER.She is motivated to improve and attentive to recommendations from therapy staff. Patient Education: Education of diagnosis, Body/Joint mechanics, Home Exercise Program, Home Safety, Activity Modification, Education of Plan of Care Patient demonstrates compliance with HEP?: Yes Short Term Goals Goal #1: Patient independent and compliant in HEP. Goal to be met by: 04/02/18 Progress towards Goal:: Partially Met (Independent with supine and sitting exercises,needs further instruction for safety with standing exercises.) Goal #2: Right hip ER and Abduction 4/5. Goal to be met by: 04/02/18 Progress towards Goal:: Progressing Goal #3: Pt will amb. consistently with good base of support. Goal to be met by: 04/02/18 Progress towards Goal:: Progressing Goal #4: . National Accounts Sales Goals Goal #1: Pt knows HEP and to continue exercises to maintain functional level at D/C. Goal to be met by: 04/23/18 Progress towards goal: Progressing Goal #2: Score on Tinetti Assessment improved to 24/28. Goal to be met by: 04/23/18 Goal #3: Pt's gait speed improved to .80 m/s showing her to be a community ambulator Goal to be met by: 04/23/18 Goal #4: Pt to amb. community distances with good safety & min. deviations. Goal to be met by: 04/23/18 Progress towards goal: Progressing Plan Dates of National Accounts Sales Goals: 04/23/18 Expiration date of current Insurance Approval:: NA PLAN: Cnt. skilled PT to strengthen the LE's / trunk for safe ADL's.
--- NOTE | 2018-04-05 11:02 | RS.OPPTDN ---
Subjective Date of Note: 04/05/18 Visit #: 6 Number of visits approved by Insurance: NA Date of Evaluation: 03/19/18 Payer Source: MEDICARE Treatment Diagnosis: Gait Difficulty Current Subjective/complaints:: Patient reports aching today due to extremely cold weather,but does feel the therapy is helping.She does mention her BP has been higher recently.We will monitor it today. *Precautions: . Pain Assessment - Pain Description Pain Location: multiple jonts due to arthritis. Pain Description: Dull, Aching Current Pain Intensity: not rated Interventions - Exercise/Activities/Manual Therapy Exercises/Activities: 40 mins. total ,beginning with supine LE AROM in all directions with 3# resistance,including alternating hip flex;hip abd /adduction with blue theraband ,heelslides .Progressed to bilateral leg press ,03/20 @ 105 # BP was 171 /87 with low level supine exercises,rested 3 mins,BP was 161/ 87.She agrees to leg press due to no c/o,but BP increased to 180/103.Treatment stopped,called Dr Escamilla office,spoke with nurse and patient is going there to be assessed.Assisted patient to car with no c/o from patient. Total minutes of Exercise: 40 Manual Therapy: NA Total minutes of Manual Therapy: 0 HOME EXERCISE PROGRAM: Seated isometric hip abduction,progress to theraband for seated hip abduction,supine hip abduction.Pillow or ball squeeze in hooklying position. - Charges Timed Code Treatment Minutes: 40 Total Treatment Time: 50 Procedures billed for this date of service:: ex 3 Assessment: Patient has increased LE/trunk strength,no loss of balance with gait entering /exiting the clinic .She continues to have the R LE internally rotated with walking ,but less than when evaluated. Patient Education: Education of diagnosis, Body/Joint mechanics, Home Exercise Program, Home Safety, Activity Modification, Education of Plan of Care Patient demonstrates compliance with HEP?: Yes Short Term Goals Goal #1: Patient independent and compliant in HEP. Goal to be met by: 04/02/18 Progress towards Goal:: Partially Met (Independent with supine and sitting exercises,needs further instruction for safety with standing exercises.) Goal #2: Right hip ER and Abduction 4/5. Goal to be met by: 04/02/18 Progress towards Goal:: Progressing Goal #3: Pt will amb. consistently with good base of support. Goal to be met by: 04/02/18 Progress towards Goal:: Progressing Goal #4: . Director Of Enterprise Architecture Goals Goal #1: Pt knows HEP and to continue exercises to maintain functional level at D/C. Goal to be met by: 04/23/18 Progress towards goal: Progressing Goal #2: Score on Tinetti Assessment improved to . Goal to be met by: 04/23/18 Goal #3: Pt's gait speed improved to .80 m/s showing her to be a community ambulator Goal to be met by: 04/23/18 Goal #4: Pt to amb. community distances with good safety & min. deviations. Goal to be met by: 04/23/18 Progress towards goal: Progressing Plan Dates of Long-Term Goals: 04/23/18 Expiration date of current Insurance Approval:: NA PLAN: Cont. skilled PT to achieve the highest level of function of safety with ADL's.
== END 2018-04-05 23:59 ==
PROVIDERS: ATTEND Family Medicine
DX: R26.9 Unspecified abnormalities of gait and mobility (principal); Z91.81 History of falling

== ENCOUNTER 2018-04-19 09:00 | Outpatient (RCR) ==
[2015-12-28 02:20] VITALS: BMI 21.6
--- NOTE | 2018-04-10 10:09 | RS.OPPTDN ---
Subjective Date of Note: 04/10/18 Visit #: 7 Number of visits approved by Insurance: NA Date of Evaluation: 03/19/18 Payer Source: MEDICARE Treatment Diagnosis: Gait Difficulty Current Subjective/complaints:: Patient reports feeling better,the did increase her blood pressure meds.BP taken upon arrival is 138/83. *Precautions: . Interventions - Exercise/Activities/Manual Therapy Exercises/Activities: 40 mins. total ,beginning with seated LE AROM and 2.5 # ,3 /10 each of hip flexion and LAQ's.Standing hip abduction,side stepping to L and R ,stepping over 2" object in floor. Heel to toe steps with moderate assist of 1.Standing R hip ER 3/10. Total minutes of Exercise: 40 Manual Therapy: NA Total minutes of Manual Therapy: 0 HOME EXERCISE PROGRAM: Seated isometric hip abduction,progress to theraband for seated hip abduction,supine hip abduction.Pillow or ball squeeze in hooklying position. - Charges Timed Code Treatment Minutes: 40 Total Treatment Time: 45 Procedures billed for this date of service:: ex 3 Assessment: Patient has increased LE strength ,but can benefit from more R hip ER strengthening,continues to walk with R hip/LE internally rotated.She is motivated to improve. Patient Education: Education of diagnosis, Body/Joint mechanics, Home Exercise Program, Home Safety, Activity Modification, Education of Plan of Care Patient demonstrates compliance with HEP?: Yes Short Term Goals Goal #1: Patient independent and compliant in HEP. Goal to be met by: 04/02/18 Progress towards Goal:: Partially Met (Independent with supine and sitting exercises,needs further instruction for safety with standing exercises.) Comments:: Needs further in standing exercises for safe body mechanics. Goal #2: Right hip ER and Abduction 4/5. Goal to be met by: 04/02/18 Progress towards Goal:: Progressing Goal #3: Pt will amb. consistently with good base of support. Goal to be met by: 04/02/18 Progress towards Goal:: Progressing Goal #4: . Long-Term Goals Goal #1: Pt knows HEP and to continue exercises to maintain functional level at D/C. Goal to be met by: 04/23/18 Progress towards goal: Progressing Goal #2: Score on Tinetti Assessment improved to 24/28. Goal to be met by: 04/23/18 Progress towards goal: Progressing Goal #3: Pt's gait speed improved to .80 m/s showing her to be a community ambulator Goal to be met by: 04/23/18 Progress towards goal: Progressing Goal #4: Pt to amb. community distances with good safety & min. deviations. Goal to be met by: 04/23/18 Progress towards goal: Progressing Plan Dates of Long-Term Goals: 04/23/18 Expiration date of current Insurance Approval:: NA PLAN: Cont . PT to maximize LE strength for steadier gait .
--- NOTE | 2018-04-12 10:02 | RS.OPPTDN ---
Subjective Date of Note: 04/12/18 Visit #: 8 Number of visits approved by Insurance: NA Date of Evaluation: 03/19/18 Payer Source: MEDICARE Treatment Diagnosis: Gait Difficulty Current Subjective/complaints:: Patient reports feeling steadier on her feet.pleased with her progress since beginning therapy.She is compliant to HEP. *Precautions: . Interventions - Exercise/Activities/Manual Therapy Exercises/Activities: 45 mins. total ,beginning with supine LE AROM and 3# ,3/ 10 each of alternate hip flexion and SAQ's.LAQ's with 3 # ,then R hip anduction with red theraband resistance.Standing balance activities of side stepping to L and R with supervision ,focusing on R foot placement. Total minutes of Exercise: 45 Manual Therapy: NA Total minutes of Manual Therapy: 0 HOME EXERCISE PROGRAM: Seated isometric hip abduction,progress to theraband for seated hip abduction,supine hip abduction.Pillow or ball squeeze in hooklying position. - Charges Timed Code Treatment Minutes: 45 Total Treatment Time: 50 Procedures billed for this date of service:: ex 3 Assessment: Patient has increased strength in the R hip external rotators ,as she has less R hip internal rotation with walking when given cues.She reports fatigue only with exercises ,no LE or hip pain. Patient Education: Education of diagnosis, Body/Joint mechanics, Home Exercise Program, Home Safety, Activity Modification, Education of Plan of Care Patient demonstrates compliance with HEP?: Yes Short Term Goals Goal #1: Patient independent and compliant in HEP. Goal to be met by: 04/02/18 Progress towards Goal:: Partially Met (Independent with supine and sitting exercises,needs further instruction for safety with standing exercises.) Goal #2: Right hip ER and Abduction 4/5. Goal to be met by: 04/02/18 Progress towards Goal:: Progressing Goal #3: Pt will amb. consistently with good base of support. Goal to be met by: 04/02/18 Progress towards Goal:: Partially Met (This has improved ,but needs cues to correct the IR of R hip/LE.) Goal #4: . Long-Term Goals Goal #1: Pt knows HEP and to continue exercises to maintain functional level at D/C. Goal to be met by: 04/23/18 Progress towards goal: Met Goal #2: Score on Tinetti Assessment improved to 24. Goal to be met by: 04/23/18 Progress towards goal: Progressing Goal #3: Pt's gait speed improved to .80 m/s showing her to be a community ambulator Goal to be met by: 04/23/18 Progress towards goal: Progressing Goal #4: Pt to amb. community distances with good safety & min. deviations. Goal to be met by: 04/23/18 Progress towards goal: Met Plan Dates of Long-Term Goals: 04/23/18 Expiration date of current Insurance Approval:: NA PLAN: Cont. skilled PT ,return to highest LOF for safe gait on all surfaces.
--- NOTE | 2018-04-17 10:06 | RS.OPPTDN ---
Subjective Date of Note: 04/17/18 Visit #: 9 Number of visits approved by Insurance: NA Date of Evaluation: 03/19/18 Payer Source: MEDICARE Treatment Diagnosis: Gait Difficulty Current Subjective/complaints:: Patient states, " I know my balance is getting better ." She is pleased with her progress. *Precautions: . Interventions - Exercise/Activities/Manual Therapy Exercises/Activities: 45 mins. total.Standing balance activities of side stepping to L and R with supervision ,focusing on R foot placement.Step-ups forward/backward on 4 " step,high-stepping ,heel to toe.Weaving around cones placed on floor.Gait speed test ,resulting in .91 m/sec. today. Total minutes of Exercise: 45 Manual Therapy: NA Total minutes of Manual Therapy: 0 HOME EXERCISE PROGRAM: Seated isometric hip abduction,progress to theraband for seated hip abduction,supine hip abduction.Pillow or ball squeeze in hooklying position. - Charges Timed Code Treatment Minutes: 45 Total Treatment Time: 45 Procedures billed for this date of service:: ex 3 Assessment: Progressing well, faster,steadier gait,no recent falls or near falls.She has increased strength in the LE's and both hips.She has less external rotation of the R hip when walking short distances. Patient Education: Education of diagnosis, Body/Joint mechanics, Home Exercise Program, Home Safety, Activity Modification, Education of Plan of Care Patient demonstrates compliance with HEP?: Yes Short Term Goals Goal #1: Patient independent and compliant in HEP. Goal to be met by: 04/02/18 Progress towards Goal:: Met Goal #2: Right hip ER and Abduction 4/5. Goal to be met by: 04/02/18 Progress towards Goal:: Progressing Goal #3: Pt will amb. consistently with good base of support. Goal to be met by: 04/02/18 Progress towards Goal:: Met Goal #4: . Quality Assurance Qa Lab Analyst Goals Goal #1: Pt knows HEP and to continue exercises to maintain functional level at D/C. Goal to be met by: 04/23/18 Progress towards goal: Met Goal #2: Score on Tinetti Assessment improved to 24/28. Goal to be met by: 04/23/18 Progress towards goal: Progressing Goal #3: Pt's gait speed improved to .80 m/s showing her to be a community ambulator Goal to be met by: 04/23/18 (.91 m/sec.) Progress towards goal: Met Goal #4: Pt to amb. community distances with good safety & min. deviations. Goal to be met by: 04/23/18 Progress towards goal: Met Plan Dates of [facility] Goals: 04/23/18 Expiration date of current Insurance Approval:: NA PLAN: Do Tinetti assessment next visit,review all exercises and safety factors for gait on all surfaces.Plan to D/C.
--- NOTE | 2018-04-19 10:04 | RS.OPPTDN ---
Subjective Date of Note: 04/19/18 Visit #: 10 Number of visits approved by Insurance: NA Date of Evaluation: 03/19/18 Payer Source: MEDICARE Treatment Diagnosis: Gait Difficulty Current Subjective/complaints:: Pleased with her progress,agrees with D/C plan today. *Precautions: . Interventions - Exercise/Activities/Manual Therapy Exercises/Activities: 35 mins. total for Tinetti assessment for balance and gait done today.Score of 27/28. Total minutes of Exercise: 35 Manual Therapy: NA HOME EXERCISE PROGRAM: Seated isometric hip abduction,progress to theraband for seated hip abduction,supine hip abduction.Pillow or ball squeeze in hooklying position. - Charges Timed Code Treatment Minutes: 35 Total Treatment Time: 35 Procedures billed for this date of service:: ex 2 Assessment: Progressed well,met all rehab goals.She has excellent safety awareness and understanding of HEP. Patient Education: Education of diagnosis, Body/Joint mechanics, Home Exercise Program, Home Safety, Activity Modification, Education of Plan of Care Patient demonstrates compliance with HEP?: Yes Short Term Goals Goal #1: Patient independent and compliant in HEP. Goal to be met by: 04/02/18 Progress towards Goal:: Met Goal #2: Right hip ER and Abduction 4/5. Goal to be met by: 04/02/18 Progress towards Goal:: Met Goal #3: Pt will amb. consistently with good base of support. Goal to be met by: 04/02/18 Progress towards Goal:: Met Goal #4: . [facility] Goals Goal #1: Pt knows HEP and to continue exercises to maintain functional level at D/C. Goal to be met by: 04/23/18 Progress towards goal: Met Goal #2: Score on Tinetti Assessment improved to 24/28. Goal to be met by: 04/23/18 Progress towards goal: Met Goal #3: Pt's gait speed improved to .80 m/s showing her to be a community ambulator Goal to be met by: 04/23/18 (1.17 m/s) Progress towards goal: Met Goal #4: Pt to amb. community distances with good safety & min. deviations. Goal to be met by: 04/23/18 Progress towards goal: Met Plan Dates of Clinical Research Technician Goals: 04/23/18 Expiration date of current Insurance Approval:: NA PLAN: D/C due to goals met.
--- NOTE | 2018-04-20 13:22 | RS.OPPTDC ---
Date of Discharge: 04/20/18 Date of Evaluation: 03/19/18 Number of Visits: 10 Treatment Diagnosis: Gait Difficulty Current Complaints/Gains: Patient reports she is pleased with her progress. She reports doing her HEP. She feels better. She feels more secure with ambulation. Functional Outcome Measure Tinetti: 27 () - G Codes & Severity Modifier G Codes & Modifier: NA Source of G Code score: Na Gait - Gait Pattern Gait Comments: Patient ambulates without assistive device. Demonstrates good safety awareness. Demonstrates a straight path and consistent foot clearance. Interventions - Exercise/Activities/Manual Therapy Exercises/Activities: NA Manual Therapy: NA HOME EXERCISE PROGRAM: Seated isometric hip abduction,progress to theraband for seated hip abduction,supine hip abduction.Pillow or ball squeeze in hooklying position. - Charges Timed Code Treatment Minutes: NA Total Treatment Time: NA Procedures billed for this date of service:: NA Assessment Assessment: Ms. Parr has met all goals. She has shown increased safety with all mobility and presents to be at low risk for falls at this time. Short Term Goals Goal #1: Patient independent and compliant in HEP. Goal to be met by: 04/02/18 Progress towards Goal:: Met Goal #2: Right hip ER and Abduction 4/5. Goal to be met by: 04/02/18 Progress towards Goal:: Met Goal #3: Pt will amb. consistently with good base of support. Goal to be met by: 04/02/18 Progress towards Goal:: Met Goal #4: . [facility] Goals Goal #1: Pt knows HEP and to continue exercises to maintain functional level at D/C. Goal to be met by: 04/23/18 Progress towards goal: Met Goal #2: Score on Tinetti Assessment improved to 24/28. Goal to be met by: 04/23/18 Progress towards goal: Met Goal #3: Pt's gait speed improved to .80 m/s showing her to be a community ambulator Goal to be met by: 04/23/18 (1.17 m/s) Progress towards goal: Met Goal #4: Pt to amb. community distances with good safety & min. deviations. Goal to be met by: 04/23/18 Progress towards goal: Met Plan Reason for Discharge:: All Goals Met
== END 2018-05-03 23:59 ==
PROVIDERS: ATTEND Family Medicine
DX: S42.291A Other displaced fracture of upper end of right humerus, initial encounter for closed fracture (principal); M25.511 Pain in right shoulder